=== PATIENT | female | born 1950 | race Caucasian/White ===

== ENCOUNTER 2019-01-11 08:49 | Day surgery (SDC) | payer MEDICARE, BC ==
[2019-01-08 15:04] VITALS: BMI 37.8
[2019-01-11 09:09] LABS: #Eosinphils 0.2 thou/uL (0.0-0.7); #Lymphocytes 1.5 thou/uL (1.20-3.40); #Monocytes 0.3 thou/uL (0.11-0.59); #Neutrophils 4.3 thou/uL (1.40-6.50); %Basophils 0.4 % (0.0-1.0); %Eosinophils 3.8 % (0.0-10.0); %Lymphocytes 23.9 % (21.0-51.0); %Monocytes 5.2 % (0.0-10.0); %Neutrophils 66.6 % (42.0-75.0); Hemoglobin 15.1 g/dL (12.0-16.0); Mean Corpuscular HGB CONC 31.5 g/dL (32.0-36.0); Mean Corpuscular Hemoglobin 27.4 pg (27.0-31.0); Mean Corpuscular Volume 86.9 fL (78.0-98.0); Mean Platelet Volume 7.6 fL (7.4-10.4); Platelet Count 287 thou/uL (130-400); RBC Distribution Width 16.1 % (11.5-14.5); White Blood Cell (WBC) Count 6.4 thou/uL (4.8-10.8)
[2019-01-11 09:18] LABS: INR-International Normal Ratio 0.9; PTT 33.4 SEC (22.9-36.1); Prothrombin Time 12.3 SEC (12.0-14.7)
[2019-01-11] MEDS ORDERED: Fentanyl 100 MCG/2 ML VIAL ONE (11:00)
[2019-01-11] MEDS ORDERED: Midazolam HCl 2 mg/2 ml Vial ONE (11:01)
[2019-01-11] MEDS ORDERED: Sodium Bicarbonate 2.5 MEQ/5 ML VIAL ONE (11:01)
[2019-01-11 11:04] VITALS: BP 140/75; TEMP 97.6
--- NOTE | 2019-01-11 13:22 | CT ---
CT-guided suprapubic catheter placement CONSCIOUS SEDATION: At least 40 minutes were spent with the patient for conscious sedation. HISTORY: Neurogenic bladder. Findings after explaining the procedure and answering all questions, limited CT imaging of the pelvis was performed. Initially, the urinary bladder is completely decompressed and behind bowel loops. 500 cc sterile saline was carefully instilled into the urinary bladder using gravity drainage. Suprap ubic approach was planned. Sterile technique, buffered local anesthesia, CT guidance, and conscious sedation were used to carefu lly advance a 12 [place] Meneses catheter into the urinary bladder using trocar technique. Balloon was inflated to hold position. Clear urine was drained. The catheter was secured externally with buffered local anesthesia and 0 silk suture. Patient tolerated the procedure well and was returned to the holding area in good condition for further monitoring. IMPRESSION: Technically successful CT-guided suprapubic catheter placement.
== END 2019-01-11 14:45 | disposition home or self-care (01) ==
LOC: RAD 08:49
PROVIDERS: ATTEND Urology
DX: N31.9 Neuromuscular dysfunction of bladder, unspecified (principal); I10 Essential (primary) hypertension; E11.9 Type 2 diabetes mellitus without complications; Z87.891 Personal history of nicotine dependence; Z88.8 Allergy status to other drugs, medicaments and biological substances
CPT/HCPCS: 51102; 77002; 85025; 85610; 85730; C2627; 36415; J2250; J3010

== ENCOUNTER 2019-03-10 13:50 | Inpatient (IN) | payer MEDICARE, BC ==
[2019-03-10 14:30] LABS: %Neutrophils 82.5 % (42.0-75.0); Hemoglobin 14.6 g/dL (12.0-16.0); Mean Corpuscular HGB CONC 33.4 g/dL (32.0-36.0); Mean Corpuscular Hemoglobin 29.1 pg (27.0-31.0); Mean Corpuscular Volume 87.1 fL (78.0-98.0); Mean Platelet Volume 8.8 fL (7.4-10.4); Platelet Count 274 thou/uL (130-400); RBC Distribution Width 15.9 % (11.5-14.5); Red Blood Cell (RBC) Count 5.01 mill/uL (4.20-5.40); White Blood Cell (WBC) Count 9.7 thou/uL (4.8-10.8)
[2019-03-10 14:31] LABS: #Eosinphils 0.1 thou/uL (0.0-0.7); #Lymphocytes 1.1 thou/uL (1.20-3.40); #Monocytes 0.6 thou/uL (0.11-0.59); %Basophils 0.2 % (0.0-1.0); %Eosinophils 0.5 % (0.0-10.0); %Lymphocytes 10.8 % (21.0-51.0)
[2019-03-10 14:31] LABS: Bacteria/HPF 3+ HPF (None Seen); Bilirubin Negative (Negative); Blood, Urine 2+ (Negative); Clarity Turbid (Clear); Glucose, Urine (Dipstick) Normal (Negative); Leukocyte 500 Leu/uL (Negative); Nitrite 2+ (Negative); Protein, Urine (Dipstick) 30 mg/dL (Neg-Trace); RBC/HPF Greater than 50 HPF (0-3); Squamous Epithelial None Seen HPF (0-3); Urobilinogen Normal mg/dL (Less than 2); WBC/HPF Greater than 50 HPF (0-3)
--- NOTE | 2019-03-10 14:38 | CT ---
EXAM: Brain CT scan Without contrast: HISTORY: Altered mental status shortness of breath COMPARISON: None FINDINGS: Motion artifact through the lower scan slices levels. Atrophy and chronic white matter ischemic change. No focal mass or midline shift. No intra or extra-axial hemorrhage. Minimal bilateral maxillary sinus mucosal disease. The mastoids are clear. IMPRESSION: No mass or bleed or other significant acute intracranial process.
[2019-03-10] MEDS ORDERED: cefTRIAXone\\ROCEPHIN 2 GM VIAL ONE (14:50)
--- NOTE | 2019-03-10 14:50 | RAD ---
SINGLE VIEW CHEST: Date: 03/10/19 COMPARISON: 02/14/17. HISTORY: Shortness of breath. FINDINGS: Single view of the chest shows an enlarged but stable cardiomediastinal silhouette with atherosclerot ic calcifications in the aorta. Increased interstitial lung markings are present. There is no evidenc e of consolidation, mass, or pleural effusion. IMPRESSION: No evidence of acute cardiopulmonary disease. POS: TPC
--- NOTE | 2019-03-10 14:55 | CT ---
CTA CHEST: Date: 03/10/19 COMPARISON: 10/24/04 CT abdomen. HISTORY: Tachycardia and shortness of breath. Slurred speech. TECHNIQUE: Multiple contiguous axial images were obtained in a CTA of the chest with contrast per pulmonary embo lism protocol. 3D oblique MIP reformats and direct coronal reformats were performed. FINDINGS: The pulmonary arteries are well opacified without filling defects to suggest pulmonary emboli. Mild b iventricular cardiomegaly is seen. No hilar or mediastinal lymphadenopathy seen. There are small bilateral pleural effusions with adjacent atelectasis. No focal infiltrates or suspic ious pulmonary masses are seen. Degenerative changes are seen in the spine. Remote right rib fractures are seen. There are stable bilateral adrenal masses. The other visualized subdiaphragmatic structures are unrem arkable. IMPRESSION: 1. No evidence of pulmonary thromboembolism. 2. Bibasilar atelectasis. 3. Stable bilateral adrenal masses. POS: TPC
[2019-03-10 14:59] LABS: ALT (SGPT) 15 U/L (8-55); AST (SGOT) 11 U/L (5-34); Albumin 4.1 g/dL (3.4-4.8); Alkaline Phosphatase 82 U/L (40-110); Anion Gap 16 mmol/L (10-20); BUN (Urea Nitrogen) 22 mg/dL (9.8-20.1); Bilirubin, Total 0.5 mg/dL (0.2-1.2); Calc. Creatinine Clearance 0 mL/min (70-130); Carbon Dioxide 29 mmol/L (23-31); Chloride 91 mmol/L (98-107); Estimated GFR-MDRD 65; Globulin 2.6 g/dL (2.4-3.5); Glucose 216 mg/dL (80-115); Potassium 3.3 mmol/L (3.5-5.1); Protein, Total 6.7 g/dL (6.0-8.3); Sodium 133 mmol/L (136-145)
[2019-03-10] MEDS ORDERED: Vancomycin HCl 1.5 GM in Sodium Chloride 0.9% 250 ML 300 ML IVPB SCH (15:30)
[2019-03-10] MEDS ORDERED: MEROPENEM 1 GM/50 ML 1 GM in Premix Bag 1 BAG IVPB SCH (17:00)
[2019-03-10] MEDS ORDERED: Acetaminophen 650 MG Suppository PR PRN (17:39)
[2019-03-10] MEDS ORDERED: Ondansetron PF 4 MG/2 ML Vial IVP PRN (17:39)
[2019-03-10] MEDS ORDERED: Ondansetron ODT 4 MG TAB PO PRN (17:39)
[2019-03-10] MEDS ORDERED: HumaLOG 300 UNITS/3 ML VIAL SC PRN (17:44)
[2019-03-10] MEDS ORDERED: Dextrose 50% Abboject 50 ML SYRINGE SLOW IVP PRN (17:44)
[2019-03-10] MEDS ORDERED: Dextrose 5% in Water 1,000 ML IV PRN (17:44)
[2019-03-10] MEDS ORDERED: ISOVUE-370 76%-LOCM 1 ML ONE (18:00)
[2019-03-10] MEDS ORDERED: Potassium Chloride 20 MEQ in Premix Bag 1 BAG IVPB SCH (18:00)
--- NOTE | 2019-03-10 18:01 | PDOC.EVN ---
Event Note - Event Note Event Note: Saw the patient with Tangela. She denies CP or SOB, but has persistent tachycardia on monitor. Very regular and steady at 140. Lungs are clear. Heart is faint, but tachy and regular. BP 130's/110. She has had at least two liters of fluid and she has not had any change in the rate. Sent EKG to Dr. Miranda. A-flutter with 2:1. Will try IV Cardizem and keep NPO. Otherwise, agree with the plan to treat the UTI.
--- NOTE | 2019-03-10 18:12 | PDOC.HHP ---
Hospitalist HPI - History of Present Illness shortness of breath History of Present Illness: Ms. Rebolledo is a 68 year old woman with a known history of ALS with chronic suprapubic catheter, for which she follows with Dr. Wrgiht, who presents with increasing shortness of breath since Friday. Per EMS she was tachycardic at 143, BP 179/93 (normally her BP is below 120s systolic) and had low sats according to her . She denies having any fever at home, no chest pain or cough. No changes with her appetite. She does suffer from chronic constipation but denies any abdominal pain and had a bowel movement yesterday. She manages this with Senna. Denies any blood in her stools. No nausea or vomiting. Denies any lower leg swelling. She her arrival family and patient both state that breathing has improved ever since she was started on antibiotics. She does not have any history of asthma or copd. No issues with her breathing at baseline. Reports having no issues with her swallowing, and is able to tolerate a regular diet without any modifications. ED Course: In the ED she was noted to have a UTI associated with the suprapubic catheter and started on IV Abx with Vancomycin, Ceftriaxone and meropenem. She has received 1.5L of fluids. Her HR has remained elevated in the 130s-140s range. She has remained afebrile. Her lactic acid was normal. CXR done and showed no acute intrathoracic abnormalities. BNP done was 421. Initial troponin negative. WCC normal at 9.7. Blood cultures and urine cultures obtained. EKG: atrial tachycardia with HR of 143 with premature supraventricular complexes. CTA done which was negative for PE, showed bibasalar atelectasis and stable bilateral adrenal masses. Hospitalist ROS - Review of Systems Constitutional: reports: malaise. denies: fever, chills, sweats, weakness, other Eyes: denies: pain, vision change, conjunctivae inflammation, eyelid inflammation, redness, other ENT: denies: ear pain, ear discharge, nose pain, nose discharge, nose congestion , mouth pain, mouth swelling, throat pain, throat swelling, other Respiratory: reports: shortness of breath. denies: cough, dry, hemoptysis, SOB with excertion, pleuritic pain, sputum, wheezing, other Cardiovascular: denies: chest pain, palpitations, orthopnea, paroxysmal noc. dyspnea, edema, light headedness, other Gastrointestinal: reports: constipation (chronic). denies: nausea, vomiting, abdominal pain, diarrhea, melena, hematochezia, other Genitourinary: denies: dysuria, frequency, incontinence, hematuria, retention, other Musculoskeletal: denies: neck pain, shoulder pain, arm pain, back pain, hand pain, leg pain, foot pain, other Skin: denies: rash, lesions, raquel, bruising, other Neurological: reports: weakness (chronic due to ALS). denies: numbness, incoordination, change in speech, confusion, seizures, other Hospitalist History - Past Medical History Source: patient, family Cardiac: reports: CHF Other Medical History: ALS Suprapubic catheter, chronic - Past Surgical History Past Surgical History: reports: Hysterectomy Other Surgical History: Baclofen pump installation Right ankle surgery - Social History Tobacco Type: cigarettes (ecigarettes) Alcohol: reports: None Drugs: reports: none Living Situation: With Family Activity level: bed bound - Exam General Appearance: ill appearing General - other findings: per family she is at baseline, with improved breathing Eye: PERRL, anicteric sclera ENT: normocephalic atraumatic, no oropharyngeal lesions Neck: supple, symmetric, no JVD Heart: RRR, no murmur, no gallops, normal peripheral pulses Respiratory: CTAB, no wheezes, no rales, no ronchi Respiratory - other findings: labored breathing Gastrointestinal: soft, non-tender, non-distended, normal bowel sounds Extremities: no cyanosis, no edema Skin: no lesions, no rashes Neurological: no new deficit Hospitalist Results - Labs Result Diagrams: 03/10/19 14:17 03/10/19 14:17 Lab results: WBC 9.7 thou/uL (4.8-10.8) 03/10/19 14:17 Hgb 14.6 g/dL (12.0-16.0) 03/10/19 14:17 Hct 43.6 % (36.0-47.0) 03/10/19 14:17 MCV 87.1 fL (78.0-98.0) 03/10/19 14:17 Plt Count 274 thou/uL (130-400) 03/10/19 14:17 Neutrophils % 82.5 % (42.0-75.0) H 03/10/19 14:17 Sodium 133 mmol/L (136-145) L 03/10/19 14:17 Potassium 3.3 mmol/L (3.5-5.1) L 03/10/19 14:17 Chloride 91 mmol/L (98-107) L 03/10/19 14:17 Carbon Dioxide 29 mmol/L (23-31) 03/10/19 14:17 BUN 22 mg/dL (9.8-20.1) H 03/10/19 14:17 Creatinine 0.87 mg/dL (0.6-1.1) 03/10/19 14:17 Glucose 216 mg/dL (80-115) H 03/10/19 14:17 Lactic Acid 2.0 mmol/L (0.5-2.2) 03/10/19 14:16 Calcium 10.0 mg/dL (7.8-10.44) 03/10/19 14:17 Total Bilirubin 0.5 mg/dL (0.2-1.2) 03/10/19 14:17 AST 11 U/L (5-34) 03/10/19 14:17 ALT 15 U/L (8-55) 03/10/19 14:17 Alkaline Phosphatase 82 U/L (40-110) 03/10/19 14:17 Troponin I 0.020 ng/mL (< 0.028) 03/10/19 14:17 B-Natriuretic Peptide 421.8 pg/mL (0-100) H 03/10/19 14:17 Serum Total Protein 6.7 g/dL (6.0-8.3) 03/10/19 14:17 Albumin 4.1 g/dL (3.4-4.8) 03/10/19 14:17 Urine Ketones Negative mg/dL (Negative) 03/10/19 14:08 Urine Blood 2+ (Negative) A 03/10/19 14:08 Urine Nitrite 2+ (Negative) A 03/10/19 14:08 Ur Leukocyte Esterase 500 Yeni/uL (Negative) A 03/10/19 14:08 Urine RBC Greater than 50 HPF (0-3) A 03/10/19 14:08 Urine WBC Greater than 50 HPF (0-3) A 03/10/19 14:08 Ur Squamous Epith Cells None Seen HPF (0-3) 03/10/19 14:08 Urine Bacteria 3+ HPF (None Seen) A 03/10/19 14:08 - Radiology Interpretation CT scan - chest Status: report reviewed by me Hospitalist H&P A/P - Problem (1) Shortness of breath Code(s): R06.02 - SHORTNESS OF BREATH Status: Acute Assessment and Plan: Per patient, has improved. ABG requested. Monitor O2 sats. (2) Atrial flutter Code(s): I48.92 - UNSPECIFIED ATRIAL FLUTTER Status: Acute Assessment and Plan: Tachycardia initially felt to be due to infection or dehdyration. Patient symptomatically improved with fluids and abx, however remains tachycardic. EKG reviewed by Dr. Miranda, (following discussion with Dr. Beaver who has assessed patient). Has advised patient in 2:1 atrial flutter, Cardizem 20 mg IV x 1 recommended. Continue cardiac monitoring. Patient aware she is to remain NPO, in the event she needs cardioversion. (3) UTI (urinary tract infection) due to urinary indwelling catheter Code(s): T83.511A - I/I REACT D/T INDWELLING URETHRAL CATHETER, INIT; N39.0 - URINARY TRACT INFECTION, SITE NOT SPECIFIED Status: Acute Assessment and Plan: Due to suprapubic catheter, due for exchange in the next few days. Consult placed to Dr. Wright. Continue IV Abx. Awaiting UCx. (4) Diabetes mellitus Code(s): E11.9 - TYPE 2 DIABETES MELLITUS WITHOUT COMPLICATIONS Status: Chronic Assessment and Plan: Insulin sliding scale, monitor glucose. (5) ALS (amyotrophic lateral sclerosis) Code(s): G12.21 - AMYOTROPHIC LATERAL SCLEROSIS Status: Chronic - Plan Plan: Resume home medications once verified. Code Status: FULL. Surrogate decision maker is her , Giovanny Rebolledo. Patients case discussed with Dr. Beaver who has also evaluated patient and agrees with plan as above.
[2019-03-10] MEDS: Famotidine/PF 20 mg/2ml Vial SLOW IVP SCH (19:57)
[2019-03-10] MEDS: Diltiazem HCl 125 MG, Admixture Fee 1 EACH in Sodium Chloride 0.9% 100 ML IVPB SCH (22:34)
[2019-03-11 04:45] LABS: #Basophils 0.1 thou/uL (0.0-0.2); #Eosinphils 0.2 thou/uL (0.0-0.7); #Lymphocytes 1.4 thou/uL (1.20-3.40); #Monocytes 0.6 thou/uL (0.11-0.59); #Neutrophils 4.4 thou/uL (1.40-6.50); %Basophils 0.8 % (0.0-1.0); %Eosinophils 2.4 % (0.0-10.0); %Lymphocytes 21.7 % (21.0-51.0); %Monocytes 9.2 % (0.0-10.0); %Neutrophils 65.9 % (42.0-75.0); Hemoglobin 13.1 g/dL (12.0-16.0); Mean Corpuscular Hemoglobin 29.1 pg (27.0-31.0); Mean Corpuscular Volume 88.1 fL (78.0-98.0); Mean Platelet Volume 8.9 fL (7.4-10.4); Platelet Count 241 thou/uL (130-400); White Blood Cell (WBC) Count 6.6 thou/uL (4.8-10.8)
[2019-03-11 05:10] LABS: Anion Gap 14 mmol/L (10-20); BUN (Urea Nitrogen) 19 mg/dL (9.8-20.1); Calc. Creatinine Clearance 119 mL/min (70-130); Calcium 9.1 mg/dL (7.8-10.44); Carbon Dioxide 27 mmol/L (23-31); Chloride 96 mmol/L (98-107); Estimated GFR-MDRD 75; Glucose 152 mg/dL (80-115); Potassium 3.2 mmol/L (3.5-5.1); Sodium 134 mmol/L (136-145)
[2019-03-11] MEDS ORDERED: Potassium Chloride 40 MEQ in Premix Bag 1 BAG IVPB SCH (08:30)
[2019-03-11] MEDS ORDERED: Potassium Chloride 20 MEQ in Premix Bag 1 BAG IVPB SCH (09:00)
--- NOTE | 2019-03-11 09:00 | PDOC.HOSPP ---
- Subjective Encounter Date: 03/11/19 Encounter Time: 08:59 Subjective: Feeling much better. Wants to eat. Has had numerous swallow studies. Has not had any problems swallowing at home. Breathing better this morning. - Objective Vital Signs & Weight: Vital Signs (12 hours) Temp Pulse Resp BP Pulse Ox 03/11/19 07:36 98.2 F 101 H 20 110/77 96 03/11/19 04:00 98.3 F 93 19 122/76 93 L 03/10/19 22:40 142 H 117/71 100 Weight Weight 237 lb 4.8 oz I&O: 03/10/19 03/11/19 03/12/19 06:59 06:59 06:59 Intake Total 230 Output Total 375 Balance -145 Result Diagrams: 03/11/19 04:06 03/11/19 04:06 Additional Labs: Accuchecks 03/11/19 03/10/19 05:28 20:26 POC Glucose 150 H 157 H Hospitalist ROS - Medication Medications: Active Medications Generic Name Dose Route Start Last Admin Trade Name Darron PRN Reason Stop Dose Admin Famotidine 20 mg 03/10/19 21:00 03/10/19 19:57 Pepcid SLOW IVP 20 mg Q12HR SHIRIN Administration Diltiazem HCl 125 mg/ 125 mls @ 10 mls/hr 03/10/19 22:30 03/10/19 22:34 Miscellaneous Medication 1 IVPB 125 mls each/ Sodium Chloride INF SHIRIN Administration Protocol - Exam General Appearance: NAD, awake alert Heart: no murmur, no gallops, irregular Respiratory: CTAB, no wheezes, no rales, no ronchi, normal chest expansion, no tachypnea, normal percussion Gastrointestinal: soft, non-tender, non-distended, normal bowel sounds, no palpable masses, no hepatomegaly, no splenomegaly, no bruit Extremities: no edema Skin: normal turgor Neurological - other findings: Slight dysarthria. Musculoskeletal: generalized weakness Hosp A/P (1) Atrial flutter with rapid ventricular response Code(s): I48.92 - UNSPECIFIED ATRIAL FLUTTER Status: Acute (2) Shortness of breath Code(s): R06.02 - SHORTNESS OF BREATH Status: Acute (3) ALS (amyotrophic lateral sclerosis) Code(s): G12.21 - AMYOTROPHIC LATERAL SCLEROSIS Status: Chronic (4) Diabetes mellitus Code(s): E11.9 - TYPE 2 DIABETES MELLITUS WITHOUT COMPLICATIONS Status: Chronic (5) COPD (chronic obstructive pulmonary disease) Status: Chronic (6) Hypokalemia Code(s): E87.6 - HYPOKALEMIA Status: Acute (7) UTI (urinary tract infection) due to urinary indwelling catheter Code(s): T83.511A - I/I REACT D/T INDWELLING URETHRAL CATHETER, INIT; N39.0 - URINARY TRACT INFECTION, SITE NOT SPECIFIED Status: Acute - Plan Rate is much better controlled. Still on Cardizem gtt. Will not likely need cardioversion. Will allow her to eat. Cardiology consult pending. Can likely try to convert to oral meds. Discussed with Dr. Wright. He will see her for SPC exchange. She may be colonized with Enterococcus that is growing in the culture. On Vanc. Will await sensitivities. Symptoms may have been more related to the tachycardia. She has dysarthria, but has had multiple swallow studies with no problems. Will give regular diet. Blood sugars controlled. Continue oral meds. Replete potassium. Continue Pramipexole, Pyridostigmine.
[2019-03-11] MEDS ORDERED: Clopidogrel Bisulfate 75 MG TAB PO SCH (09:15)
[2019-03-11] MEDS ORDERED: Enoxaparin Sodium 80 MG/0.8 ML SYRINGE SC SCH ×2 (09:15→21:00)
[2019-03-11] MEDS: Famotidine/PF 20 mg/2ml Vial SLOW IVP SCH ×2 (09:17→20:44)
[2019-03-11] MEDS ORDERED: Venlafaxine XR 37.5 MG CAP PO SCH (09:30)
[2019-03-11] MEDS ORDERED: Pramipexole Di-HCl 0.25 MG TAB PO SCH (09:30)
[2019-03-11 09:59] LABS: Base Excess-Venous 4.1 mmol/L (-2.0 to 3.0); Bicarbonate (HCO3v) 24.5 mmol/L (22.0-28.0); CO2 Tension (PvCO2) 26.3 mmHg (40.0-50.0); Calcium, Ionized 0.94 mmol/L (See Comments:); Chloride 97 mmol/L (98-107); Hemoglobin - Calc 16.3 g/dL (12.0-16.0); Potassium 3.2 mmol/L (3.5-5.1); Sodium 132 mmol/L (138-145); T. Carbon Dioxide 25.4 mmol/L (22.0-28.0); vO2 Saturation-calc 99.9 % (60.0-85.0)
[2019-03-11] MEDS: Diltiazem HCl 125 MG, Admixture Fee 1 EACH in Sodium Chloride 0.9% 100 ML IVPB SCH (10:23)
[2019-03-11] MEDS ORDERED: Furosemide 20 MG TAB PO SCH (10:30)
[2019-03-11] MEDS ORDERED: Potassium Chloride 20 MEQ TAB PO SCH ×2 (10:30→20:00)
[2019-03-11] MEDS ORDERED: Magnesium 2 GM/50 ML 2 GM in Premix Bag 1 BAG IVPB SCH (11:00)
[2019-03-11] MEDS ORDERED: Furosemide 40 MG/4 ML VIAL SLOW IVP SCH (11:00)
--- NOTE | 2019-03-11 14:45 | CON ---
DATE OF CONSULTATION: 03/11/2019 REASON FOR CONSULTATION: Atrial flutter and atrial fibrillation. HISTORY OF PRESENT ILLNESS: Ms. Rebolledo is a 68-year-old woman with severe multiple medical problems with also atrial arrhythmias. Ms. Rebolledo has a neurologic disorder. 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 She has had progressive muscle weakness associated with this. She is unable to walk. She is even unable to transfer from the bed to the chair due to this severe neurologic disorder. She also has chronic constipation and urinary retention and has in the past received a suprapubic catheter. She does have intermittent urinary infections and does have urinary infection on this occasion. This is being treated with three antibiotics currently. The patient's heart rate was 130 to 140 initially, it is atrial flutter. The patient states that she does not aware of having heart problems in the past. No chest pain or pressure. She said she is actually feeling better today. Her heart rate is lower and she is in atrial fibrillation. MEDICATIONS: At home; 1. Furosemide 20 mg a day. 2. Hydrochlorothiazide 25 mg a day. 3. Aspirin. 4. Clopidogrel. 5. Metformin. 6. Actos. 7. Multivitamin. 8. Iron. 9. Naproxen. REVIEW OF SYSTEMS: CONSTITUTIONAL: Positive for weakness and fatigue. VISION: No changes. HEARING: No changes. PULMONARY: No cough or wheezing. GASTROINTESTINAL: Constipation. CARDIAC: No angina. MUSCULOSKELETAL: No unusual joint pains. She does have severe muscle weakness. SOCIAL HISTORY: No alcohol or tobacco. FAMILY HISTORY: Negative for heart disease at a young age. ALLERGIES: NONE KNOWN. PHYSICAL EXAMINATION: GENERAL: This is a very pleasant, extremely overweight female, 5 feet 4 inches tall, 237 pounds, and BMI is 40.7. HEENT: Eyes, sclerae nonicteric. Mouth, mucous membranes moist. NECK: Supple. No lymphadenopathy. LUNGS: Clear. CARDIAC: Irregularly irregular. HEART: Sounds distant. No murmur, rub, or gallop. ABDOMEN: Obese and nontender. No hepatosplenomegaly. EXTREMITIES: Warm and dry. No clubbing or cyanosis. There is moderate edema. DIAGNOSTIC STUDIES: EKG initially showed atrial flutter with a right bundle branch block, now it is atrial fibrillation. The rate is lower with a right bundle branch block. PERTINENT LABORATORY DATA: Her potassium is 3.2. BNP is 421.8, compatible with heart failure. Magnesium is low as 1.4. ASSESSMENT: 1. Atrial flutter. 2. Atrial fibrillation. 3. Right bundle branch block. 4. Congestive heart failure, probably diastolic, chronic. Ejection fraction is pending. 5. Recurrent urinary tract infection. 6. Neurologic disorder as outlined above. 7. Morbid obesity. 8. Diabetes. PLAN: 1. Replete potassium and magnesium. 2. We will give her a trial of Multaq. 3. If she does not convert to sinus rhythm, may need a transesophageal echo and cardioversion. 4. Increase enoxaparin dose. 5. Consideration for trying one of the new sodium glucose transporter inhibitors would be much better with her heart failure than Actos. Heart failure probably playing some role in her atrial arrhythmias. 6. Echocardiogram pending. Job ID: [id number]
[2019-03-11] MEDS ORDERED: Vancomycin HCl 1.5 GM in Sodium Chloride 0.9% 250 ML 300 ML IVPB SCH (15:00)
[2019-03-11] MEDS: Dronedarone HCl 400 MG TAB PO SCH (16:11)
[2019-03-11] MEDS: Pyridostigmine Bromide IR 60 MG TAB PO SCH ×2 (16:11→20:44)
[2019-03-11] MEDS: metFORMIN 500 MG TAB PO SCH (16:11)
[2019-03-11] MEDS ORDERED: Non-Formulary Item 1 EACH (Metformin Hcl [Metformin Hcl] 1,000 MG) PO SCH (17:00)
[2019-03-11] MEDS: Ferrous Sulfate 325 MG TAB PO SCH (20:44)
[2019-03-11] MEDS: Trospium 20 MG TAB PO SCH (20:44)
[2019-03-11] MEDS: Enoxaparin Sodium 120 MG/0.8 ML SYRINGE SC SCH (20:45)
[2019-03-11] MEDS ORDERED: Non-Formulary Item 1 EACH (Ferrous Sulfate [Ferrous Sulfate] 325 MG) PO SCH (21:00)
--- NOTE | 2019-03-11 22:06 | CON ---
DATE OF CONSULTATION: 03/11/2019 CONSULTING: [facility], Dr. Beaver. REASON FOR CONSULT: SP tube change. HISTORY OF PRESENT ILLNESS: Mrs. Rebolledo is a 68-year-old white female with ALS with chronic suprapubic catheter for neurogenic bladder and difficulty with urination incontinence. She was taken by EMS to the emergency room with tachycardia up to 143, and blood pressure 179/93. After being admitted, it was found that the patient is likely in atrial flutter with atrial fibrillation with evidence of congestive heart failure. This likely was responsible for her symptoms of shortness of breath, chest discomfort, and feelings of malaise. There was some concern about whether or not she had any kind of UTI. Her urine culture is growing enterococcus, but she has a chronic indwelling suprapubic catheter. She had no other significant signs of infection. She states that she does get bladder spasms only for a day or two after her tube changes and then she has no further problems thereafter. Her bladder has been feeling fine without any significant issues or hematuria in the last several days. She is scheduled for an SP tube change tomorrow in my office, but since she is currently admitted, Dr. Beaver asked if I would come by and change her SP tube today. ALLERGIES: NONE. HOME MEDICATIONS: 1. Metformin. 2. Venlafaxine. 3. Mestinon. 4. Mirapex. 5. Actos. 6. Aleve. 7. Multivitamin. 8. Hydrochlorothiazide. 9. Lasix. 10. Ferrous sulfate. 11. B12. 12. Plavix. 13. Aspirin. 14. Baclofen. PAST MEDICAL HISTORY: 1. CHF. 2. ALS. 3. Diabetes. 4. Atrial fibrillation. 5. Atrial flutter. 6. Morbid obesity. PAST SURGICAL HISTORY: 1. SP tube placement. 2. Hysterectomy. 3. D and C. 4. Tonsils and adenoid removal. FAMILY HISTORY: Significant for breast cancer and heart disease. SOCIAL HISTORY: The patient is a nonsmoker. She denies alcohol abuse or illicit drug use. PHYSICAL EXAMINATION: VITAL SIGNS: Temperature 98.2, pulse 101, respirations 20, blood pressure 141/73, saturation 96% on 2 L nasal cannula. GENERAL: No apparent distress. Well nourished, well developed, morbidly obese, answering questions appropriately. HEENT: Normocephalic, atraumatic. Pupils are symmetric and round. Nasal cannula in place. Moist mucous membranes. CARDIOVASCULAR: rhythm. Normal S1 and S2. Symmetric pulses. CHEST: No increased work of breathing. Symmetric expansion of lungs. Difficult to auscultate secondary to patient's size. ABDOMEN: Soft, obese belly, nondistended, nontender. SP tube in place, draining clear yellow urine. EXTREMITIES: No clubbing, cyanosis, or edema. SKIN: Warm and dry. Good turgor. No rashes or lesions. : Deferred at this time. PSYCHIATRIC: Alert and oriented x3. Appropriate mood and affect. LABORATORY EVALUATION: White count of 6.6, hemoglobin of 13.1, creatinine of 0.77. PROCEDURE: SP tube was changed under sterile conditions. The site was prepped with Betadine. Prior SP tube was removed which was a 14-Croatian catheter and a 16-Croatian silicone Meneses catheter was inserted with ease into the patient's bladder. A 10 mL of sterile water was placed into the balloon. Catheter was secured with a StatLock and dressing applied. The patient tolerated the procedure well. ASSESSMENT AND PLAN: A 68-year-old white female with newly diagnosed atrial fibrillation, atrial flutter with congestive heart failure, likely responsible for patient's symptoms. From my current standpoint, I do not think the patient has any evidence of a urinary tract infection. Since she does have bladder spasms, I will start her on trospium 20 mg p.o. b.i.d. to take during her hospitalization. If she likes the medication, we can send this to her as an outpatient as well, or she can just use it on a p.r.n. basis. Her catheter has been changed today. We will make adjustments to our office schedule so that we will see her back in 30 days for the next SP tube up sizing up to an 18-Croatian catheter. Job ID: [id number]
[2019-03-12 05:56] LABS: Anion Gap 14 mmol/L (10-20); BUN (Urea Nitrogen) 16 mg/dL (9.8-20.1); Calc. Creatinine Clearance 112 mL/min (70-130); Calcium 9.1 mg/dL (7.8-10.44); Carbon Dioxide 29 mmol/L (23-31); Chloride 99 mmol/L (98-107); Estimated GFR-MDRD 69; Glucose 163 mg/dL (80-115); Potassium 3.9 mmol/L (3.5-5.1); Sodium 138 mmol/L (136-145)
[2019-03-12 06:05] LABS: #Eosinphils 0.2 thou/uL (0.0-0.7); #Monocytes 0.5 thou/uL (0.11-0.59); #Neutrophils 5.5 thou/uL (1.40-6.50); %Basophils 0.4 % (0.0-1.0); %Eosinophils 2.7 % (0.0-10.0); %Lymphocytes 13.8 % (21.0-51.0); %Monocytes 6.3 % (0.0-10.0); %Neutrophils 76.9 % (42.0-75.0); Hemoglobin 12.9 g/dL (12.0-16.0); Mean Corpuscular HGB CONC 32.6 g/dL (32.0-36.0); Mean Corpuscular Hemoglobin 28.2 pg (27.0-31.0); Mean Corpuscular Volume 86.4 fL (78.0-98.0); Mean Platelet Volume 8.5 fL (7.4-10.4); Platelet Count 239 thou/uL (130-400); RBC Distribution Width 15.9 % (11.5-14.5); RBC Morphology Normal; Red Blood Cell (RBC) Count 4.58 mill/uL (4.20-5.40); White Blood Cell (WBC) Count 7.2 thou/uL (4.8-10.8)
[2019-03-12] MEDS ORDERED: Non-Formulary Item 1 EACH (Pramipexole Di-Hcl [Mirapex] 0.5 MG) PO SCH (09:00)
[2019-03-12] MEDS ORDERED: Clopidogrel Bisulfate 75 MG TAB PO SCH (09:00)
[2019-03-12] MEDS ORDERED: Pioglitazone HCl 45 MG TAB PO SCH (09:00)
--- NOTE | 2019-03-12 09:48 | PRG ---
DATE OF SERVICE: 03/12/2019 SUBJECTIVE: Ms. Rebolledo is awake and alert and is really feeling differently. However, she is back in sinus rhythm with PACs now. OBJECTIVE: VITAL SIGNS: Blood pressure 99/73 and pulse 76 with premature contractions. LUNGS: Clear. CARDIAC: Normal S1 and normal S2 with premature beats. ABDOMEN: Obese and nontender. ASSESSMENT: 1. Paroxysmal atrial fibrillation in sinus rhythm with PACs. 2. Morbid obesity. 3. Neurologic disease as previously outlined. PLAN: 1. Change to oral diltiazem. 2. She is on Multaq. 3. Change to Eliquis from Lovenox. Job ID: [id number]
[2019-03-12] MEDS: Enoxaparin Sodium 120 MG/0.8 ML SYRINGE SC SCH (10:37)
[2019-03-12] MEDS: Dronedarone HCl 400 MG TAB PO SCH (10:37)
[2019-03-12] MEDS: Pramipexole Di-HCl 0.25 MG TAB PO SCH (10:38)
[2019-03-12] MEDS: metFORMIN 500 MG TAB PO SCH ×2 (10:38→16:06)
[2019-03-12] MEDS: Pyridostigmine Bromide IR 60 MG TAB PO SCH ×3 (10:39→19:55)
[2019-03-12] MEDS: Trospium 20 MG TAB PO SCH ×2 (10:39→19:54)
[2019-03-12] MEDS: Furosemide 20 MG TAB PO SCH (10:39)
[2019-03-12] MEDS: Ferrous Sulfate 325 MG TAB PO SCH ×2 (10:39→19:54)
[2019-03-12] MEDS: Apixaban 5 MG TAB PO SCH ×2 (10:39→19:54)
[2019-03-12] MEDS: Aspirin Chewable 81 MG TAB PO SCH (10:40)
[2019-03-12] MEDS: Venlafaxine HCl XR 75 MG CAP PO SCH (10:40)
[2019-03-12] MEDS: Famotidine/PF 20 mg/2ml Vial SLOW IVP SCH ×2 (10:40→19:54)
--- NOTE | 2019-03-12 12:50 | PQF ---
DATE: 03-12-19 ATTN: DR. LOU CID Please exercise your independent, professional judgment in responding to the clarification form. Clinical indicators are provided on the bottom of this form for your review Please check appropriate box(s) to clarify if the following diagnosis has been ruled in or ruled out: SEPSIS [ ] Ruled in diagnosis [ ] Continue to treat [ ] Resolved [ x ] Ruled out diagnosis [ ] Other diagnosis [ ] Unable to determine In addition, please specify: Present on Admission (POA): [ ] Yes [ ] No [ ] Unable to determine For continuity of documentation, please document condition throughout progress notes and discharge summary. Thank You. CLINICAL INDICATORS - SIGNS / SYMPTOMS / LABS: ER NOTES 03-10-19: COMPLAINT POSSIBLE SEPSIS, C/O INTERMITTENT DIFFICULTY BREATHING WITH MENTAL STATUS DECLINE FOR THE PAST 2-3 DAYS PER EMS, TACHYCARDIC IN THE 140-150'S ER NOTES 03-10-19: SHE WILL BE ADMITTED TO THE TELEMETRY FLOOR FOR UROSEPSIS FOR CONTINUED IV ANTIBIOTICS AND MANAGEMENT. ER DX 03-10-19: UROSEPSIS, TACHYCARDIA H&P: UTI D/T URINARY INDWELLING CATHETER D/T SUPRAPUBIC CATH ER NOTE 03-10-19: 159/115, 144, 24, SOB, MENTAL STATUS DECLINE FOR THE PAST 2-3 PER EMS, HX OF MS TYPE OF CONDITION, TACHYCARDIC 140-150'S ER NOTE 03-10-19: BP: 159/115, 139/109, 144/110, 129/111, 150/111, 146/ 122 PULSE: 144, 143, 142, 139, 139, 138, 140, 144 RR: 24, 26, 26, 26, 24, 24 RISK FACTORS: H&P: UTI D/T URINARY INDWELLING CATHETER D/T SUPRAPUBIC CATH ER NOTE 03-10-19: 159/115, 144, 24, SOB, MENTAL STATUS DECLINE FOR THE PAST 2-3 PER EMS, HX OF MS TYPE OF CONDITION, TACHYCARDIC 140-150'S TREATMENTS: ER NOTES 03-12-19: CEFTRIAXONE IV, IVF NS, MEROPENEM IV, VANCOMYCIN IV (This form is maintained as a part of the permanent medical record) 2014 [employer]. All Rights Reserved HARRIS [email or web address] Office: [phone] [email or web address]
[2019-03-12] MEDS: Diltiazem HCl 125 MG, Admixture Fee 1 EACH in Sodium Chloride 0.9% 100 ML IVPB SCH (18:23)
[2019-03-12] MEDS: Acetaminophen 325 MG TAB PO PRN (19:55)
[2019-03-12 20:43] LABS: Hemoglobin 13.3 g/dL (12.0-16.0); Platelet Count 261 thou/uL (130-400)
[2019-03-13 02:35] LABS: #Basophils 0.1 thou/uL (0.0-0.2); #Eosinphils 0.4 thou/uL (0.0-0.7); #Lymphocytes 3.2 thou/uL (1.20-3.40); #Monocytes 0.9 thou/uL (0.11-0.59); #Neutrophils 8.4 thou/uL (1.40-6.50); %Basophils 0.6 % (0.0-1.0); %Eosinophils 2.8 % (0.0-10.0); %Lymphocytes 24.7 % (21.0-51.0); %Monocytes 6.9 % (0.0-10.0); Hemoglobin 15.2 g/dL (12.0-16.0); Mean Corpuscular HGB CONC 32.7 g/dL (32.0-36.0); Mean Corpuscular Hemoglobin 28.8 pg (27.0-31.0); Mean Corpuscular Volume 88.1 fL (78.0-98.0); Mean Platelet Volume 8.7 fL (7.4-10.4); Platelet Count 303 thou/uL (130-400); RBC Distribution Width 16.2 % (11.5-14.5); White Blood Cell (WBC) Count 12.9 thou/uL (4.8-10.8)
[2019-03-13 02:48] LABS: ALT (SGPT) 18 U/L (8-55); AST (SGOT) 13 U/L (5-34); Albumin 4.2 g/dL (3.4-4.8); Alkaline Phosphatase 90 U/L (40-110); Anion Gap 20 mmol/L (10-20); BUN (Urea Nitrogen) 17 mg/dL (9.8-20.1); Bilirubin, Total 0.5 mg/dL (0.2-1.2); Calc. Creatinine Clearance 87 mL/min (70-130); Calcium 9.2 mg/dL (7.8-10.44); Carbon Dioxide 21 mmol/L (23-31); Chloride 99 mmol/L (98-107); Estimated GFR-MDRD 52; Globulin 3.3 g/dL (2.4-3.5); Glucose 237 mg/dL (80-115); Potassium 4.4 mmol/L (3.5-5.1); Protein, Total 7.5 g/dL (6.0-8.3); Sodium 136 mmol/L (136-145)
[2019-03-13 02:55] LABS: Actual Bicarbonate (HCO3a) 24.8 mEq/L (22-28); Analyzer IN Cardio OR; Base Excess (BEa) -1.4 mEq/L (-2.0 to +3.0); CO2 Tension 47.3 mmHg (35.0-45.0); Calcium, Ionized 1.15 mmol/L (1.12-1.30); Hemoglobin (Hb) 14.5 g/dL (12.0-16.0); O2 Tension (PaO2) 195.3 mmHg (> 80.0); Potassium - ABG Lab 5.46 mmol/L (3.70-5.30); pH, Arterial 7.34 (7.35-7.45)
[2019-03-13 02:56] LABS: Puncture Site RRA
[2019-03-13 02:57] LABS: ALV-art Gradient 458.575 (0-20)
[2019-03-13 03:04] LABS: Lactic Acid 5.4 mmol/L (0.5-2.2)
[2019-03-13] MEDS ORDERED: Furosemide 40 MG/4 ML VIAL SLOW IVP SCH (03:15)
--- NOTE | 2019-03-13 03:17 | PDOC.HOSPP ---
- Subjective Encounter Date: 03/13/19 Encounter Time: 03:15 non-verbal Subjective: chief complaint: respiratory distress called to bedside between 2 and 3 am for tachycardia, hypoxia, respiratory distress. EKG ordered and reviewed, appeared to be sinus tachycardia rate in 160s, discussed case and reviewed EKGs ith Dr Roger advertising sales consultant for cardiology who did not believe this was STEMI. Patient nonverbal but appeared in significant distress on initial visit - Objective Vital Signs & Weight: Vital Signs (12 hours) Temp Pulse Resp BP Pulse Ox 03/13/19 02:32 170 H 20 03/13/19 02:29 170 H 28 H 80 L 03/13/19 00:00 97.8 F 91 20 100/71 98 03/12/19 20:22 112 H 20 100 03/12/19 20:00 99.2 F 102 H 22 H 128/89 100 03/12/19 16:42 97.8 F 89 22 H 117/82 95 Weight Admit Weight 237 lb 4.8 oz Weight 237 lb 4.8 oz I&O: 03/11/19 03/12/19 03/13/19 06:59 06:59 06:59 Intake Total 230 1475 680 Output Total 375 1625 320 Balance -145 -150 360 Result Diagrams: 03/13/19 02:20 03/13/19 02:20 Additional Labs: Accuchecks 03/13/19 03/12/19 03/12/19 02:06 20:17 17:00 POC Glucose 138 H 192 H 143 H 03/12/19 03/12/19 10:58 05:32 POC Glucose 162 H 170 H Hospitalist ROS - Medication Medications: Active Medications Generic Name Dose Route Start Last Admin Trade Name Freq PRN Reason Stop Dose Admin Acetaminophen 650 mg 03/10/19 17:39 03/12/19 19:55 Tylenol PO 650 mg Q4H PRN Administration Headache/Fever/Mild Pain (1-3) Albuterol/Ipratropium 3 ml 03/11/19 10:20 03/13/19 02:29 Duoneb NEB 3 ml [id number] PRN Administration SOB &/or Wheezing Apixaban 5 mg 03/12/19 09:00 03/12/19 19:54 Eliquis PO 5 mg BID SHIRIN Administration Aspirin 81 mg 03/12/19 09:00 03/12/19 10:40 Aspirin Chewable PO 81 mg DAILY SHIRIN Administration Diltiazem HCl 120 mg 03/12/19 09:00 03/12/19 10:39 Cardizem Cd PO 120 mg DAILY SHIRIN Administration Famotidine 20 mg 03/10/19 21:00 03/12/19 19:54 Pepcid SLOW IVP 20 mg Q12HR SHIRIN Administration Ferrous Sulfate 325 mg 03/11/19 21:00 03/12/19 19:54 Feosol PO 325 mg BID SHIRIN Administration Furosemide 20 mg 03/12/19 09:00 03/12/19 10:39 Lasix PO 20 mg DAILY SHIRIN Administration Diltiazem HCl 125 mg/ 125 mls @ 5 mls/hr 03/12/19 18:00 03/12/19 18:23 Miscellaneous Medication 1 IVPB 125 mls each/ Sodium Chloride INF SHIRIN Administration Protocol As Directed Metformin HCl 1,000 mg 03/11/19 17:00 03/12/19 16:06 Glucophage PO 1,000 mg BID-WM SHIRIN Administration Pramipexole Dihydrochloride 0.5 mg 03/12/19 09:00 03/12/19 10:38 Mirapex PO 0.5 mg DAILY SHIRIN Administration Pyridostigmine [place] 60 mg 03/11/19 15:00 03/12/19 19:55 Mestinon PO 60 mg TID SHIRIN Administration Trospium 20 mg 03/11/19 21:00 03/12/19 19:54 Trospium PO 20 mg BID SHIRIN Administration Venlafaxine HCl 75 mg 03/12/19 09:00 03/12/19 10:40 Effexor Xr PO 75 mg DAILY SHIRIN Administration - Exam General - other findings: in distress Eye: PERRL, anicteric sclera ENT: normocephalic atraumatic, no oropharyngeal lesions, moist mucosa Neck: supple, symmetric, no JVD, no thyromegaly, no lymphadenopathy, no carotid bruit Heart - other findings: tachycardic, regular Respiratory - other findings: diminished breath sound especially on L, crackles Gastrointestinal: soft, non-tender, non-distended, normal bowel sounds, no palpable masses, no hepatomegaly, no splenomegaly, no bruit Extremities - other findings: contractures bilaterally, no cyanosis Skin - other findings: lesions on legs bilaterally Neurological - other findings: chronically nonverbal, follows commands Musculoskeletal: diffuse muscle atrophy Psychiatric - other findings: unable to evaluate Hosp A/P - Plan # acute hypoxic respiratory failure - patient required BIPAP to sustain life, discussed with cardiology Dr Last and I bleieve this to be flash pulmonary edema caused by atrial flutter causing decompensation, patient moved to CCU after rapid response called, CXR reviewed and appears congestive in nature, will order lasix 40mg IV once and discuss with primary physician in the AM, also increased diltiazem to 10/hr and gave a bolus with some improvement, ABG indicated patient oxygenating well after BIPAP - lasix ordered as above - continue diltiazem at increased dose - appreciate cardiology assistance - follow up final CXR read - no CT pe protocol was ordered as other explination was more compelling and patient not stable enough yet - she has been transferred to CCU - discussed case with and answered questions to best of my abiltities - patient requiring emergent intervention and code green, was on BIPAP to sustain life, one or more organ systems in failure. 70 minutes critical care time # elevated lactic acid - due to hypoxia in 70s before intervention, suspect will improve but need to recheck in 2-3 hours
--- NOTE | 2019-03-13 06:29 | RAD ---
CHEST ONE VIEW: INDICATIONS: Shortness of breath. Desaturation. COMPARISON: Prior exam dated 03/10/2016. FINDINGS: There is worsening pulmonary vascular congestion, cardiomegaly and perihilar air space opacity. There are worsening pleural effusions. No definite pneumothorax is evident. IMPRESSION: Findings consistent with moderate congestive heart failure. POS: BH
[2019-03-13] MEDS: HumaLOG 300 UNITS/3 ML VIAL SC PRN (06:43)
[2019-03-13] MEDS: Pyridostigmine Bromide IR 60 MG TAB PO SCH ×3 (09:38→23:09)
[2019-03-13] MEDS: Famotidine/PF 20 mg/2ml Vial SLOW IVP SCH ×2 (09:38→22:35)
[2019-03-13] MEDS: metFORMIN 500 MG TAB PO SCH ×2 (09:38→16:48)
[2019-03-13] MEDS: Apixaban 5 MG TAB PO SCH ×2 (09:38→22:36)
[2019-03-13] MEDS: Pramipexole Di-HCl 0.25 MG TAB PO SCH (09:38)
[2019-03-13] MEDS: Aspirin Chewable 81 MG TAB PO SCH (09:39)
[2019-03-13] MEDS: Ferrous Sulfate 325 MG TAB PO SCH ×2 (09:39→22:36)
[2019-03-13] MEDS: Furosemide 20 MG TAB PO SCH (09:39)
--- NOTE | 2019-03-13 09:41 | CON ---
DATE OF CONSULTATION: 03/13/2019 REASON FOR CONSULTATION: Acute respiratory failure related to pulmonary edema. This encompassed 70 minutes of time, of that time, greater than 50% was spent with the patient and/or the patient's unit in the hospital. HISTORY OF PRESENT ILLNESS: The patient is a 68-year-old female, who was admitted to this facility by the hospitalist group on 03/10 with increasing shortness of breath. She was initially found to be tachycardic. She was seen by Dr. Vivas, found to be in atrial flutter and atrial fibrillation. She was started on Multaq. Last night, she became tachycardic again, went into overt heart failure with pulmonary edema, was transferred to the CCU and placed on noninvasive ventilation. PAST MEDICAL HISTORY: 1. 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 2. Diabetes mellitus. 3. Congestive heart failure. 4. Chronic suprapubic catheter. PAST SURGICAL HISTORY: Hysterectomy. MEDICATIONS: Prior to admission; 1. Furosemide. 2. Hydrochlorothiazide. 3. Aspirin. 4. Plavix. 5. Metformin. 6. Actos. 7. Multivitamin. 8. Iron. 9. Naprosyn. SOCIAL HISTORY: Nonsmoker. Does not consume alcohol. ALLERGIES: NONE. FAMILY MEDICAL HISTORY: Unremarkable. REVIEW OF SYSTEMS: Difficult to obtain secondary to the patient's dysarthria. PHYSICAL EXAMINATION: VITAL SIGNS: Temperature 98.2, pulse 121, blood pressure 124/83, and O2 saturation 95% on nasal cannula. She is currently off the BiPAP. She has a diltiazem drip running at 5 mg/hour. The patient is 5 feet and 4 inches, weighs 237 pounds. GENERAL: She appears disheveled. HEENT: Unremarkable. NECK: No JVD. LUNGS: She uses abdominal accessory muscles to breathe. She has crackles in both bases. CARDIAC: S1 and S2. Irregularly irregular and tachycardic. ABDOMEN: Soft, obese, nontender, and nondistended. EXTREMITIES: No clubbing, cyanosis, or edema. LABORATORY DATA: Sodium 136, potassium 4.4, chloride 91, CO2 of 21, BUN 17, creatinine 1.0, and glucose 237. Lactate was 5.4. Blood gas; pH of 7.34, pCO2 of 47, pO2 of 195, that was obtained on BiPAP. White blood cell count 12.9, hematocrit 46.7, and platelet count 303. IMAGING DATA: Her chest x-ray demonstrates evidence of congestive heart failure with bilateral pulmonary infiltrates. ASSESSMENT: 1. Pulmonary edema secondary to high-output heart failure. 2. Acute respiratory failure requiring noninvasive mechanical ventilation. 3. 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 It does not appear that she has chronic hypercapnic respiratory failure based on the appearance of her bicarbonate level on her chemistry. RECOMMENDATION: Dorothea as you are doing. Once she is able to be maintained off BiPAP comfortably, then she can be transferred back to the floor. Job ID: [id number]
[2019-03-13] MEDS: Trospium 20 MG TAB PO SCH ×2 (10:53→22:36)
[2019-03-13] MEDS: Venlafaxine HCl XR 75 MG CAP PO SCH (10:53)
[2019-03-13] MEDS: Diltiazem HCl 125 MG, Admixture Fee 1 EACH in Sodium Chloride 0.9% 100 ML IVPB SCH (10:56)
--- NOTE | 2019-03-13 14:19 | PDOC.CPN ---
- Subjective Date: 03/13/19 Time: 14:17 Interval history: She had to be transferred to the ICU overnight as she became tachycardic and tachypneic. She is doing much better now after diuresis. - Review of Systems ROS unobtainable: due to mental status - Objective Allergies/Adverse Reactions: Allergies Allergy/AdvReac Type Severity Reaction Status Date / Time No Known Allergies Allergy Verified 03/10/19 19:19 Visit Medications: Current Medications Acetaminophen (Tylenol) 650 mg PO Q4H PRN PRN Reason: Headache/Fever/Mild Pain (1-3) Last Admin: 03/12/19 19:55 Dose: 650 mg Acetaminophen (Tylenol) 650 mg VT Q4H PRN PRN Reason: Headache/Fever/Mild Pain (1-3) Albuterol/Ipratropium (Duoneb) 3 ml NEB [id number] PRN PRN Reason: SOB &/or Wheezing Last Admin: 03/13/19 02:29 Dose: 3 ml Apixaban (Eliquis) 5 mg PO BID [facility] Last Admin: 03/13/19 09:38 Dose: 5 mg Aspirin (Aspirin Chewable) 81 mg PO DAILY [facility] Last Admin: 03/13/19 09:39 Dose: 81 mg Dextrose/Water (Dextrose 50%) 25 gm SLOW IVP PRN PRN PRN Reason: Hypoglycemia Diltiazem HCl (Cardizem Cd) 120 mg PO DAILY [facility] Last Admin: 03/13/19 09:39 Dose: 120 mg Famotidine (Pepcid) 20 mg SLOW IVP Q12HR [facility] Last Admin: 03/13/19 09:38 Dose: 20 mg Ferrous Sulfate (Feosol) 325 mg PO BID [facility] Last Admin: 03/13/19 09:39 Dose: 325 mg Furosemide (Lasix) 20 mg PO DAILY [facility] Last Admin: 03/13/19 09:39 Dose: 20 mg Glucagon (Glucagon) 1 mg IM PRN PRN PRN Reason: Hypoglycemia Dextrose/Water (D5w) 1,000 mls @ 0 mls/hr IV .Q0M PRN PRN Reason: Hypoglycemia Diltiazem HCl 125 mg/Miscellaneous Medication 1 each/ Sodium Chloride 125 mls @ 5 mls/hr IVPB INF SHIRIN; Protocol Last Admin: 03/13/19 10:56 Dose: 125 mls Insulin Human Lispro (Humalog) 0 units SC .MILD SLIDING SCALE PRN PRN Reason: Mild Correctional Scale Last Admin: 03/13/19 06:43 Dose: 3 unit Insulin Human Lispro (Humalog) 0 units SC .BEDTIME SLIDING SC PRN PRN Reason: Bedtime Correctional Scale Metformin HCl (Glucophage) 1,000 mg PO BID-[facility] Last Admin: 03/13/19 09:38 Dose: 1,000 mg Miscellaneous Medication (Pharmacy To Dose) 0 each PO PRN PRN PRN Reason: PHARMACY TO DOSE Ondansetron HCl (Zofran Odt) 4 mg PO Q6H PRN PRN Reason: Nausea/Vomiting Ondansetron HCl (Zofran) 4 mg IVP Q6H PRN PRN Reason: Nausea/Vomiting Pramipexole Dihydrochloride (Mirapex) 0.5 mg PO DAILY [facility] Last Admin: 03/13/19 09:38 Dose: 0.5 mg Pyridostigmine [place] (Mestinon) 60 mg PO TID [facility] Last Admin: 03/13/19 09:38 Dose: 60 mg Sodium Chloride (Flush - Normal Saline) 10 ml IVF Q12HR PRN PRN Reason: Saline Flush Sodium Chloride (Flush - Normal Saline) 10 ml IVF PRN PRN PRN Reason: Saline Flush Trospium (Trospium) 20 mg PO BID [facility] Last Admin: 03/13/19 10:53 Dose: 20 mg Venlafaxine HCl (Effexor Xr) 75 mg PO DAILY [facility] Last Admin: 03/13/19 10:53 Dose: 75 mg Vital Signs & Weight: Vital Signs Temp Pulse Resp BP BP Pulse Ox 03/13/19 12:11 97.8 F 92 16 131/84 93 L 03/13/19 09:39 106 H 107/62 03/13/19 08:00 98 03/13/19 07:00 98.1 F 03/13/19 04:00 98.2 F 03/13/19 02:45 98.1 F 100 03/13/19 02:32 170 H 20 03/13/19 02:29 170 H 28 H 80 L Admit Weight 237 lb 4.8 oz Weight 237 lb 4.8 oz - Physical Exam General: no apparent distress HEENT: mucus membranes moist, normocephaly Neck: supple neck, midline trachea Cardiac: regular rate and rhythm, no murmur Lungs: normal breath sounds Neuro: weakness Abdomen: active bowel sounds, soft, non-tender Skin: clear Musculoskeletal: no pain - Labs Result Diagrams: 03/13/19 02:20 03/13/19 02:20 Troponin/CKMB Troponin I 0.020 ng/mL (< 0.028) 03/10/19 14:17 - Telemetry Sinus rhythms and dysrhythmias: sinus tachycardia - Assessment/Plan Assessment/Plan: 1. Paroxysmal afib. 2. Morbid obesity 3. ALS. PLAN: - May transfer to telemetry floor. - Continue other meds. - Currently in sinus. - Continue diltiazem PO, will stop drip.
--- NOTE | 2019-03-13 17:59 | PDOC.HOSPP ---
- Subjective Encounter Date: 03/13/19 Encounter Time: 17:50 Subjective: f/u for A-fib RVR with flash pulm edema last pm requiring short-term BiPAP and IV Lasix with Cardizem gtt. Stabilized and was transferred back to telemetry. No new complaints. - Objective Vital Signs & Weight: Vital Signs (12 hours) Temp Pulse Resp BP BP Pulse Ox 03/13/19 15:19 97.9 F 105 H 16 83/52 L 93 L 03/13/19 12:11 97.8 F 92 16 131/84 93 L 03/13/19 09:39 106 H 107/62 03/13/19 08:00 98 03/13/19 07:00 98.1 F Weight Admit Weight 237 lb 4.8 oz Weight 237 lb 4.8 oz Most Recent Monitor Data Heart Rate from ECG 124 NIBP 114/69 NIBP BP-Mean 84 Respiration from ECG 19 SpO2 94 I&O: 03/12/19 03/13/19 03/14/19 06:59 06:59 06:59 Intake Total 1475 753.7 790 Output Total 1625 695 180 Balance -150 58.7 610 Result Diagrams: 03/13/19 02:20 03/13/19 02:20 Additional Labs: Accuchecks 03/13/19 03/13/19 03/13/19 11:56 06:28 02:06 POC Glucose 123 H 219 H 138 H 03/12/19 03/12/19 20:17 05:32 POC Glucose 192 H 170 H Microbiology 03/10/19 14:46 Nasal swab Influenza Types A,B Direct EIA - Final 03/10/19 14:08 Urine Suprapubic catheter Urine Culture - Final Enterococcus faecalis Staphylococcus aureus 03/10/19 15:04 Venous blood - Left Hand Blood Culture - Preliminary NO GROWTH AT 48 HOURS 03/10/19 14:16 Venous blood - Left Hand Blood Culture - Preliminary NO GROWTH AT 48 HOURS Laboratory Tests 03/10/19 03/10/19 03/11/19 14:16 14:17 04:06 WBC 6.6 Lactic Acid 2.0 B-Natriuretic Peptide 421.8 H 03/12/19 03/13/19 05:20 02:20 WBC 7.2 Lactic Acid 5.4 H* B-Natriuretic Peptide Radiology Reviewed by me: Yes (PCXR - mod pulm edema) EKG Reviewed by me: Yes (Tele - SR with PAC's) Hospitalist ROS - Medication Medications: Active Medications Generic Name Dose Route Start Last Admin Trade Name Freq PRN Reason Stop Dose Admin Acetaminophen 650 mg 03/10/19 17:39 03/12/19 19:55 Tylenol PO 650 mg Q4H PRN Administration Headache/Fever/Mild Pain (1-3) Albuterol/Ipratropium 3 ml 03/11/19 10:20 03/13/19 02:29 Duoneb NEB 3 ml [id number] PRN Administration SOB &/or Wheezing Apixaban 5 mg 03/12/19 09:00 03/13/19 09:38 Eliquis PO 5 mg BID SHIRIN Administration Aspirin 81 mg 03/12/19 09:00 03/13/19 09:39 Aspirin Chewable PO 81 mg DAILY SHIRIN Administration Diltiazem HCl 120 mg 03/12/19 09:00 03/13/19 09:39 Cardizem Cd PO 120 mg DAILY SHIRIN Administration Famotidine 20 mg 03/10/19 21:00 03/13/19 09:38 Pepcid SLOW IVP 20 mg Q12HR SHIRIN Administration Ferrous Sulfate 325 mg 03/11/19 21:00 03/13/19 09:39 Feosol PO 325 mg BID SHIRIN Administration Furosemide 20 mg 03/12/19 09:00 03/13/19 09:39 Lasix PO 20 mg DAILY SHIRIN Administration Insulin Human Lispro 0 units 03/10/19 17:44 03/13/19 06:43 Humalog SC 3 unit .MILD SLIDING SCALE PRN Administration Mild Correctional Scale Metformin HCl 1,000 mg 03/11/19 17:00 03/13/19 16:48 Glucophage PO 1,000 mg BID-WM SHIRIN Administration Pramipexole Dihydrochloride 0.5 mg 03/12/19 09:00 03/13/19 09:38 Mirapex PO 0.5 mg DAILY SHIRIN Administration Pyridostigmine [place] 60 mg 03/11/19 15:00 03/13/19 16:48 Mestinon PO 60 mg TID SHIRIN Administration Trospium 20 mg 03/11/19 21:00 03/13/19 10:53 Trospium PO 20 mg BID SHIRIN Administration Venlafaxine HCl 75 mg 03/12/19 09:00 03/13/19 10:53 Effexor Xr PO 75 mg DAILY SHIRIN Administration - Exam General Appearance: NAD, awake alert Eye: PERRL, anicteric sclera ENT: normocephalic atraumatic, no oropharyngeal lesions Neck: supple, symmetric, no JVD, no thyromegaly, no lymphadenopathy Heart: RRR, no gallops, no rubs, normal peripheral pulses Respiratory: no wheezes Respiratory - other findings: diminished in bases, few crackles Gastrointestinal: soft, non-tender, non-distended, normal bowel sounds Gastrointestinal - other findings: indwelling SPT Neurological: no new deficit Neurological - other findings: chronic non-verbal Musculoskeletal: diffuse muscle atrophy Hosp A/P (1) Atrial fibrillation with RVR Code(s): I48.91 - UNSPECIFIED ATRIAL FIBRILLATION Status: Acute Plan: Resolved, SR with PAC's, continue rate-control strategy, Cardizem po (2) Flash pulmonary edema Code(s): J81.0 - ACUTE PULMONARY EDEMA Status: Acute Plan: Resolved, continue Lasix po (3) Acute respiratory failure with hypoxia Code(s): J96.01 - ACUTE RESPIRATORY FAILURE WITH HYPOXIA Status: Acute Plan: Transient, improved after diuresing with Lasix, O2 prn (4) UTI (urinary tract infection) due to urinary indwelling catheter Code(s): T83.511A - I/I REACT D/T INDWELLING URETHRAL CATHETER, INIT; N39.0 - URINARY TRACT INFECTION, SITE NOT SPECIFIED Status: Acute Plan: Enterococcus/Staph spp, start Levaquin 500mg IV daily (5) ALS (amyotrophic lateral sclerosis) Code(s): G12.21 - AMYOTROPHIC LATERAL SCLEROSIS Status: Chronic Plan: Supportive mgmt, turning protocol - Plan continue antibiotics, dialysis social worker, respiratory therapy Stable currently Add Levaquin 500mg IV daily Continue Cardizem Continue Lasix Continue Eliquis AM lab: H/H
--- NOTE | 2019-03-13 20:49 | RAD ---
XR Chest 1 View Portable HISTORY: Shortness of breath. COMPARISON: Exam done earlier today. FINDINGS: Heart size is enlarged pulmonary vessels are engorged with increased parahilar lung marking s fairly similar to the prior exam increased density in the bases suggest effusions. Given the differences in technique no definitive interval change. IMPRESSION: Cardiomegaly with pulmonary edema changes.
[2019-03-13] MEDS ORDERED: Magnesium 2 GM/50 ML 2 GM in Premix Bag 1 BAG IVPB SCH (22:45)
[2019-03-14] MEDS: Acetaminophen 325 MG TAB PO PRN (04:30)
[2019-03-14] MEDS: Ferrous Sulfate 325 MG TAB PO SCH ×2 (08:39→21:30)
[2019-03-14] MEDS: Pyridostigmine Bromide IR 60 MG TAB PO SCH ×3 (08:39→21:32)
[2019-03-14] MEDS: Pramipexole Di-HCl 0.25 MG TAB PO SCH (08:39)
[2019-03-14] MEDS: Apixaban 5 MG TAB PO SCH ×2 (08:39→21:29)
[2019-03-14] MEDS: Furosemide 20 MG TAB PO SCH (08:39)
[2019-03-14] MEDS: metFORMIN 500 MG TAB PO SCH ×2 (08:39→17:25)
[2019-03-14] MEDS: Aspirin Chewable 81 MG TAB PO SCH (08:39)
[2019-03-14] MEDS: Famotidine/PF 20 mg/2ml Vial SLOW IVP SCH ×2 (08:40→21:30)
[2019-03-14] MEDS: Trospium 20 MG TAB PO SCH ×2 (08:40→21:33)
[2019-03-14] MEDS: Venlafaxine HCl XR 75 MG CAP PO SCH (08:40)
[2019-03-14] MEDS: HumaLOG 300 UNITS/3 ML VIAL SC PRN (11:12)
--- NOTE | 2019-03-14 12:22 | PRG ---
DATE OF SERVICE: 03/14/2019 SUBJECTIVE: The patient is doing fairly well. I have a hard time understanding what she is saying because she is very dysarthric. OBJECTIVE: VITAL SIGNS: On exam, her temperature is 98.3, pulse 89, respirations 20, and O2 saturation 97% on 3 L. HEENT: Unremarkable. NECK: No JVD. CHEST: Fairly clear anteriorly. CARDIAC: S1 and S2. Regular. ABDOMEN: Obese, soft, and nontender. EXTREMITIES: No critical edema present. LABORATORY DATA: No labs were done today. ASSESSMENT: Stable pulmonary status. PLAN: She is apparently following up with an ALS Center in [place]. I would defer to them as to further workup for possible need for BiPAP in the future. The main issue for this hospitalization is pulmonary edema secondary to high-output heart failure and that appears to be better. Job ID: [id number]
--- NOTE | 2019-03-14 14:12 | PDOC.HOSPP ---
- Subjective Encounter Date: 03/14/19 Encounter Time: 14:10 Subjective: f/u for flash pulm edema in context of A-fib RVR on transient BiPAP. Overall doing better on current Lasix 20mg daily. States feeling better overall. - Objective Vital Signs & Weight: Vital Signs (12 hours) Temp Pulse Resp BP Pulse Ox 03/14/19 11:08 98.3 F 101 H 20 136/68 98 03/14/19 07:26 98.3 F 89 20 136/71 97 03/14/19 03:37 97 03/14/19 03:09 98.3 F 98 20 115/68 98 Weight Admit Weight 237 lb 4.8 oz Weight 237 lb 4.8 oz Most Recent Monitor Data Heart Rate from ECG 124 NIBP 114/69 NIBP BP-Mean 84 Respiration from ECG 19 SpO2 94 I&O: 03/13/19 03/14/19 03/15/19 06:59 06:59 06:59 Intake Total 753.7 1030 120 Output Total 695 280 125 Balance 58.7 750 -5 Result Diagrams: 03/13/19 02:20 03/13/19 02:20 Additional Labs: Accuchecks 03/14/19 03/14/19 03/13/19 10:40 06:01 21:17 POC Glucose 171 H 145 H 138 H 03/13/19 17:52 POC Glucose 140 H Microbiology 03/10/19 14:46 Nasal swab Influenza Types A,B Direct EIA - Final 03/10/19 14:08 Urine Suprapubic catheter Urine Culture - Final Enterococcus faecalis Staphylococcus aureus 03/10/19 15:04 Venous blood - Left Hand Blood Culture - Preliminary NO GROWTH AT 48 HOURS 03/10/19 14:16 Venous blood - Left Hand Blood Culture - Preliminary NO GROWTH AT 48 HOURS Laboratory Tests 03/10/19 03/10/19 03/11/19 14:16 14:17 04:06 WBC 6.6 Lactic Acid 2.0 B-Natriuretic Peptide 421.8 H 03/12/19 03/13/19 05:20 02:20 WBC 7.2 Lactic Acid 5.4 H* B-Natriuretic Peptide EKG Reviewed by me: Yes ([facility], [facility]) Hospitalist ROS - Medication Medications: Active Medications Generic Name Dose Route Start Last Admin Trade Name Freq PRN Reason Stop Dose Admin Acetaminophen 650 mg 03/10/19 17:39 03/14/19 04:30 Tylenol PO 650 mg Q4H PRN Administration Headache/Fever/Mild Pain (1-3) Albuterol/Ipratropium 3 ml 03/11/19 10:20 03/13/19 21:01 Duoneb NEB 3 ml [id number] PRN Administration SOB &/or Wheezing Apixaban 5 mg 03/12/19 09:00 03/14/19 08:39 Eliquis PO 5 mg BID SHIRIN Administration Aspirin 81 mg 03/12/19 09:00 03/14/19 08:39 Aspirin Chewable PO 81 mg DAILY SHIRIN Administration Diltiazem HCl 120 mg 03/12/19 09:00 03/14/19 08:39 Cardizem Cd PO 120 mg DAILY SHIRIN Administration Famotidine 20 mg 03/10/19 21:00 03/14/19 08:40 Pepcid SLOW IVP 20 mg Q12HR SHIRIN Administration Ferrous Sulfate 325 mg 03/11/19 21:00 03/14/19 08:39 Feosol PO 325 mg BID SHIRIN Administration Furosemide 20 mg 03/12/19 09:00 03/14/19 08:39 Lasix PO 20 mg DAILY SHIRIN Administration Insulin Human Lispro 0 units 03/10/19 17:44 03/14/19 11:12 Humalog SC 2 unit .MILD SLIDING SCALE PRN Administration Mild Correctional Scale Metformin HCl 1,000 mg 03/11/19 17:00 03/14/19 08:39 Glucophage PO 1,000 mg BID-WM SHIRIN Administration Pramipexole Dihydrochloride 0.5 mg 03/12/19 09:00 03/14/19 08:39 Mirapex PO 0.5 mg DAILY SHIRIN Administration Pyridostigmine [place] 60 mg 03/11/19 15:00 03/14/19 08:39 Mestinon PO 60 mg TID SHIRIN Administration Sodium Chloride 10 ml 03/10/19 17:39 03/14/19 08:40 Flush - Normal Saline IVF 10 ml Q12HR PRN Administration Saline Flush Trospium 20 mg 03/11/19 21:00 03/14/19 08:40 Trospium PO 20 mg BID SHIRIN Administration Venlafaxine HCl 75 mg 03/12/19 09:00 03/14/19 08:40 Effexor Xr PO 75 mg DAILY SHIRIN Administration - Exam General Appearance: NAD, awake alert Eye: PERRL, anicteric sclera ENT: normocephalic atraumatic, no oropharyngeal lesions Neck: supple, symmetric, no JVD, no thyromegaly Heart: RRR, no gallops, no rubs, normal peripheral pulses Respiratory: no wheezes, no ronchi Respiratory - other findings: diminished in bases Gastrointestinal: soft, non-tender, non-distended, normal bowel sounds, no palpable masses Gastrointestinal - other findings: obese Extremities: no cyanosis, 1+ LE edema Skin: normal turgor, no lesions Neurological: no new deficit Musculoskeletal: generalized weakness Psychiatric: normal affect, A&O x 3 Hosp A/P (1) Atrial fibrillation with RVR Code(s): I48.91 - UNSPECIFIED ATRIAL FIBRILLATION Status: Acute Plan: Intermittent MAT noted, continue Cardizem/Eliquis, may need EP evaluation (2) Flash pulmonary edema Code(s): J81.0 - ACUTE PULMONARY EDEMA Status: Acute Plan: Continue Lasix 20mg po daily (3) Acute respiratory failure with hypoxia Code(s): J96.01 - ACUTE RESPIRATORY FAILURE WITH HYPOXIA Status: Acute Plan: Consider nocturnal BiPAP (4) UTI (urinary tract infection) due to urinary indwelling catheter Code(s): T83.511A - I/I REACT D/T INDWELLING URETHRAL CATHETER, INIT; N39.0 - URINARY TRACT INFECTION, SITE NOT SPECIFIED Status: Acute Plan: Enterococcus/Staph spp on Ucx, continue Levaquin (5) ALS (amyotrophic lateral sclerosis) Code(s): G12.21 - AMYOTROPHIC LATERAL SCLEROSIS Status: Chronic - Plan continue antibiotics, social worker delinquency prevention, respiratory therapy, DVT proph w/SCDs Stable currently Add Levaquin 500mg IV daily Continue Cardizem 120mg po daily Continue Lasix 20mg po daily Continue Eliquis 5mg po BID AM lab: H/H Likely home with continuation of HH services
--- NOTE | 2019-03-14 19:20 | PDOC.CPN ---
- Subjective Date: 03/14/19 Time: 19:19 Interval history: No new issues. - Review of Systems General: denies: fever/chills, weight/appetite/sleep changes, night sweats, fatigue Respiratory: denies: cough, congestion, shortness of breath, exercise intolerance Cardiovascular: denies: chest pain, palpitation, edema, paroxysmal nocturnal dyspnea, orthopnea Gastrointestinal: denies: nausea, vomiting, diarrhea, constipation, abd pain, GI bleeding Musculoskeletal: denies: pain, tenderness, stiffness, swelling, arthritis/ arthralgias Neurological: reports: weakness. denies: numbness, syncope, seizure - Objective Allergies/Adverse Reactions: Allergies Allergy/AdvReac Type Severity Reaction Status Date / Time No Known Allergies Allergy Verified 03/10/19 19:19 Visit Medications: Current Medications Acetaminophen (Tylenol) 650 mg PO Q4H PRN PRN Reason: Headache/Fever/Mild Pain (1-3) Last Admin: 03/14/19 04:30 Dose: 650 mg Acetaminophen (Tylenol) 650 mg RI Q4H PRN PRN Reason: Headache/Fever/Mild Pain (1-3) Albuterol/Ipratropium (Duoneb) 3 ml NEB [id number] PRN PRN Reason: SOB &/or Wheezing Last Admin: 03/13/19 21:01 Dose: 3 ml Apixaban (Eliquis) 5 mg PO BID [facility] Last Admin: 03/14/19 08:39 Dose: 5 mg Aspirin (Aspirin Chewable) 81 mg PO DAILY [facility] Last Admin: 03/14/19 08:39 Dose: 81 mg Dextrose/Water (Dextrose 50%) 25 gm SLOW IVP PRN PRN PRN Reason: Hypoglycemia Diltiazem HCl (Cardizem Cd) 120 mg PO DAILY [facility] Last Admin: 03/14/19 08:39 Dose: 120 mg Famotidine (Pepcid) 20 mg SLOW IVP Q12HR [facility] Last Admin: 03/14/19 08:40 Dose: 20 mg Ferrous Sulfate (Feosol) 325 mg PO BID [facility] Last Admin: 03/14/19 08:39 Dose: 325 mg Furosemide (Lasix) 20 mg PO DAILY [facility] Last Admin: 03/14/19 08:39 Dose: 20 mg Glucagon (Glucagon) 1 mg IM PRN PRN PRN Reason: Hypoglycemia Dextrose/Water (D5w) 1,000 mls @ 0 mls/hr IV .Q0M PRN PRN Reason: Hypoglycemia Levofloxacin 500 mg/ Device 100 mls @ 100 mls/hr IVPB 2300 [facility] Insulin Human Lispro (Humalog) 0 units SC .MILD SLIDING SCALE PRN PRN Reason: Mild Correctional Scale Last Admin: 03/14/19 11:12 Dose: 2 unit Insulin Human Lispro (Humalog) 0 units SC .BEDTIME SLIDING SC PRN PRN Reason: Bedtime Correctional Scale Metformin HCl (Glucophage) 1,000 mg PO BID[facility] Last Admin: 03/14/19 17:25 Dose: 1,000 mg Miscellaneous Medication (Pharmacy To Dose) 0 each PO PRN PRN PRN Reason: PHARMACY TO DOSE Nystatin (Mycostatin Powder) 0 gm TOP BID [facility] Ondansetron HCl (Zofran Odt) 4 mg PO Q6H PRN PRN Reason: Nausea/Vomiting Ondansetron HCl (Zofran) 4 mg IVP Q6H PRN PRN Reason: Nausea/Vomiting Pramipexole Dihydrochloride (Mirapex) 0.5 mg PO DAILY [facility] Last Admin: 03/14/19 08:39 Dose: 0.5 mg Pyridostigmine [place] (Mestinon) 60 mg PO TID [facility] Last Admin: 03/14/19 15:11 Dose: 60 mg Sodium Chloride (Flush - Normal Saline) 10 ml IVF Q12HR PRN PRN Reason: Saline Flush Last Admin: 03/14/19 08:40 Dose: 10 ml Sodium Chloride (Flush - Normal Saline) 10 ml IVF PRN PRN PRN Reason: Saline Flush Trospium (Trospium) 20 mg PO BID [facility] Last Admin: 03/14/19 08:40 Dose: 20 mg Venlafaxine HCl (Effexor Xr) 75 mg PO DAILY [facility] Last Admin: 03/14/19 08:40 Dose: 75 mg Vital Signs & Weight: Vital Signs Temp Pulse Resp BP Pulse Ox 03/14/19 15:05 98.3 F 87 20 145/94 H 98 03/14/19 11:08 98.3 F 101 H 20 136/68 98 03/14/19 07:26 98.3 F 89 20 136/71 97 Admit Weight 237 lb 4.8 oz Weight 237 lb 4.8 oz - Physical Exam General: alert & oriented x3 HEENT: mucus membranes moist Neck: supple neck Cardiac: regular rate and rhythm Lungs: clear to auscultation Neuro: grossly intact Abdomen: active bowel sounds Skin: clear Musculoskeletal: no pain - Labs Result Diagrams: 03/13/19 02:20 03/13/19 02:20 Troponin/CKMB Troponin I 0.020 ng/mL (< 0.028) 03/10/19 14:17 - Telemetry Sinus rhythms and dysrhythmias: sinus rhythm - Assessment/Plan Assessment/Plan: 1. Paroxysmal afib, back in sinus. 2. Morbid obesity 3. ALS. PLAN: - Continue same meds. - Currently in sinus. - Continue diltiazem PO.
[2019-03-14 19:51] LABS: Hemoglobin 13.2 g/dL (12.0-16.0); Platelet Count 252 thou/uL (130-400)
[2019-03-14] MEDS: Nystatin Powder 15 GM BOT TOP SCH (21:32)
[2019-03-15] MEDS: metFORMIN 500 MG TAB PO SCH ×2 (08:50→16:06)
[2019-03-15] MEDS: Aspirin Chewable 81 MG TAB PO SCH (08:51)
[2019-03-15] MEDS: Famotidine/PF 20 mg/2ml Vial SLOW IVP SCH ×2 (08:52→21:27)
[2019-03-15] MEDS: Furosemide 20 MG TAB PO SCH (08:53)
[2019-03-15] MEDS: Ferrous Sulfate 325 MG TAB PO SCH ×2 (08:53→21:27)
[2019-03-15] MEDS: Nystatin Powder 15 GM BOT TOP SCH ×2 (08:53→21:29)
[2019-03-15] MEDS: Pramipexole Di-HCl 0.25 MG TAB PO SCH (08:54)
[2019-03-15] MEDS: Trospium 20 MG TAB PO SCH ×2 (08:54→21:30)
[2019-03-15] MEDS: Venlafaxine HCl XR 75 MG CAP PO SCH (08:54)
[2019-03-15] MEDS: Apixaban 5 MG TAB PO SCH ×2 (08:56→21:26)
[2019-03-15] MEDS: Pyridostigmine Bromide IR 60 MG TAB PO SCH ×3 (08:59→21:29)
--- NOTE | 2019-03-15 10:25 | PRG ---
DATE OF SERVICE: 03/15/2019 SUBJECTIVE: Ms. Rebolledo is doing okay. She continues to have intermittent episodes of atrial arrhythmias. OBJECTIVE: VITAL SIGNS: Blood pressure 118/90, pulse is in the 90s. LUNGS: Clear. CARDIAC: Normal S1, normal S2. ABDOMEN: Obese, nontender. EXTREMITIES: Mild edema. ASSESSMENT: 1. Recurrent atrial arrhythmias. 2. Morbid obesity. 3. Neurologic disorder as outlined in the chart. PLAN: We will consult Electrophysiology to see if they have any other ideas for dysrhythmic or antiarrhythmics. Job ID: [id number]
--- NOTE | 2019-03-15 14:34 | CON ---
DATE OF CONSULTATION: 03/15/2019 SUBJECTIVE: Ms. Rebolledo is here, who was admitted on the with signs of urosepsis and she was noted to have atrial fibrillation/atrial flutter on presentation. Cardizem IV was initiated. She has also been treated with IV antibiotics. She eventually received some doses of Multaq as well on the , but on the , it was stopped. While being monitored, she developed progressive dyspnea and florid pulmonary edema, eventually required BiPAP therapy. She was moved to the ICU as well. Eventually, Multaq was stopped and she remains in sinus rhythm, but has then developed episodes of atrial tachycardia, which still continues on and off with occasional rapid rates, typical to the presenting rhythm. She has mild symptoms at this point. She still has some lower extremity edema. She denies chest pains. No fever, chills, or cough anymore. No stroke-like symptoms. She denies PND or orthopnea. No fever, chills, or cough. No stroke-like symptoms. No neurological deficits. Rest of 12-point system, otherwise unremarkable. PAST MEDICAL HISTORY: As above includes also morbid obesity and amyotrophic lateral sclerosis like muscle weakness. She has right bundle branch block. She has medical history of CHF and suprapubic catheter. PAST SURGICAL HISTORY: Significant for hysterectomy and right ankle surgery. SOCIAL HISTORY: The patient is smokes E-cigarettes. Denies EtOH or drug abuse. FAMILY HISTORY: Not contributory. OBJECTIVE DATA: VITAL SIGNS: Blood pressure is 136/88, heart rate 98, and temperature 97.8 degrees Fahrenheit. GENERAL: Alert and oriented, morbidly obese woman, in no apparent distress. NECK: Supple. Jugular veins not distended. CHEST: Coarse without crackles. HEART: Sounds are regular on occasion, tachycardic. No murmur or gallop. ABDOMEN: Benign. Bowel sounds positive. EXTREMITIES: Lower extremity without edema, clubbing, or cyanosis. DATABASE: EKG is reviewed revealing typical isthmus dependent atrial flutter, initially with 2:1 AV conduction. Later, the patient develops sinus rhythm with frequent atrial tachycardia rounds, which are on occasion one-to-one on other occasions conducted with Wenckebach pattern to the ventricle. She does have right bundle branch block on the whole EKGs. LABORATORY DATA: White cell count is 12.9, hemoglobin 15.2, and platelet count is 303. Sodium on 03/13/2019 is 136, potassium is 4.4, BUN is 17, and creatinine is 1.05. ASSESSMENT AND PLAN: Ms. Rebolledo is a pleasant 68-year-old woman with no prior cardiac history, but history of obesity and neurological deficits, amyotrophic lateral sclerosis. She presents with atrial flutter with rapid rates initially, which eventually terminates. She had only a very short episode of Multaq therapy noted. Later, she developed episodes of atrial tachyarrhythmias. She also had a congestive heart failure and heart failure exacerbation. My plan would be at this point; 1. Regarding current atrial arrhythmias, the atrial flutter would be relatively simple to ablate. On the other hand, the atrial tachycardia may be a left atrial in origin. This lady for now is relatively poor candidate for a large ablation due to her ongoing infectious issues and amyotrophic lateral sclerosis. This likely makes her a difficult intubation candidate. Again, right-sided ablation though may be a potential possibility, if necessary in the future after medical stabilization. 2. Suppression of atrial arrhythmias could be considered. Alternatives would be amiodarone versus Tikosyn. Alternatively, rate control could be considered as well. 3. Anticoagulation likely to be considered. 4. Evaluate left ventricular function with a 2D echo. We will follow with you. Job ID: [id number]
--- NOTE | 2019-03-15 16:21 | PDOC.HOSPP ---
- Subjective Encounter Date: 03/15/19 Encounter Time: 16:10 Subjective: f/u for A-fib/flutter RVR and atrial tachyarrhythmias on Cardizem/Eliquis. Rate variable on tele monitor. - Objective Vital Signs & Weight: Vital Signs (12 hours) Temp Pulse Resp BP Pulse Ox 03/15/19 15:58 97.7 F 140 H 16 114/81 99 03/15/19 14:54 98 22 H 96 03/15/19 11:22 97.8 F 20 136/88 95 03/15/19 07:37 97.7 F 98 18 118/90 98 Weight Admit Weight 237 lb 4.8 oz Weight 237 lb 4.8 oz Most Recent Monitor Data Heart Rate from ECG 124 NIBP 114/69 NIBP BP-Mean 84 Respiration from ECG 19 SpO2 94 I&O: 03/14/19 03/15/19 03/16/19 06:59 06:59 06:59 Intake Total 1030 785 Output Total 280 605 Balance 750 180 Result Diagrams: 03/14/19 19:44 03/14/19 19:44 Additional Labs: Accuchecks 03/15/19 03/15/19 03/14/19 11:05 05:49 20:43 POC Glucose 188 H 143 H 131 H 03/14/19 17:28 POC Glucose 127 H Microbiology 03/10/19 14:46 Nasal swab Influenza Types A,B Direct EIA - Final 03/10/19 14:08 Urine Suprapubic catheter Urine Culture - Final Enterococcus faecalis Staphylococcus aureus 03/10/19 15:04 Venous blood - Left Hand Blood Culture - Preliminary NO GROWTH AT 48 HOURS 03/10/19 14:16 Venous blood - Left Hand Blood Culture - Preliminary NO GROWTH AT 48 HOURS Laboratory Tests 03/10/19 03/10/19 03/11/19 14:16 14:17 04:06 WBC 6.6 Lactic Acid 2.0 B-Natriuretic Peptide 421.8 H 03/12/19 03/13/19 05:20 02:20 WBC 7.2 Lactic Acid 5.4 H* B-Natriuretic Peptide EKG Reviewed by me: Yes (Tele - MAT/PAT in 110's) Hospitalist ROS - Medication Medications: Active Medications Generic Name Dose Route Start Last Admin Trade Name Freq PRN Reason Stop Dose Admin Acetaminophen 650 mg 03/10/19 17:39 09/29/19 04:30 Tylenol PO 650 mg Q4H PRN Administration Headache/Fever/Mild Pain (1-3) Albuterol/Ipratropium 3 ml 03/11/19 10:20 03/15/19 14:54 Duoneb NEB 3 ml [id number] PRN Administration SOB &/or Wheezing Apixaban 5 mg 03/12/19 09:00 03/15/19 08:56 Eliquis PO 5 mg BID SHIRIN Administration Aspirin 81 mg 03/12/19 09:00 03/15/19 08:51 Aspirin Chewable PO 81 mg DAILY SHIRIN Administration Diltiazem HCl 120 mg 03/12/19 09:00 03/15/19 08:51 Cardizem Cd PO 120 mg DAILY SHIRIN Administration Famotidine 20 mg 03/10/19 21:00 03/15/19 08:52 Pepcid SLOW IVP 20 mg Q12HR SHIRIN Administration Ferrous Sulfate 325 mg 03/11/19 21:00 03/15/19 08:53 Feosol PO 325 mg BID SHIRIN Administration Furosemide 20 mg 03/12/19 09:00 03/15/19 08:53 Lasix PO 20 mg DAILY SHIRIN Administration Levofloxacin 500 mg/ Device 100 mls @ 100 mls/hr 03/14/19 23:00 03/14/19 23: 03 IVPB 100 mls 2300 SHIRIN Administration Insulin Human Lispro 0 units 03/10/19 17:44 03/14/19 11:12 Humalog SC 2 unit .MILD SLIDING SCALE PRN Administration Mild Correctional Scale Metformin HCl 1,000 mg 03/11/19 17:00 03/15/19 16:06 Glucophage PO 1,000 mg BID-WM SHIRIN Administration Nystatin 0 gm 03/14/19 21:00 03/15/19 08:53 Mycostatin Powder TOP 1 applic BID SHIRIN Administration Pramipexole Dihydrochloride 0.5 mg 03/12/19 09:00 03/15/19 08:54 Mirapex PO 0.5 mg DAILY SHIRIN Administration Pyridostigmine [place] 60 mg 03/11/19 15:00 03/15/19 14:29 Mestinon PO 60 mg TID SHIRIN Administration Sodium Chloride 10 ml 03/10/19 17:39 03/14/19 08:40 Flush - Normal Saline IVF 10 ml Q12HR PRN Administration Saline Flush Trospium 20 mg 03/11/19 21:00 03/15/19 08:54 Trospium PO 20 mg BID SHIRIN Administration Venlafaxine HCl 75 mg 03/12/19 09:00 03/15/19 08:54 Effexor Xr PO 75 mg DAILY SHIRIN Administration - Exam General Appearance: NAD, awake alert Eye: PERRL, anicteric sclera ENT: normocephalic atraumatic, no oropharyngeal lesions Neck: supple, symmetric, no JVD, no thyromegaly Heart: no murmur, no gallops, no rubs, irregular Respiratory: CTAB, no wheezes, no rales, no ronchi Gastrointestinal: soft, non-tender, non-distended, normal bowel sounds, no palpable masses Extremities: no cyanosis, no clubbing, no edema Skin: normal turgor, no lesions Neurological - other findings: dysarthria Musculoskeletal: generalized weakness Psychiatric: A&O x 3 Hosp A/P (1) Atrial fibrillation with RVR Code(s): I48.91 - UNSPECIFIED ATRIAL FIBRILLATION Status: Acute Plan: Cardizem with variable rate, may need Amiodarone for better control, consider ablation (2) Flash pulmonary edema Code(s): J81.0 - ACUTE PULMONARY EDEMA Status: Acute Plan: Resolved (3) Acute respiratory failure with hypoxia Code(s): J96.01 - ACUTE RESPIRATORY FAILURE WITH HYPOXIA Status: Acute Plan: Continue supportive mgmt, O2 prn (4) UTI (urinary tract infection) due to urinary indwelling catheter Code(s): T83.511A - I/I REACT D/T INDWELLING URETHRAL CATHETER, INIT; N39.0 - URINARY TRACT INFECTION, SITE NOT SPECIFIED Status: Acute Plan: Continue Levaquin IV (5) ALS (amyotrophic lateral sclerosis) Code(s): G12.21 - AMYOTROPHIC LATERAL SCLEROSIS Status: Chronic Plan: PT for mobilization - Plan plan discussed w/ family, continue antibiotics, PT/OT, social media job titles, respiratory therapy, DVT proph w/SCDs Stable currently Levaquin 500mg IV daily Continue Cardizem 120mg po daily Continue Lasix 20mg po daily Continue Eliquis 5mg po BID 2D echo for EF/structural assessment AM lab: H/H Likely home with continuation of HH services
[2019-03-15] MEDS: Flecainide 50 MG TAB PO SCH (21:28)
[2019-03-16 01:06] LABS: Anion Gap 16 mmol/L (10-20); BUN (Urea Nitrogen) 13 mg/dL (9.8-20.1); Calc. Creatinine Clearance 114 mL/min (70-130); Calcium 8.9 mg/dL (7.8-10.44); Carbon Dioxide 26 mmol/L (23-31); Chloride 100 mmol/L (98-107); Estimated GFR-MDRD 71; Glucose 137 mg/dL (80-115); Magnesium 1.6 mg/dL (1.6-2.6); Sodium 138 mmol/L (136-145)
[2019-03-16 01:29] LABS: #Eosinphils 0.3 thou/uL (0.0-0.7); #Lymphocytes 0.9 thou/uL (1.20-3.40); #Monocytes 0.3 thou/uL (0.11-0.59); #Neutrophils 5.3 thou/uL (1.40-6.50); %Basophils 0.6 % (0.0-1.0); %Eosinophils 3.8 % (0.0-10.0); %Lymphocytes 13.2 % (21.0-51.0); %Monocytes 3.8 % (0.0-10.0); %Neutrophils 78.6 % (42.0-75.0); Mean Corpuscular HGB CONC 33.4 g/dL (32.0-36.0); Mean Corpuscular Hemoglobin 29.1 pg (27.0-31.0); Mean Corpuscular Volume 87.2 fL (78.0-98.0); Mean Platelet Volume 8.4 fL (7.4-10.4); Platelet Count 244 thou/uL (130-400); RBC Distribution Width 16.3 % (11.5-14.5); Red Blood Cell (RBC) Count 4.47 mill/uL (4.20-5.40); White Blood Cell (WBC) Count 6.8 thou/uL (4.8-10.8)
[2019-03-16] MEDS: Pramipexole Di-HCl 0.25 MG TAB PO SCH (08:17)
[2019-03-16] MEDS: Furosemide 20 MG TAB PO SCH (08:18)
[2019-03-16] MEDS: Famotidine/PF 20 mg/2ml Vial SLOW IVP SCH ×2 (08:18→21:19)
[2019-03-16] MEDS: metFORMIN 500 MG TAB PO SCH ×2 (08:18→16:28)
[2019-03-16] MEDS: Venlafaxine HCl XR 75 MG CAP PO SCH (08:18)
[2019-03-16] MEDS: Flecainide 50 MG TAB PO SCH (08:18)
[2019-03-16] MEDS: Ferrous Sulfate 325 MG TAB PO SCH ×2 (08:18→21:18)
[2019-03-16] MEDS: Trospium 20 MG TAB PO SCH ×2 (08:18→22:59)
[2019-03-16] MEDS: Apixaban 5 MG TAB PO SCH ×2 (08:18→21:18)
[2019-03-16] MEDS: Aspirin Chewable 81 MG TAB PO SCH (08:18)
[2019-03-16] MEDS: Nystatin Powder 15 GM BOT TOP SCH ×2 (08:22→21:19)
[2019-03-16] MEDS ORDERED: Propofol 1,000 MG/100 ML VIAL IV ONE (09:05)
[2019-03-16] MEDS ORDERED: CCU Electrolyte Replacement 1 EACH FS ONE (09:06)
--- NOTE | 2019-03-16 09:09 | PDOC.HOSPP ---
- Subjective Encounter Date: 03/16/19 Encounter Time: 08:50 Subjective: Nestor Curt called this am when pt was noted with resp distress, tachycardic with nursing noting increased dyspnea. Discussions with family regarding intubation occurred with confirmation to place on mech ventilation. Pt transferred to CCU for further care, mech ventilation and HR control measures. - Objective Vital Signs & Weight: Vital Signs (12 hours) Temp Pulse Resp BP Pulse Ox 03/16/19 08:18 125 H 03/16/19 07:58 125 H 18 92 L 03/16/19 07:27 98.6 F 157 H 18 144/98 H 93 L 03/16/19 04:00 97.3 F L 102 H 18 141/103 H 92 L 03/16/19 01:55 93 L Weight Admit Weight 237 lb 4.8 oz Weight 253 lb Most Recent Monitor Data Heart Rate from ECG 124 NIBP 114/69 NIBP BP-Mean 84 Respiration from ECG 19 SpO2 94 I&O: 03/15/19 03/16/19 03/17/19 06:59 06:59 06:59 Intake Total 785 Output Total 605 500 Balance 180 -500 Result Diagrams: 03/16/19 01:22 03/16/19 00:44 Additional Labs: Accuchecks 03/16/19 03/15/19 03/15/19 05:41 20:31 17:06 POC Glucose 154 H 144 H 135 H 03/15/19 11:05 POC Glucose 188 H Microbiology 03/10/19 14:46 Nasal swab Influenza Types A,B Direct EIA - Final 03/10/19 14:08 Urine Suprapubic catheter Urine Culture - Final Enterococcus faecalis Staphylococcus aureus 03/10/19 15:04 Venous blood - Left Hand Blood Culture - Preliminary NO GROWTH AT 48 HOURS 03/10/19 14:16 Venous blood - Left Hand Blood Culture - Preliminary NO GROWTH AT 48 HOURS Laboratory Tests 03/10/19 03/10/19 03/11/19 14:16 14:17 04:06 WBC 6.6 Lactic Acid 2.0 Magnesium B-Natriuretic Peptide 421.8 H 03/12/19 03/13/19 03/16/19 05:20 02:20 00:44 WBC 7.2 Lactic Acid 5.4 H* Magnesium 1.6 B-Natriuretic Peptide Radiology Reviewed by me: Yes (PCXR - pending) EKG Reviewed by me: Yes (Tele - Sinus tachycardia/? AF) Hospitalist ROS - Medication Medications: Active Medications Generic Name Dose Route Start Last Admin Trade Name Freq PRN Reason Stop Dose Admin Acetaminophen 650 mg 03/10/19 17:39 03/14/19 04:30 Tylenol PO 650 mg Q4H PRN Administration Headache/Fever/Mild Pain (1-3) Albuterol/Ipratropium 3 ml 03/11/19 10:20 03/16/19 07:58 Duoneb NEB 3 ml [id number] PRN Administration SOB &/or Wheezing Apixaban 5 mg 03/12/19 09:00 03/16/19 08:18 Eliquis PO 5 mg BID SHIRIN Administration Aspirin 81 mg 03/12/19 09:00 03/16/19 08:18 Aspirin Chewable PO 81 mg DAILY SHIRIN Administration Diltiazem HCl 120 mg 03/12/19 09:00 03/16/19 08:18 Cardizem Cd PO 120 mg DAILY SHIRIN Administration Famotidine 20 mg 03/10/19 21:00 03/16/19 08:18 Pepcid SLOW IVP 20 mg Q12HR SHIRIN Administration Ferrous Sulfate 325 mg 03/11/19 21:00 03/16/19 08:18 Feosol PO 325 mg BID SHIRIN Administration Flecainide Acetate 50 mg 03/15/19 21:00 03/16/19 08:18 Tambocor PO 50 mg Q12HR SHIRIN Administration Furosemide 20 mg 03/12/19 09:00 03/16/19 08:18 Lasix PO 20 mg DAILY SHIRIN Administration Levofloxacin 500 mg/ Device 100 mls @ 100 mls/hr 03/14/19 23:00 03/15/19 22: 29 IVPB 100 mls 2300 SHIRIN Administration Insulin Human Lispro 0 units 03/10/19 17:44 03/14/19 11:12 Humalog SC 2 unit .MILD SLIDING SCALE PRN Administration Mild Correctional Scale Metformin HCl 1,000 mg 03/11/19 17:00 03/16/19 08:18 Glucophage PO 1,000 mg BID-WM SHIRIN Administration Nystatin 0 gm 03/14/19 21:00 03/16/19 08:22 Mycostatin Powder TOP 1 applic BID SHIRIN Administration Pramipexole Dihydrochloride 0.5 mg 03/12/19 09:00 03/16/19 08:17 Mirapex PO 0.5 mg DAILY SHIRIN Administration Pyridostigmine [place] 60 mg 03/11/19 15:00 03/15/19 21:29 Mestinon PO 60 mg TID SHIRIN Administration Sodium Chloride 10 ml 03/10/19 17:39 03/14/19 08:40 Flush - Normal Saline IVF 10 ml Q12HR PRN Administration Saline Flush Trospium 20 mg 03/11/19 21:00 03/16/19 08:18 Trospium PO 20 mg BID SHIRIN Administration Venlafaxine HCl 75 mg 03/12/19 09:00 03/16/19 08:18 Effexor Xr PO 75 mg DAILY SHIRIN Administration - Exam General Appearance: ill appearing General - other findings: somnolent on mech ventilation Eye: PERRL ENT: normocephalic atraumatic ENT - other findings: ETT in place, secretions peripherally Neck: supple, symmetric, no JVD, no thyromegaly Heart: no murmur, normal peripheral pulses Heart - other findings: tachycardic, heart sounds distant Respiratory - other findings: diminished bilat, coarse sounds bilat Gastrointestinal: non-distended, normal bowel sounds, no palpable masses Gastrointestinal - other findings: obese Extremities: 1+ LE edema Extremities - other findings: discoloration of bilat feet(chronic) Skin: normal turgor Musculoskeletal: generalized weakness Psychiatric: somnolent, lethargic Hosp A/P (1) Acute respiratory failure with hypoxia Code(s): J96.01 - ACUTE RESPIRATORY FAILURE WITH HYPOXIA Status: Acute Plan: Likely multifactorial and progression of ALS, intubated this am, continue SIMV, check PCXR, ABG, BNP, Pulmonology following (2) Atrial fibrillation with RVR Code(s): I48.91 - UNSPECIFIED ATRIAL FIBRILLATION Status: Acute Plan: Atrial tachycardia vs sinus tachycardia, start Cardizem drip after bolus IV, titrate to optimal HR response (3) Flash pulmonary edema Code(s): J81.0 - ACUTE PULMONARY EDEMA Status: Acute Plan: Suspected, Lasix 40mg IV now, PCXR now (4) UTI (urinary tract infection) due to urinary indwelling catheter Code(s): T83.511A - I/I REACT D/T INDWELLING URETHRAL CATHETER, INIT; N39.0 - URINARY TRACT INFECTION, SITE NOT SPECIFIED Status: Acute Plan: Continue Levaquin 500mg IV daily (5) ALS (amyotrophic lateral sclerosis) Code(s): G12.21 - AMYOTROPHIC LATERAL SCLEROSIS Status: Chronic Plan: Likely progressive trajectory, consider Palliative discussion - Plan plan discussed w/ family, continue antibiotics, social insurance administrator, respiratory therapy, DVT proph w/SCDs Transferred to CCU Lasix 40mg IV x 1 now Start Cardizem gtt after 20mg IV bolus Levaquin 500mg IV daily Continue Eliquis 5mg po BID 2D echo for EF/structural assessment Lab: Troponin I q3h, BNP AM lab: BMP, CBC PCXR in am
[2019-03-16] MEDS ORDERED: Magnesium 2 GM/50 ML 2 GM in Premix Bag 1 BAG IVPB PRN (09:13)
[2019-03-16] MEDS ORDERED: Potassium Phosphate 12 MMOL in Sodium Chloride 0.9% 250 ML 250 ML IV PRN (09:13)
[2019-03-16] MEDS ORDERED: Magnesium Oxide 400 MG TAB PO PRN ×2 (09:13)
[2019-03-16] MEDS ORDERED: Potassium Phosphate 15 MMOL in Sodium Chloride 0.9% 250 ML 250 ML IV PRN (09:13)
[2019-03-16] MEDS ORDERED: Potassium Chloride 20 MEQ TAB PO PRN (09:13)
[2019-03-16] MEDS ORDERED: Potassium Phosphate 9 MMOL in Sodium Chloride 0.9% 100 ML IVPB PRN (09:13)
[2019-03-16] MEDS ORDERED: PHOS-NAK 1 PKT PACK PO PRN ×2 (09:13)
[2019-03-16] MEDS ORDERED: Potassium Chloride 40 MEQ in Sodium Chloride 0.9% 250 ML 250 ML IVPB PRN (09:13)
[2019-03-16] MEDS ORDERED: Lorazepam 2 MG/ML VIAL SLOW IVP PRN (09:14)
[2019-03-16] MEDS ORDERED: Propofol BOLUS 1,000 MG/100 ML VIAL IV PRN (09:14)
[2019-03-16] MEDS ORDERED: Fentanyl BOLUS 250 ML IVPB PRN (09:14)
[2019-03-16] MEDS ORDERED: fentaNYL Citrate/PF 2,000 MCG in Sodium Chloride 0.9% 60 ML IV SCH (09:14)
[2019-03-16] MEDS ORDERED: Ventilator Sedation Protocol 1 EACH FS SCH (09:15)
[2019-03-16] MEDS ORDERED: Diltiazem 125 MG in Sodium Chloride 0.9% 100 ML IVPB SCH (09:15)
[2019-03-16] MEDS ORDERED: Furosemide 40 MG/4 ML VIAL SLOW IVP SCH (09:30)
--- NOTE | 2019-03-16 09:48 | PDOC.OP ---
Operative Note - Operative Note Operative Note: Procedure: Central Line placement Preforming resident: Monique Aldridge MD PGY-2 ATTENDING PHYSICIAN: Dr. Dany Yoder CONSENT: Consent was obtained from family prior to the procedure. Indications, risks, and benefits were explained at length. PROCEDURE SUMMARY: Surgical cap, mask with protective eyewear, full gown and sterile gloves worn throughout the procedure. The patient was placed in Trendelenburg position. Left chest region was prepped using chlorhexidine scrub and draped in sterile fashion using a full drape and sterile probe cover employed. The medial and lateral heads of the sternocleidomastoid muscle were identified as was the carotid pulse. The Internal Jugular vein was identified using the ultrasound. Anesthesia was achieved over the vein using 1% lidocaine. Using real-time out of plane guidance, the introducer needle was inserted into the Internal Jugular vein under direct ultrasound visualization. Venous blood was withdrawn. The syringe was removed and a guidewire was advanced into the introducer needle. The guidewire was visualized in the Internal Jugular Vein by ultrasound. A small incision was made at the skin surface with a scalpel and the introducer needle was exchanged for a dilator over the guidewire. After appropriate dilation was obtained, the dilator was exchanged over the wire for a central venous catheter. The wire was removed and the catheter was sutured in place. Site was dressed appropriately. The patient tolerated the procedure without any hemodynamic compromise. At time of procedure completion, all ports aspirated and flushed properly. Post-procedure chest x-ray is pending at this time. Estimated blood loss is <10cc.
[2019-03-16 10:00] LABS: Actual Bicarbonate (HCO3a) 26.1 mEq/L (22-28); Base Excess (BEa) -1.1 mEq/L (-2.0 to +3.0); CO2 Tension 53.6 mmHg (35.0-45.0); Calcium, Ionized 1.07 mmol/L (1.12-1.30); Carboxyhemoglobin (COHb) 1.6 gm% (0.0-3.0); Hemoglobin (Hb) 13.8 g/dL (12.0-16.0); O2 Tension (PaO2) 66.2 mmHg (> 80.0); Potassium - ABG Lab 3.63 mmol/L (3.70-5.30); pH, Arterial 7.31 (7.35-7.45)
--- NOTE | 2019-03-16 10:00 | RAD ---
Exam: Chest one view HISTORY:Intubated patient Comparison: 03/05/2019 FINDINGS: Endotracheal tube has been placed with tip above the marleen. There is a left internal jugular venous catheter with tip overlying the SVC. Lungs: There is generalized hazy density throughout the right lung. Consolidation of left lung base o bscures left hemidiaphragm. There is interstitial prominence bilaterally. Cardiac silhouette:Enlarged cardiac silhouette Pulmonary vessels: Engorged pulmonary vasculature Pleural Spaces: Bibasilar densities likely relate to superimposed pleural fluid. Pneumothorax: None Osseous abnormalities: None of acuity. IMPRESSION: 1. Interval placement of endotracheal tube and left IJ venous catheter. 2. Bilateral pulmonary parenchymal and pleural-based opacities which may be on the basis of fluid ove rload. Superimposed pneumonia not excluded. Correlate clinically. Recommend continued imaging follow-up.
[2019-03-16 10:02] LABS: Puncture Site RRA
--- NOTE | 2019-03-16 10:03 | PRG ---
DATE OF SERVICE: 03/16/2019 HUGO SPENT: This is 35 minutes of critical care time. This also serves as a Code Blue note. Nestor Elias was called on this patient at approximately 8:30 a.m. this morning. She was found to be in agonal respirations by the nursing staff. I arrived almost immediately and noticed her to have gasping respirations. I spoke to the , who was immediately available. It was clear that the patient need to be in endotracheally intubated. Because of her history of ALS, I wanted to confirm whether or not they truly wanted the patient to be intubated. They said they wanted to proceed with intubation. I used a GlideScope to intubate her with 7.5 endotracheal tube orally on the first attempt. The placement was confirmed by end-tidal CO2 capnography, which turned yellow. Tube was secured at 23 cm at the lip. She was brought to the CCU for further care. OBJECTIVE: VITAL SIGNS: Currently, pulse 141, blood pressure 170/101, O2 saturation 96%, and respiratory rate 30. GENERAL: She is intubated and sedated. HEENT: Otherwise, unremarkable. NECK: No JVD. CHEST: Clear anteriorly. CARDIAC: S1 and S2. Tachycardic. ABDOMEN: Soft, obese. EXTREMITIES: No edema. LABORATORY DATA: White blood cell count 6.8, hematocrit 38.8, and platelet count 244. ABG pending. Sodium 138, potassium 4, chloride 100, CO2 of 26, BUN 13, creatinine 0.8, and glucose 137. ASSESSMENT: 1. Amyotrophic lateral sclerosis with chronic respiratory failure - unable to control airway. 2. Tachyarrhythmias. 3. Obesity. PLAN: She has been intubated and placed on mechanical ventilation. She will need a central line because of poor IV access. Likely will need to progress to tracheostomy and chronic mechanical ventilation, but family needs some time to discuss this. Job ID: [id number]
[2019-03-16] MEDS: Pyridostigmine Bromide IR 60 MG TAB PO SCH ×3 (10:44→21:18)
[2019-03-16] MEDS: HumaLOG 300 UNITS/3 ML VIAL SC PRN (12:06)
[2019-03-16 12:46] LABS: Troponin I 0.101 ng/mL (< 0.028)
[2019-03-16] MEDS: Propofol 1,000 MG/100 ML VIAL IV PRN ×2 (12:50→21:21)
[2019-03-16 13:31] VITALS: BMI 43.4
[2019-03-16 15:28] LABS: Troponin I 0.115 ng/mL (< 0.028)
--- NOTE | 2019-03-16 17:22 | PRG ---
DATE OF SERVICE: 03/16/2019 SUBJECTIVE: Ms. Rebolledo developed a very rapid tachycardia this morning, which she did not tolerate and require transfer to the intensive care unit and intubation. Currently, intubated and sedated. OBJECTIVE: VITAL SIGNS: Blood pressure is 100/60, pulse is variable anywhere between 120 to 150. LUNGS: Distant. CARDIAC: Tachycardic. ABDOMEN: Obese, nontender. DIAGNOSTIC STUDIES: Echocardiogram; ejection fraction is difficult to be precise in view of the severe tachycardia, estimated 20% to 30%, but really cannot be precise due to the degree of tachycardia. EKG has a wide-complex rhythm, looks like I suspect atrial flutter with 2:1 conduction with a rapid rate. ASSESSMENT: 1. Congestive heart failure, likely systolic, exacerbated by tachycardia. 2. Morbid obesity. 3. Neurologic disorder, previously outlined. PLAN: 1. Stop flecainide. 2. Change to amiodarone. 3. Prognosis, guarded. Job ID: [id number]
[2019-03-16] MEDS: Amiodarone 450 MG in Dextrose 5% in Water 250 ML IVPB SCH (18:15)
[2019-03-16 18:25] LABS: Troponin I 0.117 ng/mL (< 0.028)
--- NOTE | 2019-03-16 19:04 | PRG ---
DATE OF SERVICE: 03/16/2019 I am seeing Ms. Rebolledo at our [facility] as a followup. SUBJECTIVE: Ms. Rebolledo developed respiratory failure, required transient resuscitation and intubation at 8:30 this morning. She was noted to be tachycardic at that time but only in sinus tachycardia. She was placed on ventilator. With Diprivan and oxygenation, her symptoms improved. Since then, she is being diuresed with furosemide and chest x-ray intubation with pulmonary parenchymal opacities, fluid overload, superimposed pneumonia is not currently ruled out. OBJECTIVE DATA: VITAL SIGNS: Blood pressure is 144/98, heart rate 157, respirations 18, temperature 98.6 degrees Fahrenheit, and O2 sat is 93% on 2 L at 7:30 a.m. in the morning. At 8 o'clock, blood pressure 152/106. GENERAL: Intubated, sedated woman with elevated BMI, in no apparent distress. NECK: Supple. Jugular veins not distended. CHEST: Coarse without crackles. HEART: Sounds are regular, somewhat tachycardic. No murmur or gallop. ABDOMEN: Benign. Bowel sounds positive. EXTREMITIES: Lower extremities, without edema, clubbing, or cyanosis. DATABASE: Telemetry strips reviewed revealing sinus tachycardia. EKG corresponds to this. No ventricular arrhythmias are seen. No definite flutter noted. LABORATORY DATA: White cell count 6.8, hemoglobin is 13, and platelet count is 244. Sodium 138, potassium 4, BUN is 13, creatinine 0.8. Troponin levels are 0.21 and 0.11. ASSESSMENT AND PLAN: Ms. Rebolledo is a pleasant 68-year-old woman with history of amyotrophic lateral sclerosis, recurrent atrial arrhythmias on admission, recurrent flash pulmonary edema, and atrial flutter on presentation. She developed progressive respiratory failure this morning and eventually, required intubation. It currently seems to be stabilizing. The atrial arrhythmias become more pronounced, although the exact origin of the atrial tachycardia was difficult to visualize. I have not seen definite recurrent atrial flutter. This patient's management is increasingly difficult with her poor respiratory status and recurrent atrial arrhythmias. Hence poor LVEF per ECHO - we will stop flecainide. I am not convinced that though that this morning events are clearly arrhythmia related to progression of her respiratory failure could be also contributory. If necessary, further antiarrhythmic agents used, amiodarone could be a potential choice. PLAN: 1. At this point, continue rate controlling strategies. Monitor, optimize arrhythmias. 2. Optimize pulmonary status. 3. Consider workup for cardiomyopathy. 4. Consider amiodarone if further recurrent atrial arrhythmias are seen. Job ID: [id number] MATTHEW
[2019-03-16 19:53] LABS: Hemoglobin 12.5 g/dL (12.0-16.0); Platelet Count 276 thou/uL (130-400)
[2019-03-17] MEDS: Amiodarone 450 MG in Dextrose 5% in Water 250 ML IVPB SCH ×2 (00:35→18:12)
[2019-03-17 04:38] LABS: #Basophils 0.1 thou/uL (0.0-0.2); #Monocytes 0.7 thou/uL (0.11-0.59); #Neutrophils 6.8 thou/uL (1.40-6.50); %Basophils 0.7 % (0.0-1.0); %Eosinophils 0.5 % (0.0-10.0); %Lymphocytes 11.4 % (21.0-51.0); %Monocytes 7.7 % (0.0-10.0); %Neutrophils 79.7 % (42.0-75.0); Hemoglobin 12.5 g/dL (12.0-16.0); Mean Corpuscular HGB CONC 33.4 g/dL (32.0-36.0); Mean Corpuscular Hemoglobin 29.4 pg (27.0-31.0); Platelet Count 264 thou/uL (130-400); RBC Distribution Width 16.2 % (11.5-14.5); Red Blood Cell (RBC) Count 4.25 mill/uL (4.20-5.40); White Blood Cell (WBC) Count 8.5 thou/uL (4.8-10.8)
[2019-03-17 04:54] LABS: Anion Gap 15 mmol/L (10-20); BUN (Urea Nitrogen) 15 mg/dL (9.8-20.1); Calc. Creatinine Clearance 120 mL/min (70-130); Calcium 8.4 mg/dL (7.8-10.44); Carbon Dioxide 26 mmol/L (23-31); Chloride 98 mmol/L (98-107); Estimated GFR-MDRD 70; Glucose 131 mg/dL (80-115); Potassium 3.5 mmol/L (3.5-5.1); Sodium 135 mmol/L (136-145)
[2019-03-17 07:05] LABS: Actual Bicarbonate (HCO3a) 22.8 mEq/L (22-28); Analyzer IN Cardio OR; Base Excess (BEa) 0.7 mEq/L (-2.0 to +3.0); CO2 Tension 29.4 mmHg (35.0-45.0); Calcium, Ionized 1.11 mmol/L (1.12-1.30); Carboxyhemoglobin (COHb) 1.1 gm% (0.0-3.0); Hemoglobin (Hb) 12.8 g/dL (12.0-16.0); O2 Tension (PaO2) 85.2 mmHg (> 80.0); pH, Arterial 7.51 (7.35-7.45)
[2019-03-17 07:09] LABS: Puncture Site LRA
[2019-03-17] MEDS: Aspirin Chewable 81 MG TAB PO SCH (08:14)
[2019-03-17] MEDS: Venlafaxine HCl XR 75 MG CAP PO SCH (08:14)
[2019-03-17] MEDS: Furosemide 20 MG TAB PO SCH (08:14)
[2019-03-17] MEDS: Pyridostigmine Bromide IR 60 MG TAB PO SCH ×3 (08:14→21:07)
[2019-03-17] MEDS: metFORMIN 500 MG TAB PO SCH ×2 (08:14→16:34)
[2019-03-17] MEDS: Trospium 20 MG TAB PO SCH ×2 (08:14→21:08)
[2019-03-17] MEDS: Famotidine/PF 20 mg/2ml Vial SLOW IVP SCH ×2 (08:15→21:07)
[2019-03-17] MEDS: Ferrous Sulfate 325 MG TAB PO SCH ×2 (08:15→21:07)
[2019-03-17] MEDS: Pramipexole Di-HCl 0.25 MG TAB PO SCH (08:25)
[2019-03-17] MEDS: Apixaban 5 MG TAB PO SCH ×2 (08:25→21:07)
[2019-03-17] MEDS: Nystatin Powder 15 GM BOT TOP SCH ×2 (08:36→21:09)
--- NOTE | 2019-03-17 09:25 | RAD ---
PORTABLE CHEST: INDICATIONS: Pneumonia. CCU followup. COMPARISON: 03/16/2019 FINDINGS: ET tube and NG tube remain in place. Increasing opacification in the right lung is noted, primarily involving the mid and lower right lung. The patient is rotated, which distorts the chest and limits e valuation. There is left basilar opacification also noted, consistent with dense atelectasis or infil trate. Cardiomegaly with mild vascular congestion is noted. IMPRESSION: Increasing opacity in the right lung base. Some of this appearance may be due to positioning. Other f indings such as left basilar atelectasis/consolidation and vascular engorgement appear stable. POS: OFF
[2019-03-17] MEDS: Propofol 1,000 MG/100 ML VIAL IV PRN ×3 (09:50→21:18)
--- NOTE | 2019-03-17 09:55 | PRG ---
DATE OF SERVICE: 03/17/2019 TIME SPENT: 35 minutes of critical care time. SUBJECTIVE: I saw the patient and also I had a discussion with family at bedside including her 's son. She remains intubated on mechanical ventilation. She is sedated on propofol. OBJECTIVE: VITAL SIGNS: Temperature 97.1, pulse 86, blood pressure 130/76, and O2 saturation 96%. She is on amiodarone drip. HEENT: Remarkable for an intubated patient. NECK: No adenopathy or JVD. LUNGS: Coarse breath sounds. CARDIAC: S1 and S2. Regular. ABDOMEN: Soft. EXTREMITIES: No edema. LABORATORY DATA: Sodium 135, potassium 3.5, chloride 98, CO2 of 26, BUN 15, creatinine 0.8, and glucose 131. PH of 7.51, pCO2 of 29, pO2 of 85 that is on SIMV rate 14, tidal volume 500, PEEP 5, pressure support 10, and FiO2 of 40%. White blood cell count 8.5, hematocrit 37.4, and platelet count 264. IMAGING DATA: X-ray is rotated. ASSESSMENT: 1. Acute respiratory failure, requiring mechanical ventilation. 2. Chronic respiratory failure likely secondary to amyotrophic lateral sclerosis. 3. Tachyarrhythmias, which I think are probably aggravated by her bulbar symptoms from amyotrophic lateral sclerosis. PLAN: I discussed with family choice of tracheostomy, feeding tube placement versus Palliative Care. They obviously need some time to decide. I will adjust her respiratory rate. We will go ahead and initiate tube feedings. Job ID: [id number]
--- NOTE | 2019-03-17 10:50 | PRG ---
DATE OF SERVICE: 03/17/2019 SUBJECTIVE: Ms. Rebolledo seems to be doing fair overnight, continues to be intubated and sedated. Heart rhythm is still with episodes of atrial tachycardia rounds. Now, she is on amiodarone medication. OBJECTIVE: VITAL SIGNS: Blood pressure is 107/82, heart rate 84, the patient's respiratory rate is 23, and the patient's temperature is 97.1 degrees Fahrenheit. GENERAL: Intubated, sedated, obese woman, in no apparent distress. NECK: Supple. Jugular veins difficult to visualize. CHEST: Coarse. No crackles. HEART: Sounds are regular to rate and rhythm with occasional ectopy. No murmur or gallop. ABDOMEN: Benign. Bowel sounds positive. EXTREMITIES: Lower extremity with 1 to 2+ edema. NEUROLOGIC: The patient is nonfocal. MUSCULOSKELETAL: Without joint swelling or deformity. SKIN: Without rash. DATABASE: Chest x-rays this morning reveal increasing opacity in the right lung base, possibly positioning related left basilar atelectasis, consolidation, and vascular engorgement. Chest x-ray from 03/16/2019 does reveal LVEF 20% to 30%, heart rate 150 beats per minute, [id number] tricuspid regurgitation, no pericardial effusion, [id number] MR as well. LABORATORY DATA: Reveals white blood cell count 8.5 from 12.5, platelet count is 264. Sodium 135, potassium 3.5, BUN is 15, creatinine 0.81. ABGs; pH 7.51, pO2 of 85, and pCO2 of . ASSESSMENT AND PLAN: Ms. Rebolledo is an unfortunate 68-year-old woman with history of amyotrophic lateral sclerosis, recurrent flash pulmonary edema, and respiratory failure, who was also found in atrial flutter, initially could not tolerate [place]. The paroxysms though seem to have resolved recently, but she has recurrent atrial tachycardia runs. We attempted flecainide suppression last night, but her pulmonary status worsened and she got intubated, continues to have atrial tachycardia runs with no definitive atrial flutter is seen. She was initiated on amiodarone therapy to optimize her cardiac function. In view of her [id number] reduced LVEF on her echo yesterday, this is reasonable choice. Long-term side effects of pulmonary, thyroid, liver, and optic nerve toxicity was discussed with the family. They understand the risks and benefits of this drug. Continue pulmonary optimization as per Dr. Yoder. I suspect she will be difficult case to extubate also has been entertained. Followup echocardiogram will be reasonable after heart rate control to assess the actual LVEF, hence at the time of exam, heart rates were up to 150 at times; therefore, the LVEF might be falsely underestimated. We will follow up with you. Thank you again for allowing me to participate in the care of this patient. Job ID: [id number]
--- NOTE | 2019-03-17 11:01 | PRG ---
DATE OF SERVICE: 03/17/2019 SUBJECTIVE: Ms. Rebolledo is intubated on the ventilator. OBJECTIVE: VITAL SIGNS: Heart rates now in the 90s, it is irregular. LUNGS: Clear. CARDIAC: Irregularly irregular. ABDOMEN: Obese and nontender. EXTREMITIES: There is only mild edema. LABORATORY DATA: Echocardiogram yesterday showed the ejection fraction estimated 20% to 30%, but really this was not necessarily accurate as the heart rate was 150 beats per minute. ASSESSMENT: 1. Respiratory failure. 2. Generalized weakness with neurologic disorder. 3. Congestive heart failure systolic. 4. Atrial fibrillation with a history of atrial tachycardia and flutter. PLAN: 1. She is on intravenous amiodarone. 2. Family is considering code status. Job ID: [id number]
--- NOTE | 2019-03-17 18:47 | PDOC.HOSPP ---
- Subjective Encounter Date: 03/17/19 Encounter Time: 10:30 Subjective: f/u for resp failure on mech ventilation and atrial tachyarrhythmias on current Amiodarone gtt. - Objective Vital Signs & Weight: Vital Signs (12 hours) Temp Pulse Resp BP Pulse Ox 03/17/19 18:39 90 92/56 L 03/17/19 18:00 13 03/17/19 16:00 98.8 F 18 03/17/19 14:58 92 97/73 03/17/19 14:00 13 03/17/19 12:00 98.3 F 15 03/17/19 10:44 86 92/63 03/17/19 10:00 17 03/17/19 08:00 16 03/17/19 07:16 96 03/17/19 07:00 97.1 F L 03/17/19 06:54 127 H 99/74 Weight Admit Weight 237 lb 4.8 oz Weight 253 lb Most Recent Monitor Data Heart Rate from ECG 86 NIBP 92/56 NIBP BP-Mean 68 Respiration from ECG 18 SpO2 97 I&O: 03/16/19 03/17/19 03/18/19 06:59 06:59 06:59 Intake Total 1303 627 Output Total 204 679 6271 Balance -500 356 -468 Result Diagrams: 03/17/19 04:26 03/17/19 04:26 Additional Labs: Accuchecks 03/17/19 03/17/19 03/16/19 15:46 10:47 22:20 POC Glucose 137 H 128 H 98 03/16/19 17:57 POC Glucose 120 H Radiology Reviewed by me: Yes (PCXR - increased density in R lung base, lines/ tubes in place) EKG Reviewed by me: Yes (Tele - intermittent atrial tachycardia) Hospitalist ROS - Medication Medications: Active Medications Generic Name Dose Route Start Last Admin Trade Name Freq PRN Reason Stop Dose Admin Acetaminophen 650 mg 03/10/19 17:39 03/14/19 04:30 Tylenol PO 650 mg Q4H PRN Administration Headache/Fever/Mild Pain (1-3) Albuterol/Ipratropium 3 ml 03/11/19 10:20 03/16/19 07:58 Duoneb NEB 3 ml [id number] PRN Administration SOB &/or Wheezing Apixaban 5 mg 03/12/19 09:00 03/17/19 08:25 Eliquis PO 5 mg BID SHIRIN Administration Aspirin 81 mg 03/12/19 09:00 03/17/19 08:14 Aspirin Chewable PO 81 mg DAILY SHIRIN Administration Famotidine 20 mg 03/10/19 21:00 03/17/19 08:15 Pepcid SLOW IVP 20 mg Q12HR SHIRIN Administration Ferrous Sulfate 325 mg 03/11/19 21:00 03/17/19 08:15 Feosol PO 325 mg BID SHIRIN Administration Furosemide 20 mg 03/12/19 09:00 03/17/19 08:14 Lasix PO 20 mg DAILY SHIRIN Administration Magnesium Sulfate 1 gm/ Sodium 102 mls @ 102 mls/hr 03/16/19 09:13 03/16/19 14:32 Chloride IV 102 mls PRN PRN Administration MAG LEVEL 1.4 - 2.0 Amiodarone HCl 450 mg/ 259 mls @ 0 mls/hr 03/16/19 17:15 03/17/19 18:12 Dextrose/Water IVPB 259 mls INF SHIRIN Administration Protocol Per Protocol Levofloxacin 500 mg/ Device 100 mls @ 100 mls/hr 03/16/19 23:59 03/17/19 00: 33 IVPB 100 mls 2359 SHIRIN Administration Insulin Human Lispro 0 units 03/10/19 17:44 03/16/19 12:06 Humalog SC 3 unit .MILD SLIDING SCALE PRN Administration Mild Correctional Scale Metformin HCl 1,000 mg 03/11/19 17:00 03/17/19 16:34 Glucophage PO 1,000 mg BID-WM SHIRIN Administration Nystatin 0 gm 03/14/19 21:00 03/17/19 08:36 Mycostatin Powder TOP 1 applic BID SHIRIN Administration Pramipexole Dihydrochloride 0.5 mg 03/12/19 09:00 03/17/19 08:25 Mirapex PO 0.5 mg DAILY SHIRIN Administration Propofol 1,000 mg 03/16/19 09:14 03/17/19 15:21 Diprivan IV 04/15/19 09:14 1,000 mg INF PRN Administration TO ACHIEVE GOAL RASS Protocol Pyridostigmine [place] 60 mg 03/11/19 15:00 03/17/19 14:51 Mestinon PO 60 mg TID SHIRIN Administration Sodium Chloride 10 ml 03/10/19 17:39 03/14/19 08:40 Flush - Normal Saline IVF 10 ml Q12HR PRN Administration Saline Flush Trospium 20 mg 03/11/19 21:00 03/17/19 08:14 Trospium PO 20 mg BID SHIRIN Administration Venlafaxine HCl 75 mg 03/12/19 09:00 03/17/19 08:14 Effexor Xr PO 75 mg DAILY SHIRIN Administration - Exam General - other findings: sedate on mech ventilation Eye: PERRL ENT: normocephalic atraumatic, no oropharyngeal lesions ENT - other findings: ETT in place Neck: supple, symmetric, no JVD, no thyromegaly Heart: no rubs, normal peripheral pulses, irregular Heart - other findings: tachycardic Respiratory - other findings: scattered coarse sounds bilat Gastrointestinal: soft, non-distended, normal bowel sounds, no palpable masses Gastrointestinal - other findings: obese Extremities - other findings: discoloration to bilat feet(chronic) Neurological - other findings: sedate on mech vent Psychiatric: somnolent Hosp A/P (1) Acute respiratory failure with hypoxia Code(s): J96.01 - ACUTE RESPIRATORY FAILURE WITH HYPOXIA Status: Acute Plan: Continue mech ventilation, likely progression of ALS in conjunction with flash pulm edema, continue current mech ventilation (2) Atrial fibrillation with RVR Code(s): I48.91 - UNSPECIFIED ATRIAL FIBRILLATION Status: Acute Plan: Persistent atrial tachycardia, continue Amiodarone gtt, Eliquis (3) Flash pulmonary edema Code(s): J81.0 - ACUTE PULMONARY EDEMA Status: Acute Plan: Improved, continue mech ventilation, monitor daily weight, I/O' (4) UTI (urinary tract infection) due to urinary indwelling catheter Code(s): T83.511A - I/I REACT D/T INDWELLING URETHRAL CATHETER, INIT; N39.0 - URINARY TRACT INFECTION, SITE NOT SPECIFIED Status: Acute Plan: Continue Levaquin (5) ALS (amyotrophic lateral sclerosis) Code(s): G12.21 - AMYOTROPHIC LATERAL SCLEROSIS Status: Chronic Plan: Likely progression, Palliative care options - Plan continue antibiotics, social research assistant, respiratory therapy Transferred to CCU Lasix 20mg daily Continue Amiodarone IV gtt Levaquin 500mg IV daily Continue Eliquis 5mg po BID AM lab: BMP, CBC PCXR in am
--- NOTE | 2019-03-17 19:53 | EKG ---
Test Reason : STAT Blood Pressure : / mmHG Vent. Rate : 105 BPM Atrial Rate : 129 BPM P-R Int : 164 ms QRS Dur : 120 ms QT Int : 370 ms P-R-T Axes : 080 -41 042 degrees QTc Int : 489 ms Sinus tachycardia with Premature atrial complexes Left axis deviation Low voltage QRS Right bundle branch block Inferior infarct , age undetermined Abnormal ECG When compared with ECG of 13-MAR-2019 02:15, (Unconfirmed) Significant changes have occurred Confirmed by BÁRBARA QUINN, SM[employer]com (4) on 03/17/2019 7:52:52 PM Referred By: RAAD Confirmed By:DR. Melania GRANGER MD
--- NOTE | 2019-03-17 19:54 | EKG ---
Test Reason : CODE BLUE Blood Pressure : / mmHG Vent. Rate : 148 BPM Atrial Rate : 148 BPM P-R Int : 082 ms QRS Dur : 122 ms QT Int : 332 ms P-R-T Axes : 054 -66 071 degrees QTc Int : 521 ms Sinus tachycardia with short SD with Fusion complexes Left axis deviation Right bundle branch block Inferior infarct (cited on or before 14-FEB-2017) Abnormal ECG When compared with ECG of 16-MAR-2019 00:42, (Unconfirmed) Fusion complexes are now Present Premature atrial complexes are no longer Present SD interval has decreased Serial changes of Inferior infarct Present Confirmed by BÁRBARA QUINN, DR. Velázquez (4) on 03/17/2019 7:54:31 PM Referred By: MARYLOU/JUSTICE Confirmed By:DR. Melania GRANGER MD
[2019-03-18] MEDS: Propofol 1,000 MG/100 ML VIAL IV PRN ×2 (03:52→12:40)
[2019-03-18 04:06] LABS: #Eosinphils 0.1 thou/uL (0.0-0.7); #Monocytes 0.7 thou/uL (0.11-0.59); #Neutrophils 6.4 thou/uL (1.40-6.50); %Basophils 0.3 % (0.0-1.0); %Lymphocytes 12.2 % (21.0-51.0); %Neutrophils 78.5 % (42.0-75.0); Hemoglobin 12.6 g/dL (12.0-16.0); Mean Corpuscular HGB CONC 33.4 g/dL (32.0-36.0); Mean Corpuscular Hemoglobin 29.4 pg (27.0-31.0); Mean Corpuscular Volume 88.2 fL (78.0-98.0); Mean Platelet Volume 8.3 fL (7.4-10.4); Platelet Count 258 thou/uL (130-400); RBC Distribution Width 16.1 % (11.5-14.5); Red Blood Cell (RBC) Count 4.27 mill/uL (4.20-5.40); White Blood Cell (WBC) Count 8.1 thou/uL (4.8-10.8)
[2019-03-18 04:24] LABS: Anion Gap 13 mmol/L (10-20); BUN (Urea Nitrogen) 12 mg/dL (9.8-20.1); Calc. Creatinine Clearance 123 mL/min (70-130); Calcium 8.4 mg/dL (7.8-10.44); Carbon Dioxide 27 mmol/L (23-31); Chloride 100 mmol/L (98-107); Estimated GFR-MDRD 72; Glucose 156 mg/dL (80-115); Potassium 3.2 mmol/L (3.5-5.1); Sodium 137 mmol/L (136-145)
[2019-03-18] MEDS: Potassium Chloride 40 MEQ in Premix Bag 1 BAG IVPB PRN (05:26)
[2019-03-18] MEDS: HumaLOG 300 UNITS/3 ML VIAL SC PRN ×2 (05:35→12:50)
[2019-03-18] MEDS: Ferrous Sulfate 325 MG TAB PO SCH ×2 (07:38→21:45)
[2019-03-18] MEDS: metFORMIN 500 MG TAB PO SCH ×2 (07:38→17:39)
[2019-03-18] MEDS: Furosemide 20 MG TAB PO SCH (07:38)
[2019-03-18] MEDS: Pyridostigmine Bromide IR 60 MG TAB PO SCH ×3 (07:38→21:45)
[2019-03-18] MEDS: Aspirin Chewable 81 MG TAB PO SCH (07:38)
[2019-03-18] MEDS: Nystatin Powder 15 GM BOT TOP SCH ×2 (07:39→21:46)
[2019-03-18] MEDS: Famotidine/PF 20 mg/2ml Vial SLOW IVP SCH ×2 (07:39→21:45)
[2019-03-18] MEDS: Venlafaxine HCl XR 75 MG CAP PO SCH (07:40)
[2019-03-18] MEDS: Trospium 20 MG TAB PO SCH ×2 (07:40→21:45)
[2019-03-18] MEDS: Apixaban 5 MG TAB PO SCH ×2 (07:44→21:45)
[2019-03-18] MEDS: Pramipexole Di-HCl 0.25 MG TAB PO SCH (07:44)
[2019-03-18 08:06] LABS: Actual Bicarbonate (HCO3a) 25.3 mEq/L (22-28); Base Excess (BEa) 2.1 mEq/L (-2.0 to +3.0); Calcium, Ionized 1.17 mmol/L (1.12-1.30); Carboxyhemoglobin (COHb) 1.4 gm% (0.0-3.0); Hemoglobin (Hb) 13.3 g/dL (12.0-16.0); O2 Tension (PaO2) 69.9 mmHg (> 80.0); Potassium - ABG Lab 4.16 mmol/L (3.70-5.30); pH, Arterial 7.48 (7.35-7.45)
[2019-03-18 08:08] LABS: Puncture Site LRA
--- NOTE | 2019-03-18 09:05 | RAD ---
PORTABLE CHEST: HISTORY: Pneumonia followup. CCU followup. COMPARISON: 03/17/2019. FINDINGS: Bilateral effusions and bibasilar infiltrates and/or atelectasis. Cardiomegaly and mild vascular eng orgement. ET tube, NG tube, and central lines are unchanged. IMPRESSION: The above findings have not significantly changed from yesterday. POS: ERNIE
[2019-03-18] MEDS: Amiodarone 450 MG in Dextrose 5% in Water 250 ML IVPB SCH (09:34)
--- NOTE | 2019-03-18 10:14 | PRG ---
DATE OF SERVICE: 03/18/2019 TIME SPENT: 35 minutes critical time. SUBJECTIVE: The patient remains intubated on mechanical ventilation. Her and son are at the bedside. OBJECTIVE: VITAL SIGNS: Temperature 99.0, pulse 94, blood pressure 109/77, O2 saturations 97%. Intake 24 hours 1871, output 1618. HEENT: Unremarkable except for ET tube in place. NECK: No JVD. LUNGS: Clear anteriorly. CARDIAC: S1 and S2, irregular. ABDOMEN: Soft and nontender. EXTREMITIES: No edema. Severe muscle wasting in legs. LABORATORY DATA: ABG; pH 7.48, pCO2 of 35, PO2 of 69 on SIMV rate 10, tidal volume 550, PEEP 5, pressure support 10, FiO2 of 40%. White blood cell count 8.1, hematocrit 37.7, and platelet count 258. Sodium 137, potassium 3.2, BUN 12, creatinine 0.7, glucose 156. ASSESSMENT: 1. Progressive amyotrophic lateral sclerosis. 2. Respiratory failure, requiring mechanical ventilation. 3. Tachyarrhythmias. PLAN: I believe the family is leaning towards withdrawing care, but they want to wait until this coming Friday. I do not think the patient is weanable in the interim. Palliative Care has done a great job of discussing the dynamics with the family. We will follow. Job ID: [id number]
--- NOTE | 2019-03-18 10:42 | PRG ---
DATE OF SERVICE: 03/18/2019 SUBJECTIVE: Ms. Rebolledo is intubated on the ventilator. No review of systems available. She is intubated and sedated. OBJECTIVE: VITAL SIGNS: Her blood pressure 109/77 and pulse is 130, it is tachycardic. LUNGS: Distant. CARDIAC: Tachycardic. ABDOMEN: Obese and nontender. ASSESSMENT: 1. Neurologic disorder as outlined in the chart. 2. Tachycardia. 3. Respiratory failure. PLAN: The patient is on intravenous amiodarone. The family is deciding whether to withdraw support. The prognosis looks very poor. Job ID: [id number]
--- NOTE | 2019-03-18 16:53 | PDOC.CPN ---
- Subjective Date: 03/18/19 Time: 08:00 Interval history: remains intubated and sedated. On IV amiodarone for arrhythmia suppression ( AFlutter and A tach) - Review of Systems ROS unobtainable: due to endotracheal tube (intubated/ sedated) - Objective Allergies/Adverse Reactions: Allergies Allergy/AdvReac Type Severity Reaction Status Date / Time No Known Allergies Allergy Verified 03/10/19 19:19 Visit Medications: Current Medications Acetaminophen (Tylenol) 650 mg PO Q4H PRN PRN Reason: Headache/Fever/Mild Pain (1-3) Last Admin: 03/14/19 04:30 Dose: 650 mg Acetaminophen (Tylenol) 650 mg [place] Q4H PRN PRN Reason: Headache/Fever/Mild Pain (1-3) Albuterol/Ipratropium (Duoneb) 3 ml NEB [id number] PRN PRN Reason: SOB &/or Wheezing Last Admin: 03/16/19 07:58 Dose: 3 ml Apixaban (Eliquis) 5 mg PO BID [facility] Last Admin: 03/18/19 07:44 Dose: 5 mg Aspirin (Aspirin Chewable) 81 mg PO DAILY [facility] Last Admin: 03/18/19 07:38 Dose: 81 mg Dextrose/Water (Dextrose 50%) 25 gm SLOW IVP PRN PRN PRN Reason: Hypoglycemia Famotidine (Pepcid) 20 mg SLOW IVP Q12HR [facility] Last Admin: 03/18/19 07:39 Dose: 20 mg Ferrous Sulfate (Feosol) 325 mg PO BID [facility] Last Admin: 03/18/19 07:38 Dose: Not Given Furosemide (Lasix) 20 mg PO DAILY [facility] Last Admin: 03/18/19 07:38 Dose: 20 mg Glucagon (Glucagon) 1 mg IM PRN PRN PRN Reason: Hypoglycemia Dextrose/Water (D5w) 1,000 mls @ 0 mls/hr IV .Q0M PRN PRN Reason: Hypoglycemia Potassium Chloride 40 meq/ (Sodium Chloride) 270 mls @ 135 mls/hr IVPB ASDIR PRN PRN Reason: FOR SERUM K+ 2.5 - 3.5 Potassium Chloride 40 meq/ (Device) 100 mls @ 50 mls/hr IVPB ASDIR PRN PRN Reason: FOR SERUM K+ 2.5 - 3.5 Last Admin: 03/18/19 05:26 Dose: 100 mls Magnesium Sulfate 1 gm/ Sodium (Chloride) 102 mls @ 102 mls/hr IV PRN PRN PRN Reason: MAG LEVEL 1.4 - 2.0 Last Admin: 03/16/19 14:32 Dose: 102 mls Magnesium Sulfate 2 gm/ Device 50 mls @ 50 mls/hr IVPB ASDIR PRN PRN Reason: MAGNESIUM < 1.4 Potassium Phosphate 9 mmol/ (Sodium Chloride) 103 mls @ 25.75 mls/hr IVPB ASDIR PRN PRN Reason: Phosphate 1.0-1.8 Potassium Phosphate 12 mmol/ (Sodium Chloride) 254 mls @ 63.5 mls/hr IV ASDIR PRN PRN Reason: Serum phosphate 0.5-0.9 Potassium Phosphate 15 mmol/ (Sodium Chloride) 255 mls @ 63.75 mls/hr IV ASDIR PRN PRN Reason: Serum Phos < 0.5 Fentanyl Citrate 2,000 mcg/ (Sodium Chloride) 100 mls @ 0 mls/hr IV INF [facility]; Protocol Stop: 04/15/19 09:14 Fentanyl Citrate (Fentanyl Bolus) 250 mls @ 0 mls/hr IVPB PRN PRN PRN Reason: Breakthrough pain/agitation Stop: 04/15/19 09:14 Amiodarone HCl 450 mg/ (Dextrose/Water) 259 mls @ 0 mls/hr IVPB INF [facility]IRIN; Protocol Last Admin: 03/18/19 09:34 Dose: 259 mls Levofloxacin 500 mg/ Device 100 mls @ 100 mls/hr IVPB 2359 [facility] Last Admin: 03/18/19 01:17 Dose: 100 mls Insulin Human Lispro (Humalog) 0 units SC .MILD SLIDING SCALE PRN PRN Reason: Mild Correctional Scale Last Admin: 03/18/19 12:50 Dose: 2 unit Insulin Human Lispro (Humalog) 0 units SC .BEDTIME SLIDING SC PRN PRN Reason: Bedtime Correctional Scale Lorazepam (Ativan) 2 mg SLOW IVP Q1H PRN PRN Reason: Breakthrough agitation Stop: 04/15/19 09:14 Magnesium Oxide (Magnesium Oxide) 400 mg PO BIDPRN PRN PRN Reason: FOR SERUM MAG 1.4 - 2.0 Magnesium Oxide (Magnesium Oxide) 800 mg PO PRN PRN PRN Reason: FOR SERUM MAG < 1.4 Metformin HCl (Glucophage) 1,000 mg PO BID[facility] Last Admin: 03/18/19 07:38 Dose: 1,000 mg Miscellaneous Medication (Pharmacy To Dose) 0 each PO PRN PRN PRN Reason: PHARMACY TO DOSE Miscellaneous Medication (Phos-Nak) 1 pkt PO TIDPRN PRN PRN Reason: FOR PHOS LEVEL 1.0 - 1.8 Miscellaneous Medication (Phos-Nak) 2 pkt PO TIDPRN PRN PRN Reason: FOR PHOS LEVEL 0.5 - 1.0 Morphine Sulfate (Morphine) 2 mg SLOW IVP Q1H PRN PRN Reason: BREAKTHROUGH PAIN/Agitation Stop: 04/15/19 09:14 Nystatin (Mycostatin Powder) 0 gm TOP BID [facility] Last Admin: 03/18/19 07:39 Dose: 1 applic Ondansetron HCl (Zofran Odt) 4 mg PO Q6H PRN PRN Reason: Nausea/Vomiting Ondansetron HCl (Zofran) 4 mg IVP Q6H PRN PRN Reason: Nausea/Vomiting Potassium Chloride (K-Dur) 40 meq PO ASDIR PRN PRN Reason: FOR SERUM K+ 2.5 - 3.5 Potassium Chloride (Klor-Con) 40 meq PER TUBE ASDIR PRN PRN Reason: FOR SERUM K+ 2.5-3.5 Pramipexole Dihydrochloride (Mirapex) 0.5 mg PO DAILY [facility] Last Admin: 03/18/19 07:44 Dose: 0.5 mg Propofol (Diprivan) 1,000 mg IV INF PRN; Protocol PRN Reason: TO ACHIEVE GOAL RASS Stop: 04/15/19 09:14 Last Admin: 03/18/19 12:40 Dose: 1,000 mg Propofol (Diprivan Bolus) 20 mg IV Q5MIN PRN PRN Reason: BREAKTHROUGH AGITATION Stop: 04/15/19 09:14 Pyridostigmine [place] (Mestinon) 60 mg PO TID [facility] Last Admin: 03/18/19 15:39 Dose: 60 mg Sodium Chloride (Flush - Normal Saline) 10 ml IVF Q12HR PRN PRN Reason: Saline Flush Last Admin: 03/14/19 08:40 Dose: 10 ml Sodium Chloride (Flush - Normal Saline) 10 ml IVF PRN PRN PRN Reason: Saline Flush Trospium (Trospium) 20 mg PO BID [facility] Last Admin: 03/18/19 07:40 Dose: 20 mg Venlafaxine HCl (Effexor Xr) 75 mg PO DAILY [facility] Last Admin: 03/18/19 07:40 Dose: 75 mg Vital Signs & Weight: Vital Signs Temp Pulse Resp BP 03/18/19 14:29 92 96/67 03/18/19 14:00 21 H 03/18/19 12:00 99.4 F 14 03/18/19 10:35 98 108/87 03/18/19 10:00 22 H 03/18/19 08:00 20 03/18/19 07:23 97 88/65 L 03/18/19 07:00 99.0 F 03/18/19 06:00 16 Admit Weight 237 lb 4.8 oz Weight 253 lb - Physical Exam HEENT: mucus membranes moist Neck: supple neck, midline trachea Cardiac: regular rate and rhythm Lungs: clear to auscultation, normal breath sounds, ventilated respirations Abdomen: soft - Labs Result Diagrams: 03/18/19 03:45 03/18/19 03:45 Troponin/CKMB Troponin I 0.117 ng/mL (< 0.028) H 03/16/19 17:53 - Telemetry Sinus rhythms and dysrhythmias: sinus rhythm - Assessment/Plan Assessment/Plan: 1. Atrial arrhythmias -atrial flutter initially then atrial tachycardia - could not tolerate multaq, then attempted flecainide but resp status declined which is likely unrelated. Now on IV amiodarone 2. Pulmonary edema -recurrent flash pulm. edema - intubated 3. Respiratory failure 4. ALS 5. Mild cardiomyopathy -LVEF moderate-severely reduced by echo on 03/16/19 which was performed while HR was 150bpm Continue amiodarone. Family discussing treatment options. Will continue to monitor.
[2019-03-18] MEDS ORDERED: B & O PR PRN (19:19)
--- NOTE | 2019-03-18 19:24 | PDOC.HOSPP ---
- Subjective Encounter Date: 03/18/19 Encounter Time: 16:00 Subjective: f/u resp failure, progressive ALS and currently unweanable. Receiving TF's with Vital HP @ 40ml/h. Family contemplating withdrawal of care in the next 4-5 days. - Objective Vital Signs & Weight: Vital Signs (12 hours) Temp Pulse Resp BP 03/18/19 18:22 94 106/67 03/18/19 18:00 16 03/18/19 17:00 99.5 F 03/18/19 16:00 13 03/18/19 14:29 92 96/67 03/18/19 14:00 21 H 03/18/19 12:00 99.4 F 14 03/18/19 10:35 98 108/87 03/18/19 10:00 22 H 03/18/19 08:00 20 03/18/19 07:23 97 88/65 L Weight Admit Weight 237 lb 4.8 oz Weight 253 lb Most Recent Monitor Data Heart Rate from ECG 94 NIBP 106/67 NIBP BP-Mean 80 Respiration from ECG 18 SpO2 99 I&O: 03/17/19 03/18/19 03/19/19 06:59 06:59 06:59 Intake Total 1303 1871 1246 Output Total 947 1680 380 Balance 356 191 866 Result Diagrams: 03/18/19 03:45 03/18/19 03:45 Additional Labs: Accuchecks 03/18/19 03/18/19 03/17/19 12:50 05:36 20:05 POC Glucose 166 H 160 H 144 H Microbiology 03/10/19 14:46 Nasal swab Influenza Types A,B Direct EIA - Final 03/10/19 14:08 Urine Suprapubic catheter Urine Culture - Final Enterococcus faecalis Staphylococcus aureus 03/10/19 15:04 Venous blood - Left Hand Blood Culture - Preliminary NO GROWTH AT 48 HOURS 03/10/19 14:16 Venous blood - Left Hand Blood Culture - Preliminary NO GROWTH AT 48 HOURS Laboratory Tests 03/10/19 03/10/19 03/11/19 14:16 14:17 04:06 WBC 6.6 Lactic Acid 2.0 Magnesium B-Natriuretic Peptide 421.8 H 03/12/19 03/13/19 03/16/19 05:20 02:20 00:44 WBC 7.2 Lactic Acid 5.4 H* Magnesium 1.6 B-Natriuretic Peptide Radiology Reviewed by me: Yes (PCXR - bilat effusions, atelectasis and infiltrates, tube in position) EKG Reviewed by me: Yes (Tele - Atrial tach, intermittent SR) Hospitalist ROS - Medication Medications: Active Medications Generic Name Dose Route Start Last Admin Trade Name Freq PRN Reason Stop Dose Admin Acetaminophen 650 mg 03/10/19 17:39 03/14/19 04:30 Tylenol PO 650 mg Q4H PRN Administration Headache/Fever/Mild Pain (1-3) Albuterol/Ipratropium 3 ml 03/11/19 10:20 03/16/19 07:58 Duoneb NEB 3 ml [id number] PRN Administration SOB &/or Wheezing Apixaban 5 mg 03/12/19 09:00 03/18/19 07:44 Eliquis PO 5 mg BID [facility] Administration Aspirin 81 mg 03/12/19 09:00 03/18/19 07:38 Aspirin Chewable PO 81 mg DAILY [facility] Administration Famotidine 20 mg 03/10/19 21:00 03/18/19 07:39 Pepcid SLOW IVP 20 mg Q12HR [facility] Administration Ferrous Sulfate 325 mg 03/11/19 21:00 03/18/19 07:38 Feosol PO Not Given BID [facility] Furosemide 20 mg 03/12/19 09:00 03/18/19 07:38 Lasix PO 20 mg DAILY [facility] Administration Potassium Chloride 40 meq/ 100 mls @ 50 mls/hr 03/16/19 09:13 03/18/19 05:26 Device IVPB 100 mls ASDIR PRN Administration FOR SERUM K+ 2.5 - 3.5 Magnesium Sulfate 1 gm/ Sodium 102 mls @ 102 mls/hr 03/16/19 09:13 03/16/19 14:32 Chloride IV 102 mls PRN PRN Administration MAG LEVEL 1.4 - 2.0 Amiodarone HCl 450 mg/ 259 mls @ 0 mls/hr 03/16/19 17:15 03/18/19 09:34 Dextrose/Water IVPB 259 mls INF SHIRIN Administration Protocol Per Protocol Levofloxacin 500 mg/ Device 100 mls @ 100 mls/hr 03/16/19 23:59 03/18/19 01: 17 IVPB 100 mls 2359 SHIRIN Administration Insulin Human Lispro 0 units 03/10/19 17:44 03/18/19 12:50 Humalog SC 2 unit .MILD SLIDING SCALE PRN Administration Mild Correctional Scale Metformin HCl 1,000 mg 03/11/19 17:00 03/18/19 17:39 Glucophage PO 1,000 mg BID-WM [facility] Administration Nystatin 0 gm 03/14/19 21:00 03/18/19 07:39 Mycostatin Powder TOP 1 applic BID [facility] Administration Pramipexole Dihydrochloride 0.5 mg 03/12/19 09:00 03/18/19 07:44 Mirapex PO 0.5 mg DAILY [facility] Administration Propofol 1,000 mg 03/16/19 09:14 03/18/19 12:40 Diprivan IV 04/15/19 09:14 1,000 mg INF PRN Administration TO ACHIEVE GOAL RASS Protocol Pyridostigmine [place] 60 mg 03/11/19 15:00 03/18/19 15:39 Mestinon PO 60 mg TID [facility] Administration Sodium Chloride 10 ml 03/10/19 17:39 03/14/19 08:40 Flush - Normal Saline IVF 10 ml Q12HR PRN Administration Saline Flush Trospium 20 mg 03/11/19 21:00 03/18/19 07:40 Trospium PO 20 mg BID [facility] Administration Venlafaxine HCl 75 mg 03/12/19 09:00 03/18/19 07:40 Effexor Xr PO 75 mg DAILY [facility] Administration - Exam General - other findings: sedate on mech vent ENT: normocephalic atraumatic, no oropharyngeal lesions ENT - other findings: ETT in place Neck: supple, symmetric, no JVD, no thyromegaly Heart: RRR, no gallops, no rubs, normal peripheral pulses Respiratory - other findings: diminished bilat, coarse sounds in bases Gastrointestinal: soft, non-distended, normal bowel sounds, no palpable masses Extremities: no cyanosis Extremities - other findings: discoloration to bilat feet Neurological - other findings: unresponsive on mech vent/sedate Psychiatric: somnolent Hosp A/P (1) Acute respiratory failure with hypoxia Code(s): J96.01 - ACUTE RESPIRATORY FAILURE WITH HYPOXIA Status: Acute Plan: Multifactorial including pulm edema, continue SIMV, currently unweanable (2) Atrial fibrillation with RVR Code(s): I48.91 - UNSPECIFIED ATRIAL FIBRILLATION Status: Acute Plan: Rate improved, continue Amiodarone gtt, Eliquis 5mg BID (3) Flash pulmonary edema Code(s): J81.0 - ACUTE PULMONARY EDEMA Status: Acute Plan: Continue pulmonary support, Lasix 20mg po daily (4) UTI (urinary tract infection) due to urinary indwelling catheter Code(s): T83.511A - I/I REACT D/T INDWELLING URETHRAL CATHETER, INIT; N39.0 - URINARY TRACT INFECTION, SITE NOT SPECIFIED Status: Acute Plan: Continue Levaquin (5) ALS (amyotrophic lateral sclerosis) Code(s): G12.21 - AMYOTROPHIC LATERAL SCLEROSIS Status: Chronic Plan: Appears to progressive, Palliative care, Family contemplating withdrawal of care - 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
[2019-03-18 20:37] LABS: Hemoglobin 12.2 g/dL (12.0-16.0); Platelet Count 253 thou/uL (130-400)
[2019-03-19] MEDS: Propofol 1,000 MG/100 ML VIAL IV PRN ×3 (03:13→17:18)
[2019-03-19 04:26] LABS: #Eosinphils 0.2 thou/uL (0.0-0.7); #Lymphocytes 0.8 thou/uL (1.20-3.40); #Monocytes 0.7 thou/uL (0.11-0.59); #Neutrophils 7.6 thou/uL (1.40-6.50); %Basophils 0.4 % (0.0-1.0); %Eosinophils 1.6 % (0.0-10.0); %Lymphocytes 8.9 % (21.0-51.0); %Neutrophils 82.2 % (42.0-75.0); Hemoglobin 12.6 g/dL (12.0-16.0); Mean Corpuscular HGB CONC 33.3 g/dL (32.0-36.0); Mean Corpuscular Hemoglobin 29.6 pg (27.0-31.0); Mean Corpuscular Volume 88.8 fL (78.0-98.0); Mean Platelet Volume 8.3 fL (7.4-10.4); Platelet Count 254 thou/uL (130-400); RBC Distribution Width 16.2 % (11.5-14.5); Red Blood Cell (RBC) Count 4.27 mill/uL (4.20-5.40); White Blood Cell (WBC) Count 9.2 thou/uL (4.8-10.8)
[2019-03-19 04:45] LABS: Anion Gap 13 mmol/L (10-20); BUN (Urea Nitrogen) 10 mg/dL (9.8-20.1); Calc. Creatinine Clearance 135 mL/min (70-130); Calcium 8.4 mg/dL (7.8-10.44); Carbon Dioxide 26 mmol/L (23-31); Chloride 100 mmol/L (98-107); Estimated GFR-MDRD 81; Glucose 157 mg/dL (80-115); Potassium 3.5 mmol/L (3.5-5.1); Sodium 135 mmol/L (136-145)
[2019-03-19] MEDS: HumaLOG 300 UNITS/3 ML VIAL SC PRN ×2 (05:37→11:11)
[2019-03-19] MEDS ORDERED: Furosemide 40 MG/4 ML VIAL SLOW IVP SCH (08:45)
--- NOTE | 2019-03-19 09:13 | PRG ---
DATE OF SERVICE: 03/19/2019 SUBJECTIVE: The patient is doing about the same. There have been no changes. OBJECTIVE: VITAL SIGNS: Temperature is 99.0, pulse is 82, blood pressure is 91/59. Currently, on amiodarone drip. Intake for 24 hours 2604, output 850. HEENT: Endotracheal tube in place. NECK: No JVD. CHEST: Clear anteriorly. CARDIAC: S1 and S2. Regular. ABDOMEN: Soft. EXTREMITIES: No edema. IMAGING DATA: Chest x-ray showed some pulmonary edema. ET tube was in good position. LABORATORY DATA: White blood cell count 9.2, hematocrit 37.9, and platelet count 254. Sodium 135, potassium 3.5, chloride 100, CO2 of 26, BUN 10, creatinine 0.7, glucose 157. ASSESSMENT: 1. Amyotrophic lateral sclerosis. 2. Respiratory failure, requiring mechanical ventilation. 3. Some component of fluid overload. PLAN: 1. I will give her one dose of diuretics. 2. Family is leaning towards withdrawal of care on Friday. I told them they could take their time as this is definitely a big decision. Job ID: [id number]
[2019-03-19] MEDS: metFORMIN 500 MG TAB PO SCH ×2 (09:20→16:04)
[2019-03-19] MEDS: Ferrous Sulfate 325 MG TAB PO SCH ×2 (09:21→20:36)
[2019-03-19] MEDS: Aspirin Chewable 81 MG TAB PO SCH (09:21)
[2019-03-19] MEDS: Famotidine/PF 20 mg/2ml Vial SLOW IVP SCH ×2 (09:21→20:36)
[2019-03-19] MEDS: Pyridostigmine Bromide IR 60 MG TAB PO SCH ×3 (09:22→20:36)
[2019-03-19] MEDS: Venlafaxine HCl XR 75 MG CAP PO SCH (09:22)
[2019-03-19] MEDS: Trospium 20 MG TAB PO SCH ×2 (09:23→20:36)
[2019-03-19] MEDS: Nystatin Powder 15 GM BOT TOP SCH ×2 (09:24→20:36)
[2019-03-19] MEDS: Apixaban 5 MG TAB PO SCH ×2 (09:24→20:36)
[2019-03-19] MEDS: Pramipexole Di-HCl 0.25 MG TAB PO SCH (09:32)
--- NOTE | 2019-03-19 09:57 | PRG ---
DATE OF SERVICE: 03/19/2019 SUBJECTIVE: Ms. Rebolledo remains intubated on the ventilator. Her heart rate is controlled. She is on intravenous amiodarone. OBJECTIVE: VITAL SIGNS: Blood pressure is 90/50, pulse is in the 80s, it looks like it is mostly atrial fibrillation with occasional sinus beats. ASSESSMENT: 1. Atrial arrhythmias. 2. Multiorgan disease as outlined previously. PLAN: Continue intravenous amiodarone for now. Family is making decisions about code status. Dr. Harden available this weekend if needed. Job ID: [id number]
--- NOTE | 2019-03-19 09:58 | RAD ---
PORTABLE AP CHST XRAY: HISTORY: Pneumonia. COMPARISON: 03/18/2019. FINDINGS: Endotracheal tube, nasogastric tube, and left internal jugular vein central venous catheter remain in place and unchanged in position. Bilateral pleural effusions and associated passive atelectasis are again noted. There is a hazy density seen in the right mid lung zone which could be related to atel ectasis or a developing area of pneumonitis. Continued followup is suggested. Cardiac silhouette re edi enlarged. Pulmonary vasculature is at the upper limits of normal. No other interval change. IMPRESSION: 1. Bilateral pleural effusions and associated atelectasis similar to prior exam. 2. Minimal hazy and patchy density right mid lung zone which could be related to either atelectasis or developing area of pneumonitis. Continued followup is recommended. POS: OFF
[2019-03-19] MEDS: Amiodarone 450 MG in Dextrose 5% in Water 250 ML IVPB SCH ×2 (13:04)
--- NOTE | 2019-03-19 14:05 | PDOC.CPN ---
- Subjective Date: 03/19/19 Time: 14:04 Interval history: remains intubated and sedated. On IV amiodarone for arrhythmia suppression ( AFlutter and A tach). No significant changes in patient condition overnight. - Review of Systems ROS unobtainable: due to endotracheal tube - Objective Allergies/Adverse Reactions: Allergies Allergy/AdvReac Type Severity Reaction Status Date / Time No Known Allergies Allergy Verified 03/10/19 19:19 Visit Medications: Current Medications Acetaminophen (Tylenol) 650 mg PO Q4H PRN PRN Reason: Headache/Fever/Mild Pain (1-3) Last Admin: 03/14/19 04:30 Dose: 650 mg Acetaminophen (Tylenol) 650 mg [place] Q4H PRN PRN Reason: Headache/Fever/Mild Pain (1-3) Albuterol/Ipratropium (Duoneb) 3 ml NEB [id number] PRN PRN Reason: SOB &/or Wheezing Last Admin: 03/16/19 07:58 Dose: 3 ml Apixaban (Eliquis) 5 mg PO BID [facility] Last Admin: 03/19/19 09:24 Dose: 5 mg Aspirin (Aspirin Chewable) 81 mg PO DAILY [facility] Last Admin: 03/19/19 09:21 Dose: 81 mg [place] Alkaloids/Opium (B & O) 60 mg [place] BIDPRN PRN PRN Reason: Bladder Spasms Dextrose/Water (Dextrose 50%) 25 gm SLOW IVP PRN PRN PRN Reason: Hypoglycemia Famotidine (Pepcid) 20 mg SLOW IVP Q12HR [facility] Last Admin: 03/19/19 09:21 Dose: 20 mg Ferrous Sulfate (Feosol) 325 mg PO BID [facility] Last Admin: 03/19/19 09:21 Dose: 325 mg Glucagon (Glucagon) 1 mg IM PRN PRN PRN Reason: Hypoglycemia Dextrose/Water (D5w) 1,000 mls @ 0 mls/hr IV .Q0M PRN PRN Reason: Hypoglycemia Potassium Chloride 40 meq/ (Sodium Chloride) 270 mls @ 135 mls/hr IVPB ASDIR PRN PRN Reason: FOR SERUM K+ 2.5 - 3.5 Potassium Chloride 40 meq/ (Device) 100 mls @ 50 mls/hr IVPB ASDIR PRN PRN Reason: FOR SERUM K+ 2.5 - 3.5 Last Admin: 03/18/19 05:26 Dose: 100 mls Magnesium Sulfate 1 gm/ Sodium (Chloride) 102 mls @ 102 mls/hr IV PRN PRN PRN Reason: MAG LEVEL 1.4 - 2.0 Last Admin: 03/16/19 14:32 Dose: 102 mls Magnesium Sulfate 2 gm/ Device 50 mls @ 50 mls/hr IVPB ASDIR PRN PRN Reason: MAGNESIUM < 1.4 Potassium Phosphate 9 mmol/ (Sodium Chloride) 103 mls @ 25.75 mls/hr IVPB ASDIR PRN PRN Reason: Phosphate 1.0-1.8 Potassium Phosphate 12 mmol/ (Sodium Chloride) 254 mls @ 63.5 mls/hr IV ASDIR PRN PRN Reason: Serum phosphate 0.5-0.9 Potassium Phosphate 15 mmol/ (Sodium Chloride) 255 mls @ 63.75 mls/hr IV ASDIR PRN PRN Reason: Serum Phos < 0.5 Fentanyl Citrate 2,000 mcg/ (Sodium Chloride) 100 mls @ 0 mls/hr IV INF [facility]; Protocol Stop: 04/15/19 09:14 Fentanyl Citrate (Fentanyl Bolus) 250 mls @ 0 mls/hr IVPB PRN PRN PRN Reason: Breakthrough pain/agitation Stop: 04/15/19 09:14 Amiodarone HCl 450 mg/ (Dextrose/Water) 259 mls @ 0 mls/hr IVPB INF [facility]; Protocol Last Admin: 03/19/19 13:04 Dose: 259 mls Levofloxacin 500 mg/ Device 100 mls @ 100 mls/hr IVPB 2359 [facility] Last Admin: 03/19/19 00:00 Dose: 100 mls Insulin Human Lispro (Humalog) 0 units SC .MILD SLIDING SCALE PRN PRN Reason: Mild Correctional Scale Last Admin: 03/19/19 11:11 Dose: 2 unit Insulin Human Lispro (Humalog) 0 units SC .BEDTIME SLIDING SC PRN PRN Reason: Bedtime Correctional Scale Lorazepam (Ativan) 2 mg SLOW IVP Q1H PRN PRN Reason: Breakthrough agitation Stop: 04/15/19 09:14 Magnesium Oxide (Magnesium Oxide) 400 mg PO BIDPRN PRN PRN Reason: FOR SERUM MAG 1.4 - 2.0 Magnesium Oxide (Magnesium Oxide) 800 mg PO PRN PRN PRN Reason: FOR SERUM MAG < 1.4 Metformin HCl (Glucophage) 1,000 mg PO BID-WM [facility] Last Admin: 03/19/19 09:20 Dose: 1,000 mg Miscellaneous Medication (Pharmacy To Dose) 0 each PO PRN PRN PRN Reason: PHARMACY TO DOSE Miscellaneous Medication (Phos-Nak) 1 pkt PO TIDPRN PRN PRN Reason: FOR PHOS LEVEL 1.0 - 1.8 Miscellaneous Medication (Phos-Nak) 2 pkt PO TIDPRN PRN PRN Reason: FOR PHOS LEVEL 0.5 - 1.0 Morphine Sulfate (Morphine) 2 mg SLOW IVP Q1H PRN PRN Reason: BREAKTHROUGH PAIN/Agitation Stop: 04/15/19 09:14 Nystatin (Mycostatin Powder) 0 gm TOP BID [facility] Last Admin: 03/19/19 09:24 Dose: 1 applic Ondansetron HCl (Zofran Odt) 4 mg PO Q6H PRN PRN Reason: Nausea/Vomiting Ondansetron HCl (Zofran) 4 mg IVP Q6H PRN PRN Reason: Nausea/Vomiting Potassium Chloride (K-Dur) 40 meq PO ASDIR PRN PRN Reason: FOR SERUM K+ 2.5 - 3.5 Potassium Chloride (Klor-Con) 40 meq PER TUBE ASDIR PRN PRN Reason: FOR SERUM K+ 2.5-3.5 Pramipexole Dihydrochloride (Mirapex) 0.5 mg PO DAILY [facility] Last Admin: 03/19/19 09:32 Dose: 0.5 mg Propofol (Diprivan) 1,000 mg IV INF PRN; Protocol PRN Reason: TO ACHIEVE GOAL RASS Stop: 04/15/19 09:14 Last Admin: 03/19/19 11:04 Dose: 1,000 mg Propofol (Diprivan Bolus) 20 mg IV Q5MIN PRN PRN Reason: BREAKTHROUGH AGITATION Stop: 04/15/19 09:14 Pyridostigmine [place] (Mestinon) 60 mg PO TID [facility] Last Admin: 03/19/19 09:22 Dose: 60 mg Sodium Chloride (Flush - Normal Saline) 10 ml IVF Q12HR PRN PRN Reason: Saline Flush Last Admin: 03/14/19 08:40 Dose: 10 ml Sodium Chloride (Flush - Normal Saline) 10 ml IVF PRN PRN PRN Reason: Saline Flush Trospium (Trospium) 20 mg PO BID [facility] Last Admin: 03/19/19 09:23 Dose: 20 mg Venlafaxine HCl (Effexor Xr) 75 mg PO DAILY [facility] Last Admin: 03/19/19 09:22 Dose: 75 mg Vital Signs & Weight: Vital Signs Temp Pulse Resp BP Pulse Ox 03/19/19 13:00 98.9 F 03/19/19 11:58 17 03/19/19 10:30 87 114/69 03/19/19 10:00 19 03/19/19 08:00 16 100 03/19/19 07:50 81 99/69 03/19/19 07:00 99 F 03/19/19 06:00 16 03/19/19 04:00 99.4 F 17 Admit Weight 237 lb 4.8 oz Weight 253 lb - Physical Exam General: no apparent distress HEENT: mucus membranes moist Neck: supple neck, midline trachea Cardiac: irregularly regular Lungs: clear to auscultation Abdomen: soft - Labs Result Diagrams: 03/19/19 04:15 03/19/19 04:15 Troponin/CKMB Troponin I 0.117 ng/mL (< 0.028) H 03/16/19 17:53 - Telemetry Sinus rhythms and dysrhythmias: sinus rhythm (frequent PACS/MAT) - Assessment/Plan Assessment/Plan: 1. Atrial arrhythmias -atrial flutter initially then atrial tachycardia - could not tolerate multaq, then attempted flecainide but resp status declined which is likely unrelated. Now on IV amiodarone 2. Pulmonary edema -recurrent flash pulm. edema - intubated 3. Respiratory failure 4. ALS 5. Mild cardiomyopathy -LVEF moderate-severely reduced by echo on 03/16/19 which was performed while HR was 150bpm Continue amiodarone. Per nursing staff, family plans to withdraw care friday. EP signing off.
--- NOTE | 2019-03-19 20:42 | PDOC.HOSPP ---
- Subjective Encounter Date: 03/19/19 Encounter Time: 14:33 Subjective: 68 y/o female with ALS complicated with urinary retention s/p suprapubic catheter admitted with worsening sob.Found to have atrail fib/flutter. Impression of pulmonary edema from CHF exacerbation was made and patient was treated with diuretic and BIPAP with improvement. She however later had acute worsening of symptoms necesitating intubation. Patient is still intubated. - Objective Vital Signs & Weight: Vital Signs (12 hours) Temp Pulse Resp BP Pulse Ox 03/19/19 20:00 100 03/19/19 19:00 99.9 F H 17 03/19/19 18:29 129 H 123/78 03/19/19 18:00 14 03/19/19 16:00 99.3 F 13 03/19/19 14:38 83 108/59 L 03/19/19 14:00 17 03/19/19 13:00 98.9 F 03/19/19 11:58 17 03/19/19 10:30 87 114/69 03/19/19 10:00 19 Weight Admit Weight 237 lb 4.8 oz Weight 253 lb Most Recent Monitor Data Heart Rate from ECG 89 NIBP 84/49 NIBP BP-Mean 60 Respiration from ECG 19 SpO2 100 I&O: 03/18/19 03/19/19 03/20/19 06:59 06:59 06:59 Intake Total 1871 2604 521 Output Total 2313 699 5140 Balance 191 1754 -2186 Result Diagrams: 03/19/19 04:15 03/19/19 04:15 Additional Labs: Accuchecks 03/19/19 03/19/19 03/19/19 16:08 11:10 05:37 POC Glucose 141 H 165 H 178 H 03/18/19 03/18/19 22:05 17:41 POC Glucose 137 H 158 H Hospitalist ROS - Medication Medications: Active Medications Generic Name Dose Route Start Last Admin Trade Name Freq PRN Reason Stop Dose Admin Acetaminophen 650 mg 03/10/19 17:39 03/14/19 04:30 Tylenol PO 650 mg Q4H PRN Administration Headache/Fever/Mild Pain (1-3) Albuterol/Ipratropium 3 ml 03/11/19 10:20 03/16/19 07:58 Duoneb NEB 3 ml [id number] PRN Administration SOB &/or Wheezing Apixaban 5 mg 03/12/19 09:00 03/19/19 09:24 Eliquis PO 5 mg BID SHIRIN Administration Aspirin 81 mg 03/12/19 09:00 03/19/19 09:21 Aspirin Chewable PO 81 mg DAILY SHIRIN Administration Famotidine 20 mg 03/10/19 21:00 03/19/19 09:21 Pepcid SLOW IVP 20 mg Q12HR SHIRIN Administration Ferrous Sulfate 325 mg 03/11/19 21:00 03/19/19 09:21 Feosol PO 325 mg BID SHIRIN Administration Potassium Chloride 40 meq/ 100 mls @ 50 mls/hr 03/16/19 09:13 03/18/19 05:26 Device IVPB 100 mls ASDIR PRN Administration FOR SERUM K+ 2.5 - 3.5 Magnesium Sulfate 1 gm/ Sodium 102 mls @ 102 mls/hr 03/16/19 09:13 03/16/19 14:32 Chloride IV 102 mls PRN PRN Administration MAG LEVEL 1.4 - 2.0 Amiodarone HCl 450 mg/ 259 mls @ 0 mls/hr 03/16/19 17:15 03/19/19 13:04 Dextrose/Water IVPB 259 mls INF SHIRIN Administration Protocol Per Protocol Levofloxacin 500 mg/ Device 100 mls @ 100 mls/hr 03/16/19 23:59 03/19/19 00: 00 IVPB 100 mls 2359 SHIRIN Administration Insulin Human Lispro 0 units 03/10/19 17:44 03/19/19 11:11 Humalog SC 2 unit .MILD SLIDING SCALE PRN Administration Mild Correctional Scale Metformin HCl 1,000 mg 03/11/19 17:00 03/19/19 16:04 Glucophage PO 1,000 mg BID-WM SHIRIN Administration Nystatin 0 gm 03/14/19 21:00 03/19/19 09:24 Mycostatin Powder TOP 1 applic BID SHIRIN Administration Pramipexole Dihydrochloride 0.5 mg 03/12/19 09:00 03/19/19 09:32 Mirapex PO 0.5 mg DAILY SHIRIN Administration Propofol 1,000 mg 03/16/19 09:14 03/19/19 17:18 Diprivan IV 04/15/19 09:14 1,000 mg INF PRN Administration TO ACHIEVE GOAL RASS Protocol Pyridostigmine [place] 60 mg 03/11/19 15:00 03/19/19 15:07 Mestinon PO 60 mg TID SHIRIN Administration Sodium Chloride 10 ml 03/10/19 17:39 03/14/19 08:40 Flush - Normal Saline IVF 10 ml Q12HR PRN Administration Saline Flush Trospium 20 mg 03/11/19 21:00 03/19/19 09:23 Trospium PO 20 mg BID SHIRIN Administration Venlafaxine HCl 75 mg 03/12/19 09:00 03/19/19 09:22 Effexor Xr PO 75 mg DAILY SHIRIN Administration - Exam General - other findings: sedated ENT: normocephalic atraumatic Heart: irregular Respiratory - other findings: ventilator transmitted sound noted Gastrointestinal: soft, non-distended Gastrointestinal - other findings: obese. suprapubic catheter noted Extremities: 1+ LE edema Musculoskeletal - other findings: lower extremity atrophy noted Psychiatric - other findings: sedated Hosp A/P (1) Acute respiratory failure with hypoxia Code(s): J96.01 - ACUTE RESPIRATORY FAILURE WITH HYPOXIA Status: Acute (2) CHF exacerbation Code(s): I50.9 - HEART FAILURE, UNSPECIFIED Status: Acute (3) Atrial fibrillation with RVR Code(s): I48.91 - UNSPECIFIED ATRIAL FIBRILLATION Status: Acute (4) Atrial flutter with rapid ventricular response Code(s): I48.92 - UNSPECIFIED ATRIAL FLUTTER Status: Acute (5) Flash pulmonary edema Code(s): J81.0 - ACUTE PULMONARY EDEMA Status: Acute (6) Hypokalemia Code(s): E87.6 - HYPOKALEMIA Status: Acute (7) UTI (urinary tract infection) due to urinary indwelling catheter Code(s): T83.511A - I/I REACT D/T INDWELLING URETHRAL CATHETER, INIT; N39.0 - URINARY TRACT INFECTION, SITE NOT SPECIFIED Status: Acute (8) ALS (amyotrophic lateral sclerosis) Code(s): G12.21 - AMYOTROPHIC LATERAL SCLEROSIS Status: Chronic (9) Diabetes mellitus Code(s): E11.9 - TYPE 2 DIABETES MELLITUS WITHOUT COMPLICATIONS Status: Chronic (10) COPD (chronic obstructive pulmonary disease) Status: Chronic (11) DMII (diabetes mellitus, type 2) Status: Chronic - Plan Continue antibiotics, diuretics and amiodarone. Sedation and vent management as per pulm/Crtical care. Continue sliding scale insulin. Continue other supportive care. Urinary retention management as per urology.
[2019-03-20] MEDS: Amiodarone 450 MG in Dextrose 5% in Water 250 ML IVPB SCH ×2 (03:41→18:11)
[2019-03-20 05:18] LABS: #Eosinphils 0.1 thou/uL (0.0-0.7); #Lymphocytes 0.7 thou/uL (1.20-3.40); #Monocytes 0.5 thou/uL (0.11-0.59); %Basophils 0.2 % (0.0-1.0); %Eosinophils 1.7 % (0.0-10.0); %Lymphocytes 7.9 % (21.0-51.0); %Monocytes 6.4 % (0.0-10.0); %Neutrophils 83.8 % (42.0-75.0); Hemoglobin 11.5 g/dL (12.0-16.0); Mean Corpuscular HGB CONC 32.8 g/dL (32.0-36.0); Mean Corpuscular Hemoglobin 29.3 pg (27.0-31.0); Mean Corpuscular Volume 89.1 fL (78.0-98.0); Mean Platelet Volume 8.4 fL (7.4-10.4); Platelet Count 243 thou/uL (130-400); RBC Distribution Width 15.8 % (11.5-14.5); Red Blood Cell (RBC) Count 3.95 mill/uL (4.20-5.40); White Blood Cell (WBC) Count 8.3 thou/uL (4.8-10.8)
[2019-03-20 05:41] LABS: Anion Gap 10 mmol/L (10-20); BUN (Urea Nitrogen) 13 mg/dL (9.8-20.1); Calc. Creatinine Clearance 146 mL/min (70-130); Calcium 8.2 mg/dL (7.8-10.44); Carbon Dioxide 29 mmol/L (23-31); Chloride 101 mmol/L (98-107); Estimated GFR-MDRD 88; Glucose 179 mg/dL (80-115); Potassium 3.2 mmol/L (3.5-5.1); Sodium 137 mmol/L (136-145)
[2019-03-20] MEDS: HumaLOG 300 UNITS/3 ML VIAL SC PRN ×2 (06:21→18:10)
[2019-03-20] MEDS: Potassium Chloride 40 MEQ in Premix Bag 1 BAG IVPB PRN (06:21)
[2019-03-20] MEDS ORDERED: Norepinephrine 4 MG/4 ML VIAL ONE ×2 (06:47→06:48)
[2019-03-20 07:33] LABS: Actual Bicarbonate (HCO3a) 26.2 mEq/L (22-28); Base Excess (BEa) 1.3 mEq/L (-2.0 to +3.0); CO2 Tension 42.6 mmHg (35.0-45.0); Calcium, Ionized 1.16 mmol/L (1.12-1.30); Carboxyhemoglobin (COHb) 1.1 gm% (0.0-3.0); Hemoglobin (Hb) 12.5 g/dL (12.0-16.0); Potassium - ABG Lab 3.81 mmol/L (3.70-5.30); pH, Arterial 7.41 (7.35-7.45)
[2019-03-20 07:35] LABS: Puncture Site RRA
[2019-03-20] MEDS: Propofol 1,000 MG/100 ML VIAL IV PRN ×3 (07:37→20:46)
[2019-03-20] MEDS: metFORMIN 500 MG TAB PO SCH ×2 (07:38→17:14)
[2019-03-20] MEDS: Aspirin Chewable 81 MG TAB PO SCH (09:59)
[2019-03-20] MEDS: Pyridostigmine Bromide IR 60 MG TAB PO SCH ×3 (09:59→20:43)
[2019-03-20] MEDS: Famotidine/PF 20 mg/2ml Vial SLOW IVP SCH ×2 (09:59→20:43)
[2019-03-20] MEDS: Ferrous Sulfate 325 MG TAB PO SCH ×2 (09:59→20:43)
[2019-03-20] MEDS: Trospium 20 MG TAB PO SCH ×2 (10:00→20:43)
[2019-03-20] MEDS: Apixaban 5 MG TAB PO SCH ×2 (10:00→20:43)
[2019-03-20] MEDS: Venlafaxine HCl XR 75 MG CAP PO SCH (10:06)
[2019-03-20] MEDS: Nystatin Powder 15 GM BOT TOP SCH ×2 (10:08→20:43)
[2019-03-20] MEDS: Pramipexole Di-HCl 0.25 MG TAB PO SCH (10:19)
--- NOTE | 2019-03-20 13:03 | RAD ---
PORTABLE AP CHEST XRAY: HISTORY: Pneumonia. Followup evaluation. COMPARISON: 03/19/2019. FINDINGS: Endotracheal tube, nasogastric tube, and left internal jugular vein central venous catheter remain in place and unchanged in position. Bilateral pleural effusions and atelectasis are present. Cardiac silhouette is stable in size. There is mild pulmonary vascular congestion present. No other interva l change. IMPRESSION: 1. Lines and tubes stable in position. 2. Bilateral pleural effusions and atelectasis. 3. Minimal hazy density is seen in the right mid lung zone which may be related to atelectasis or fo danis area of pneumonitis. Continued followup is recommended. POS: OFF
--- NOTE | 2019-03-20 18:30 | PDOC.HOSPP ---
- Subjective Encounter Date: 03/20/19 Encounter Time: 16:28 Subjective: 68 y/o female with ALS complicated with urinary retention s/p suprapubic catheter admitted with worsening sob.Found to have atrail fib/flutter. Impression of pulmonary edema from CHF exacerbation was made and patient was treated with diuretic and BIPAP with improvement. She however later had acute worsening of symptoms necesitating intubation. Patient is still intubated and mechanically ventilated. - Objective Vital Signs & Weight: Vital Signs (12 hours) Pulse Resp BP Pulse Ox 03/20/19 18:00 15 03/20/19 16:00 15 03/20/19 15:36 80 91/66 03/20/19 14:00 14 03/20/19 13:44 83 88/58 L 03/20/19 12:00 12 03/20/19 10:40 81 125/81 03/20/19 10:00 17 03/20/19 08:08 78 93/62 03/20/19 08:00 15 97 Weight Admit Weight 237 lb 4.8 oz Weight 253 lb Most Recent Monitor Data Heart Rate from ECG 85 NIBP 92/63 NIBP BP-Mean 72 Respiration from ECG 14 SpO2 100 I&O: 03/19/19 03/20/19 03/21/19 06:59 06:59 06:59 Intake Total 2604 2089 60 Output Total 850 3117 Balance 1754 -1028 60 Result Diagrams: 03/20/19 05:00 03/20/19 05:00 Additional Labs: Accuchecks 03/20/19 03/19/19 11:59 21:17 POC Glucose 173 H 161 H Hospitalist ROS - Medication Medications: Active Medications Generic Name Dose Route Start Last Admin Trade Name Freq PRN Reason Stop Dose Admin Acetaminophen 650 mg 03/10/19 17:39 03/14/19 04:30 Tylenol PO 650 mg Q4H PRN Administration Headache/Fever/Mild Pain (1-3) Albuterol/Ipratropium 3 ml 03/11/19 10:20 03/16/19 07:58 Duoneb NEB 3 ml [id number] PRN Administration SOB &/or Wheezing Apixaban 5 mg 03/12/19 09:00 03/20/19 10:00 Eliquis PO 5 mg BID SHIRIN Administration Aspirin 81 mg 03/12/19 09:00 03/20/19 09:59 Aspirin Chewable PO 81 mg DAILY SHIRIN Administration Famotidine 20 mg 03/10/19 21:00 03/20/19 09:59 Pepcid SLOW IVP 20 mg Q12HR SHIRIN Administration Ferrous Sulfate 325 mg 03/11/19 21:00 03/20/19 09:59 Feosol PO 325 mg BID SHIRIN Administration Potassium Chloride 40 meq/ 100 mls @ 50 mls/hr 03/16/19 09:13 03/20/19 06:21 Device IVPB 100 mls ASDIR PRN Administration FOR SERUM K+ 2.5 - 3.5 Magnesium Sulfate 1 gm/ Sodium 102 mls @ 102 mls/hr 03/16/19 09:13 03/16/19 14:32 Chloride IV 102 mls PRN PRN Administration MAG LEVEL 1.4 - 2.0 Amiodarone HCl 450 mg/ 259 mls @ 0 mls/hr 03/16/19 17:15 03/20/19 18:11 Dextrose/Water IVPB 259 mls INF SHIRIN Administration Protocol Per Protocol Levofloxacin 500 mg/ Device 100 mls @ 100 mls/hr 03/16/19 23:59 03/19/19 23: 59 IVPB 100 mls 2359 SHIRIN Administration Insulin Human Lispro 0 units 03/10/19 17:44 03/20/19 18:10 Humalog SC 2 unit .MILD SLIDING SCALE PRN Administration Mild Correctional Scale Metformin HCl 1,000 mg 03/11/19 17:00 03/20/19 17:14 Glucophage PO 1,000 mg BID-WM SHIRIN Administration Nystatin 0 gm 03/14/19 21:00 03/20/19 10:08 Mycostatin Powder TOP 1 applic BID SHIRIN Administration Pramipexole Dihydrochloride 0.5 mg 03/12/19 09:00 03/20/19 10:19 Mirapex PO 0.5 mg DAILY SHIRIN Administration Propofol 1,000 mg 03/16/19 09:14 03/20/19 14:30 Diprivan IV 04/15/19 09:14 1,000 mg INF PRN Administration TO ACHIEVE GOAL RASS Protocol Pyridostigmine [place] 60 mg 03/11/19 15:00 03/20/19 15:22 Mestinon PO 60 mg TID SHIRIN Administration Sodium Chloride 10 ml 03/10/19 17:39 03/14/19 08:40 Flush - Normal Saline IVF 10 ml Q12HR PRN Administration Saline Flush Trospium 20 mg 03/11/19 21:00 03/20/19 10:00 Trospium PO 20 mg BID SHIRIN Administration Venlafaxine HCl 75 mg 03/12/19 09:00 03/20/19 10:06 Effexor Xr PO 75 mg DAILY SHIRIN Administration - Exam General Appearance: awake alert ENT: normocephalic atraumatic ENT - other findings: ET tube and NG tube in place Heart: RRR Respiratory - other findings: ventilator transmited breathsound heard in all lung zones Gastrointestinal: soft, non-distended Extremities: 1+ LE edema Neurological - other findings: sedated Hosp A/P (1) Acute respiratory failure with hypoxia Code(s): J96.01 - ACUTE RESPIRATORY FAILURE WITH HYPOXIA Status: Acute (2) CHF exacerbation Code(s): I50.9 - HEART FAILURE, UNSPECIFIED Status: Acute (3) Atrial fibrillation with RVR Code(s): I48.91 - UNSPECIFIED ATRIAL FIBRILLATION Status: Acute (4) Atrial flutter with rapid ventricular response Code(s): I48.92 - UNSPECIFIED ATRIAL FLUTTER Status: Acute (5) Flash pulmonary edema Code(s): J81.0 - ACUTE PULMONARY EDEMA Status: Acute (6) Hypokalemia Code(s): E87.6 - HYPOKALEMIA Status: Acute (7) UTI (urinary tract infection) due to urinary indwelling catheter Code(s): T83.511A - I/I REACT D/T INDWELLING URETHRAL CATHETER, INIT; N39.0 - URINARY TRACT INFECTION, SITE NOT SPECIFIED Status: Acute (8) ALS (amyotrophic lateral sclerosis) Code(s): G12.21 - AMYOTROPHIC LATERAL SCLEROSIS Status: Chronic (9) Diabetes mellitus Code(s): E11.9 - TYPE 2 DIABETES MELLITUS WITHOUT COMPLICATIONS Status: Chronic (10) COPD (chronic obstructive pulmonary disease) Status: Chronic (11) DMII (diabetes mellitus, type 2) Status: Chronic (12) Hypomagnesemia Code(s): E83.42 - HYPOMAGNESEMIA Status: Acute - Plan Continue antibiotics and amiodarone. Replete serum potassium and magnesium Sedation and vent management as per pulm/Crtical care. Continue sliding scale insulin. Continue other supportive care. Urinary retention management as per urology.
[2019-03-20] MEDS ORDERED: Magnesium Sulfate 4 GM in Sodium Chloride 0.9% 250 ML 250 ML IVPB SCH (19:15)
--- NOTE | 2019-03-20 20:33 | PRG ---
DATE OF SERVICE: 03/20/2019 SUBJECTIVE: Ms. Rebolledo is not moving and resting comfortably. Her hemodynamics have been stable. Family is contemplating withdrawing support this weekend. OBJECTIVE: VITAL SIGNS: Heart rates in 80s, oximetry is 97, blood pressure 90/ 76, respiratory rate is 18. LUNGS: Clear. HEART: Regular rhythm. ABDOMEN: Soft. EXTREMITIES: Without edema. LABORATORY DATA: White count 8.3, hemoglobin 11.5, platelets 243. Electrolytes are normal. Potassium is 3.2, glucose 179. She really does not need to continue with point of care glucoses, given the dismal prognosis with her ALS. IMPRESSION: ALS advanced, currently mechanically ventilated. We are awaiting family's decisions. We will stop doing daily blood gases. Her pH is 7.41, CO2 of 42, PO2 of 75. Critical care time is 35 minutes. Job ID: [id number] MTDD
[2019-03-21] MEDS: HumaLOG 300 UNITS/3 ML VIAL SC PRN (06:18)
[2019-03-21] MEDS: metFORMIN 500 MG TAB PO SCH ×2 (07:51→16:33)
[2019-03-21] MEDS: Pyridostigmine Bromide IR 60 MG TAB PO SCH ×3 (08:24→20:22)
[2019-03-21] MEDS: Famotidine/PF 20 mg/2ml Vial SLOW IVP SCH ×2 (08:24→20:22)
[2019-03-21] MEDS: Trospium 20 MG TAB PO SCH ×2 (08:24→20:22)
[2019-03-21] MEDS: Venlafaxine HCl XR 75 MG CAP PO SCH (08:24)
[2019-03-21] MEDS: Aspirin Chewable 81 MG TAB PO SCH (08:25)
[2019-03-21] MEDS: Ferrous Sulfate 325 MG TAB PO SCH ×2 (08:25→20:22)
[2019-03-21] MEDS: Nystatin Powder 15 GM BOT TOP SCH ×2 (08:26→20:25)
[2019-03-21] MEDS: Apixaban 5 MG TAB PO SCH ×2 (08:32→20:29)
[2019-03-21] MEDS: Pramipexole Di-HCl 0.25 MG TAB PO SCH (08:32)
[2019-03-21] MEDS: Amiodarone 450 MG in Dextrose 5% in Water 250 ML IVPB SCH (09:03)
[2019-03-21] MEDS: Propofol 1,000 MG/100 ML VIAL IV PRN ×2 (10:17→17:07)
--- NOTE | 2019-03-21 15:26 | PDOC.HOSPP ---
- Subjective Encounter Date: 03/21/19 Encounter Time: 11:23 Subjective: 68 y/o female with ALS complicated with urinary retention s/p suprapubic catheter admitted with worsening sob.Found to have atrail fib/flutter. Impression of pulmonary edema from CHF exacerbation was made and patient was treated with diuretic and BIPAP with improvement. She however later developed worsening respiratory status and intubated. Patient is still intubated, sedated and mechanically ventilated. No new problem. - Objective Vital Signs & Weight: Vital Signs (12 hours) Temp Pulse Resp BP Pulse Ox 03/21/19 14:00 13 03/21/19 13:06 78 110/63 03/21/19 12:00 98.8 F 18 03/21/19 10:35 78 121/71 03/21/19 10:00 14 03/21/19 08:00 16 03/21/19 07:52 74 126/65 03/21/19 07:11 97 03/21/19 07:00 97.5 F L 03/21/19 06:00 14 03/21/19 04:00 98.4 F 17 Weight Admit Weight 237 lb 4.8 oz Weight 253 lb Most Recent Monitor Data Heart Rate from ECG 79 NIBP 117/73 NIBP BP-Mean 87 Respiration from ECG 19 SpO2 98 I&O: 03/20/19 03/21/19 03/22/19 06:59 06:59 06:59 Intake Total 2089 2528 30 Output Total 3117 977 280 Balance -1028 1551 -250 Result Diagrams: 03/20/19 05:00 03/20/19 05:00 Additional Labs: Accuchecks 03/21/19 06:16 POC Glucose 175 H Hospitalist ROS - Medication Medications: Active Medications Generic Name Dose Route Start Last Admin Trade Name Freq PRN Reason Stop Dose Admin Acetaminophen 650 mg 03/10/19 17:39 03/14/19 04:30 Tylenol PO 650 mg Q4H PRN Administration Headache/Fever/Mild Pain (1-3) Albuterol/Ipratropium 3 ml 03/11/19 10:20 03/16/19 07:58 Duoneb NEB 3 ml [id number] PRN Administration SOB &/or Wheezing Apixaban 5 mg 03/12/19 09:00 03/21/19 08:32 Eliquis PO Not Given BID SHIRIN Aspirin 81 mg 03/12/19 09:00 03/21/19 08:25 Aspirin Chewable PO 81 mg DAILY SHIRIN Administration Famotidine 20 mg 03/10/19 21:00 03/21/19 08:24 Pepcid SLOW IVP 20 mg Q12HR SHIRIN Administration Ferrous Sulfate 325 mg 03/11/19 21:00 03/21/19 08:25 Feosol PO 325 mg BID SHIRIN Administration Potassium Chloride 40 meq/ 100 mls @ 50 mls/hr 03/16/19 09:13 03/20/19 06:21 Device IVPB 100 mls ASDIR PRN Administration FOR SERUM K+ 2.5 - 3.5 Magnesium Sulfate 1 gm/ Sodium 102 mls @ 102 mls/hr 03/16/19 09:13 03/16/19 14:32 Chloride IV 102 mls PRN PRN Administration MAG LEVEL 1.4 - 2.0 Amiodarone HCl 450 mg/ 259 mls @ 0 mls/hr 03/16/19 17:15 03/21/19 09:03 Dextrose/Water IVPB 259 mls INF SHIRIN Administration Protocol Per Protocol Levofloxacin 500 mg/ Device 100 mls @ 100 mls/hr 03/16/19 23:59 03/20/19 23: 14 IVPB 100 mls 2359 SHIRIN Administration Insulin Human Lispro 0 units 03/10/19 17:44 03/21/19 06:18 Humalog SC 2 unit .MILD SLIDING SCALE PRN Administration Mild Correctional Scale Metformin HCl 1,000 mg 03/11/19 17:00 03/21/19 07:51 Glucophage PO 1,000 mg BID-WM SHIRIN Administration Nystatin 0 gm 03/14/19 21:00 03/21/19 08:26 Mycostatin Powder TOP 1 applic BID SHIRIN Administration Pramipexole Dihydrochloride 0.5 mg 03/12/19 09:00 03/21/19 08:32 Mirapex PO 0.5 mg DAILY SHIRIN Administration Propofol 1,000 mg 03/16/19 09:14 03/21/19 10:17 Diprivan IV 04/15/19 09:14 1,000 mg INF PRN Administration TO ACHIEVE GOAL RASS Protocol Pyridostigmine [place] 60 mg 03/11/19 15:00 03/21/19 14:25 Mestinon PO 60 mg TID SHIRIN Administration Sodium Chloride 10 ml 03/10/19 17:39 03/14/19 08:40 Flush - Normal Saline IVF 10 ml Q12HR PRN Administration Saline Flush Trospium 20 mg 03/11/19 21:00 03/21/19 08:24 Trospium PO 20 mg BID SHIRIN Administration Venlafaxine HCl 75 mg 03/12/19 09:00 03/21/19 08:24 Effexor Xr PO 75 mg DAILY SHIRIN Administration - Exam General - other findings: sedated Eye: anicteric sclera ENT: normocephalic atraumatic ENT - other findings: ET and NG tubes in place Heart: RRR Respiratory - other findings: ventilator transmitted breast sound heard in all lung zones Gastrointestinal: soft, non-distended Extremities: 1+ LE edema Neurological - other findings: sedated Hosp A/P (1) Acute respiratory failure with hypoxia Code(s): J96.01 - ACUTE RESPIRATORY FAILURE WITH HYPOXIA Status: Acute (2) CHF exacerbation Code(s): I50.9 - HEART FAILURE, UNSPECIFIED Status: Acute (3) Atrial fibrillation with RVR Code(s): I48.91 - UNSPECIFIED ATRIAL FIBRILLATION Status: Acute (4) Atrial flutter with rapid ventricular response Code(s): I48.92 - UNSPECIFIED ATRIAL FLUTTER Status: Acute (5) Flash pulmonary edema Code(s): J81.0 - ACUTE PULMONARY EDEMA Status: Acute (6) Hypokalemia Code(s): E87.6 - HYPOKALEMIA Status: Acute (7) UTI (urinary tract infection) due to urinary indwelling catheter Code(s): T83.511A - I/I REACT D/T INDWELLING URETHRAL CATHETER, INIT; N39.0 - URINARY TRACT INFECTION, SITE NOT SPECIFIED Status: Acute (8) ALS (amyotrophic lateral sclerosis) Code(s): G12.21 - AMYOTROPHIC LATERAL SCLEROSIS Status: Chronic (9) Diabetes mellitus Code(s): E11.9 - TYPE 2 DIABETES MELLITUS WITHOUT COMPLICATIONS Status: Chronic (10) COPD (chronic obstructive pulmonary disease) Status: Chronic (11) DMII (diabetes mellitus, type 2) Status: Chronic (12) Hypomagnesemia Code(s): E83.42 - HYPOMAGNESEMIA Status: Acute - Plan Continue antibiotics and amiodarone. Monitor electrolytes and replete as needed Sedation and vent management as per pulm/Crtical care. Continue sliding scale insulin. Continue other supportive care. Urinary retention management as per urology.
--- NOTE | 2019-03-21 18:50 | PRG ---
DATE OF SERVICE: 03/21/2019 SUBJECTIVE: Ms. Rebolledo does not open her eyes when I examined her. Hemodynamics have been stable. Plan still is I am told to withdraw support tomorrow because of her advanced ALS. OBJECTIVE: VITAL SIGNS: Blood pressure was 106/71, heart rate 77, respiratory rate is in the teens. LUNGS: Unchanged. HEART: Unchanged. ABDOMEN: Unchanged. LABORATORY DATA: There is no new lab. No reason to continue drawing lab if removing towards supportive care. IMPRESSION: Advanced amyotrophic lateral sclerosis and respiratory failure. PLAN: Continue support, moving towards comfort measures in the morning. Job ID: [id number]
[2019-03-22] MEDS: Propofol 1,000 MG/100 ML VIAL IV PRN ×2 (00:55→09:39)
[2019-03-22] MEDS: Amiodarone 450 MG in Dextrose 5% in Water 250 ML IVPB SCH (00:55)
--- NOTE | 2019-03-22 07:54 | EKG ---
Test Reason : Blood Pressure : / mmHG Vent. Rate : 098 BPM Atrial Rate : 098 BPM P-R Int : 156 ms QRS Dur : 118 ms QT Int : 368 ms P-R-T Axes : 052 -33 012 degrees QTc Int : 469 ms Sinus rhythm with marked sinus arrhythmia Left axis deviation Low voltage QRS Right bundle branch block Inferior infarct (cited on or before 14-FEB-2017) Abnormal ECG When compared with ECG of 10-MAR-2019 14:06, (Unconfirmed) Fusion complexes are no longer Present Premature supraventricular complexes are no longer Present Confirmed by PADMINI SOLIS (2) on 03/22/2019 7:54:27 AM Referred By: RAAD Confirmed By:PADMINI SOLIS
--- NOTE | 2019-03-22 07:55 | EKG ---
Test Reason : STAT Blood Pressure : / mmHG Vent. Rate : 159 BPM Atrial Rate : 075 BPM P-R Int : 146 ms QRS Dur : 014 ms QT Int : 210 ms P-R-T Axes : -27 120 021 degrees QTc Int : 341 ms Sinus rhythm with frequent Premature ventricular complexes and Fusion complexes Indeterminate axis Pulmonary disease pattern Right ventricular hypertrophy with repolarization abnormality ST elevation consider inferolateral injury or acute infarct * ACUTE IA * Abnormal ECG When compared with ECG of 12-MAR-2019 17:26, (Unconfirmed) Significant changes have occurred Confirmed by PADMINI SOLIS (2) on 03/22/2019 7:55:40 AM Referred By: RAAD Confirmed By:PADMINI SOLIS
[2019-03-22] MEDS: metFORMIN 500 MG TAB PO SCH ×2 (07:56→17:56)
[2019-03-22] MEDS: Famotidine/PF 20 mg/2ml Vial SLOW IVP SCH (08:34)
[2019-03-22] MEDS: Pyridostigmine Bromide IR 60 MG TAB PO SCH ×2 (08:34→17:55)
[2019-03-22] MEDS: Ferrous Sulfate 325 MG TAB PO SCH (08:34)
[2019-03-22] MEDS: Apixaban 5 MG TAB PO SCH (08:34)
[2019-03-22] MEDS: Nystatin Powder 15 GM BOT TOP SCH (08:34)
[2019-03-22] MEDS: Pramipexole Di-HCl 0.25 MG TAB PO SCH (08:34)
[2019-03-22] MEDS: Aspirin Chewable 81 MG TAB PO SCH (08:34)
[2019-03-22] MEDS: Trospium 20 MG TAB PO SCH (08:35)
[2019-03-22] MEDS: Venlafaxine HCl XR 75 MG CAP PO SCH (08:35)
--- NOTE | 2019-03-22 09:31 | PRG ---
DATE OF SERVICE: 03/22/2019 TIME SPENT: 35 minutes of critical care time. SUBJECTIVE: The patient remains intubated on mechanical ventilation. Her was at the bedside and had many questions, which we discussed. OBJECTIVE: VITAL SIGNS: Temperature 98.2, pulse 74, blood pressure 112/71, currently on propofol. 24-hour intake 2201, output 1020. HEENT: Unchanged. NECK: No adenopathy or JVD. LUNGS: Clear. CARDIAC: S1 and S2. Regular. ABDOMEN: Morbidly obese. EXTREMITIES: Edematous. LABORATORY DATA: No labs were done today. ASSESSMENT: 1. Amyotrophic lateral sclerosis with progression. 2. Respiratory failure, requiring mechanical ventilation. PLAN: Compassionate extubation is planned when the family is ready. Again, I answered all the questions pertaining to the case. Job ID: [id number]
[2019-03-22] MEDS ORDERED: Scopolamine 1.5 mg/72 hour Patch TD SCH (09:45)
--- NOTE | 2019-03-22 14:58 | PDOC.PALCO ---
Palliative Care Consult - Consult Details Requesting Physician: Dr Evans Reason for Consult: goals of care, family support Family Members Present: - Pertinent HPI 68 year old female with ALS who had an onset of shortness of breath, ems was called and initial assessment patient was tachycardiac and hypertensive with poor o2 saturation and was transferred to [facility] for evaluation. No know triggers and no alleviating factors. Patient wa admitted ot the floor but 03/16 had an episode of tachycardia and required to be transferred to ICU and intubated. Patient with poor prognosis and Palliative Care consult for family support and goals of care. - Pertinent PMH CHF, ALS, Suprapubic cath - Social History Smoking Status: Current some day smoker Smoking: cigarettes Alcohol Use: none Drug Use History: none Living Situation: (Bed/recliner bound at home) - Medications MAR Reviewed: Yes - Allergies Allergies/Adverse Reactions: Allergies Allergy/AdvReac Type Severity Reaction Status Date / Time No Known Allergies Allergy Verified 03/10/19 19:19 - Objective Vital Signs: Vital Signs - Most Recent Temp Pulse Resp BP Pulse Ox 98.8 F 73 16 106/66 96 03/22/19 12:00 03/22/19 10:18 03/22/19 12:00 03/22/19 10:18 03/22/19 07:19 Palliative Performance Scale: 20 - Physical Exam Constitutional: moderate distress HEENT: moist MMs, sclera anicteric Deviation from normal: Mechanical ventilation Cardiovascular: RRR Musculoskeletal: edema present Deviation from normal: sedated Deviation from normal: sedated, does marble machine tender hand Deviation from normal: delayed cap refill to feet bilaterally - Problem List (1) Palliative care encounter Code(s): Z51.5 - ENCOUNTER FOR PALLIATIVE CARE Current Visit: Yes Status: Acute (2) CHF exacerbation Code(s): I50.9 - HEART FAILURE, UNSPECIFIED Current Visit: Yes Status: Acute (3) ALS (amyotrophic lateral sclerosis) Code(s): G12.21 - AMYOTROPHIC LATERAL SCLEROSIS Current Visit: Yes Status: Chronic (4) COPD (chronic obstructive pulmonary disease) Current Visit: No Status: Chronic - Plan/Recommendations Plan: Lengthy conversation with patient , he discussed life review with patient. has decided on compassionate extubation for 03/22. Will order Scopolamine patches for 03/22 Extubation planned for mid Friday with family at bedside. Comfort measures after extubation [60] minutes spent on this encounter with >50% of the time in counseling and coordination of care. Thank you for this very appropriate consult.
--- NOTE | 2019-03-22 15:07 | PDOC.PALPN ---
Palliative Progress Note - Subjective Patient remains on mechanical ventilation, jimenez with clear urine. unable to assess ROS as patient sedated - Objective Vital Signs: Vital Signs - Most Recent Temp Pulse Resp BP Pulse Ox 98.8 F 73 16 106/66 96 03/22/19 12:00 03/22/19 10:18 03/22/19 12:00 03/22/19 10:18 03/22/19 07:19 - Physical Exam Constitutional: mild distress HEENT: moist MMs, sclera anicteric, EOMI Deviation from normal: mechanical ventilation Cardiovascular: RRR Gastrointestinal: soft, positive bowel sounds Musculoskeletal: edema present Deviation from normal: sedated Deviation from normal: sedated - Assessment (1) Palliative care encounter Code(s): Z51.5 - ENCOUNTER FOR PALLIATIVE CARE Current Visit: Yes Status: Acute (2) CHF exacerbation Code(s): I50.9 - HEART FAILURE, UNSPECIFIED Current Visit: Yes Status: Acute (3) ALS (amyotrophic lateral sclerosis) Code(s): G12.21 - AMYOTROPHIC LATERAL SCLEROSIS Current Visit: Yes Status: Chronic (4) COPD (chronic obstructive pulmonary disease) Current Visit: No Status: Chronic - Plan Plan: Family at bedside, they stepped out with the exception of the daughter in law. Compassionate extubation, patient tolerated and is taking spontaneous respirations. Comfort measures in place. Will continue supportive measures for the family [60] minutes spent on this encounter with >50% of the time in counseling and coordination of care.
[2019-03-22] MEDS ORDERED: Atropine Sulfate 1% Ophth Soln 5 ml Bottle PO PRN (15:57)
--- NOTE | 2019-03-22 16:06 | PDOC.PALFU ---
Palliative Care Follow-up Note Patient awake, alert. Denies pain. Continued difficulty clearing oral secretions. Addition of atropine gtts to reduce oral secretions. Patient to be moved to medical floor for continued comfort measures.
--- NOTE | 2019-03-22 18:48 | PDOC.HOSPP ---
- Subjective Encounter Date: 03/22/19 Encounter Time: 19:35 Subjective: f/u resp failure on [facility] ventilation now with compassionate extubation per family request. Transitioning to comfort care. - Objective Vital Signs & Weight: Vital Signs (12 hours) Temp Pulse Resp BP Pulse Ox 03/22/19 16:00 98.4 F 96 03/22/19 12:00 98.8 F 16 03/22/19 10:18 73 106/66 03/22/19 10:00 12 03/22/19 08:00 17 03/22/19 07:19 96 03/22/19 07:07 70 102/64 03/22/19 07:00 98.2 F Weight Admit Weight 237 lb 4.8 oz Weight 253 lb Most Recent Monitor Data Heart Rate from ECG 87 NIBP 114/67 NIBP BP-Mean 82 Respiration from ECG 18 SpO2 96 I&O: 03/21/19 03/22/19 03/23/19 06:59 06:59 06:59 Intake Total 2528 2201 442 Output Total 977 1020 790 Balance 1551 1181 -348 Result Diagrams: 03/20/19 05:00 03/20/19 05:00 EKG Reviewed by me: Yes (Tele - SR) Hospitalist ROS - Medication Medications: Active Medications Generic Name Dose Route Start Last Admin Trade Name Freq PRN Reason Stop Dose Admin Acetaminophen 650 mg 03/10/19 17:39 03/14/19 04:30 Tylenol PO 650 mg Q4H PRN Administration Headache/Fever/Mild Pain (1-3) Albuterol/Ipratropium 3 ml 03/11/19 10:20 03/16/19 07:58 Duoneb NEB 3 ml O1CG-SS PRN Administration SOB &/or Wheezing Apixaban 5 mg 03/12/19 09:00 03/22/19 08:34 Eliquis PO Not Given BID [facility] Aspirin 81 mg 03/12/19 09:00 03/22/19 08:34 Aspirin Chewable PO Not Given DAILY [facility] Famotidine 20 mg 03/10/19 21:00 03/22/19 08:34 Pepcid SLOW IVP Not Given Q12HR [facility] Ferrous Sulfate 325 mg 03/11/19 21:00 03/22/19 08:34 Feosol PO Not Given BID [facility] Potassium Chloride 40 meq/ 100 mls @ 50 mls/hr 03/16/19 09:13 03/20/19 06:21 Device IVPB 100 mls ASDIR PRN Administration FOR SERUM K+ 2.5 - 3.5 Magnesium Sulfate 1 gm/ Sodium 102 mls @ 102 mls/hr 03/16/19 09:13 03/16/19 14:32 Chloride IV 102 mls PRN PRN Administration MAG LEVEL 1.4 - 2.0 Amiodarone HCl 450 mg/ 259 mls @ 0 mls/hr 03/16/19 17:15 03/22/19 00:55 Dextrose/Water IVPB 259 mls INF [facility]IRIN Administration Protocol Per Protocol Levofloxacin 500 mg/ Device 100 mls @ 100 mls/hr 03/16/19 23:59 03/21/19 23: 16 IVPB 100 mls 2359 [facility]IRIN Administration Insulin Human Lispro 0 units 03/10/19 17:44 03/21/19 06:18 Humalog SC 2 unit .MILD SLIDING SCALE PRN Administration Mild Correctional Scale Metformin HCl 1,000 mg 03/11/19 17:00 03/22/19 17:56 Glucophage PO Not Given BID-WM [facility] Nystatin 0 gm 03/14/19 21:00 03/22/19 08:34 Mycostatin Powder TOP Not Given BID [facility] Pramipexole Dihydrochloride 0.5 mg 03/12/19 09:00 03/22/19 08:34 Mirapex PO Not Given DAILY [facility] Propofol 1,000 mg 03/16/19 09:14 03/22/19 09:39 Diprivan IV 04/15/19 09:14 1,000 mg INF PRN Administration TO ACHIEVE GOAL RASS Protocol Pyridostigmine [place] 60 mg 03/11/19 15:00 03/22/19 17:55 Mestinon PO Not Given TID [facility] Scopolamine 3 mg 03/22/19 09:45 03/22/19 10:19 Transderm Scop TD 3 mg Q3D [facility] Administration Sodium Chloride 10 ml 03/10/19 17:39 03/14/19 08:40 Flush - Normal Saline IVF 10 ml Q12HR PRN Administration Saline Flush Trospium 20 mg 03/11/19 21:00 03/22/19 08:35 Trospium PO Not Given BID [facility] Venlafaxine HCl 75 mg 03/12/19 09:00 03/22/19 08:35 Effexor Xr PO Not Given DAILY [facility] - Exam General - other findings: opens eyes Eye: PERRL ENT: normocephalic atraumatic, no oropharyngeal lesions Neck: supple, symmetric, no JVD, no thyromegaly Heart: RRR, no gallops, no rubs, normal peripheral pulses Respiratory - other findings: diminished in bases Gastrointestinal: soft, non-tender, non-distended, normal bowel sounds Extremities: no cyanosis, no clubbing Skin: normal turgor Neurological: no new deficit Musculoskeletal: generalized weakness Hosp A/P (1) Acute respiratory failure with hypoxia Code(s): J96.01 - ACUTE RESPIRATORY FAILURE WITH HYPOXIA Status: Acute Plan: compassionate extubation today per family request, transitioning to comfort measures (2) Atrial fibrillation with RVR Code(s): I48.91 - UNSPECIFIED ATRIAL FIBRILLATION Status: Acute Plan: SR currently (3) Flash pulmonary edema Code(s): J81.0 - ACUTE PULMONARY EDEMA Status: Acute (4) UTI (urinary tract infection) due to urinary indwelling catheter Code(s): T83.511A - I/I REACT D/T INDWELLING URETHRAL CATHETER, INIT; N39.0 - URINARY TRACT INFECTION, SITE NOT SPECIFIED Status: Acute Plan: Enterococcus and Staph spp on Levaquin (5) ALS (amyotrophic lateral sclerosis) Code(s): G12.21 - AMYOTROPHIC LATERAL SCLEROSIS Status: Chronic Plan: Progressive, transitioning to comfort care after compassionate extubation - Plan continue antibiotics, marriage and family social worker Transfer to medical floor Comfort care per Palliative team Pain control as clinically indicated Continue Levaquin Asifonebs prn Code Status: DNAR
[2019-03-22] MEDS: Morphine 2 MG/ML SYRINGE SLOW IVP PRN (22:22)
[2019-03-23] MEDS: Morphine 2 MG/ML SYRINGE SLOW IVP PRN ×2 (00:09→10:52)
[2019-03-23 08:41] VITALS: BP 95/58; TEMP 97.8
--- NOTE | 2019-03-23 10:35 | PRG ---
DATE OF SERVICE: 03/23/2019 SUBJECTIVE: She is sleeping comfortably. She required a dose of Ativan earlier for some respiratory distress. OBJECTIVE: VITAL SIGNS: Temperature 97.8, pulse 63, respirations 16, O2 saturation 93% on 2.5 L, and blood pressure 95/58. HEENT: Unremarkable. NECK: Upper airway noises. LUNGS: Coarse rhonchi. CARDIAC: S1 and S2, regular. ASSESSMENT: Amyotrophic lateral sclerosis with progressive bulbar symptoms. PLAN: I think she had a brief honeymoon period yesterday after extubation, but I anticipate her slowly worsening over time. I agree with the plan for inpatient hospice. Job ID: [id number]
--- NOTE | 2019-03-23 23:58 | DIS ---
DATE OF ADMISSION: 03/10/2019 DATE OF DISCHARGE: 03/23/2019 DISCHARGE DIAGNOSES: 1. Acute hypoxic respiratory failure, multifactorial, status post extubation on 03/22/2019. 2. Atrial fibrillation with rapid ventricular response with sinus mechanism. 3. Flash pulmonary edema. 4. Urinary tract infection due to indwelling Meneses catheter with enterococcus and Staphylococcus species. 5. Amyotrophic lateral sclerosis, progressive and end-stage. CONSULTATIONS: 1. Dr. Berkowitz and Dr. Yoder with Pulmonology Service. 2. Dr. Snyder with Electrophysiology Service. 3. Dr. Vivas with Cardiology Service. 4. Palliative Care Service. PERTINENT LABORATORY AND X-RAY FINDINGS: Potassium ranged between 3.2 to 4.4. Lactic acid level ranged between 2.0 to 5.4. BNP ranged between 422 to 1033. Troponin I ranged between 0.020 to 0.117. CBC showed a hemoglobin ranged between 11.5 to 15.2. Urine culture dated 03/10/2019, positive for Enterococcus faecalis and Staphylococcus aureus species. Blood cultures x2 dated 03/10/2019, showed no growth at 5 days. Influenza A and B antigen dated 03/10/2019, negative. Portable chest x-ray dated 03/10/2019, showed no acute cardiopulmonary process. CT of the brain without contrast dated 03/10/2019, showed no acute intracranial process. CT angiogram of the chest dated 03/10/2019, showed no acute thromboembolism. Bibasilar atelectasis noted. Bilateral adrenal masses. 2D transthoracic echocardiogram dated 03/16/2019, showed ejection fraction of 20% to 30%. Technically limited study due to tachycardia. Moderate mitral and tricuspid regurgitation. No significant aortic stenosis or regurgitation. HOSPITAL COURSE: The patient was initially admitted after initially presenting with increased shortness of breath, tachycardia, and low oxygen saturations. The patient underwent extensive evaluation and initially treated for urinary tract infection due to chronic indwelling catheter. The patient was placed on broad-spectrum IV antibiotic therapy with urine culture showing Enterococcus and Staphylococcus aureus species. The patient was also noted with tachycardia at the time of admission, felt to be atrial fibrillation/flutter. The patient received aggressive IV fluid hydration as well as Cardizem bolus and cardiac monitoring. The patient was evaluated by the Cardiology Service with recommendations for a trial of Multaq. The patient received treatment doses for subcutaneous Lovenox. The patient was also treated for suspected congestive heart failure exacerbation with fluid monitoring and intermittent Lasix. The patient eventually transitioned to diltiazem as well as Eliquis for anticoagulation. The patient did develop a flash pulmonary edema during the hospital course, necessitating a transfer to the intermediate care unit for BiPAP noninvasive mechanical ventilation, likely multifactorial including progressive ALS in conjunction with congestive heart failure. The patient received diuresis and oxygen support, stabilizing and transitioning back to the telemetry unit. The patient had subsequent repeat respiratory distress and failure necessitating transfer to the Critical Care Unit. The patient clinically decompensated requiring intubation and mechanical ventilation. The patient was treated aggressively at the direction of the Pulmonology Critical Care Service, however, clinically did not improve with aggressive supportive measures. Due to the patient's multiple comorbid status and failing respiratory status, discussions were had with Palliative Care Service regarding comfort care. The family decided to pursue comfort measures, at which point, the patient was compassionately extubated on 03/22/2019. The patient transitioned to general inpatient hospice care on 03/23/2019, after transfer to the oncology floor. I have examined the patient at time of transfer and discharged with family in agreement with course of action and disposition. MEDICATIONS: At the time of discharge: 1. Enteric-coated aspirin 81 mg daily. 2. Plavix 75 mg daily. 3. Lasix 20 mg daily. 4. Multivitamin 1 tablet p.o. daily. 5. Mestinon 60 mg p.o. t.i.d. 6. Effexor XR 75 mg p.o. daily. 7. Ferrous sulfate 325 mg b.i.d. FOLLOWUP: The patient will transition to general inpatient hospice care on 03/22/2019. CONDITION AT THE TIME OF DISCHARGE: Guarded. ACTIVITY: Bed-bound. DIET: N.p.o. CODE STATUS: Do not attempt resuscitation. DISPOSITION: Transfer of care to general inpatient hospice on 03/22/2019. Job ID: [id number]
--- NOTE | 2019-03-25 07:25 | PQF ---
WILLIE GREEN CHARLES DO [id number] [id number] CLINICAL DOCUMENTATION CLARIFICATION FORM: POST DISCHARGE Addendum to original discharge summary date: ____ Late entry note date: __ DATE: 03-25-19 ATTN: Dr.Cole Velasco Please exercise your independent, professional judgment in responding to the clarification form. Clinical indicators are provided on the bottom of this form for your review Diagnosis: Acute Hypoxic respiratory failure Present on Admission (POA): [ ] Yes [ x ] No [ ] Unable to determine Coding guidelines require hospitals to identify whether a diagnosis was present on admission (POA) or not. To accurately assign the appropriate POA indicator, this information must be clearly documented within the medical record. CLINICAL INDICATORS : ED provider p1 03/10-Patient presenr for evaluation of Shrotness of breath ED provider p1 03/10-Presents to ED via EMS from home with c/o of intermittent difficulty breathing with mental status decline for the past 2-3 days per EMS ED provider p2 03/10-Respiratory rate : 26 ED provider p4 03/10-She presented with a heart rate in the 140's and hypoxia with sats in the low 90% Hospitalist PN p1 03/16-Code blue called this am when pt was noted with resp distress, tachycardic with nursing noting increased dyspnea RISK FACTORS: Hospitalist PN p6 03/13-Acute Hypoxic Respiratory Failure Hospitalist PN p6 03/13-Flash Pumonary edema Hospitalist PN p6 03/13-CHF TREATMENT: H&P p4 03/10-ABS requested. Monitor O2 sats Hospitalist PN p6 03/13-Required BiPap Hospitalist PN p7 03/16-Intubated on Mechanical Ventilator (This form is maintained as a part of the permanent medical record) 2014 [employer]. All Rights Reserved Na [email or web address] [not provided] MTDD
== END 2019-03-23 11:27 | disposition hospice, inpatient (51) | DRG 698 ==
LOC: ERS 13:50 → 2NO 16:23 → CCU 03-13 02:44 → 2NO 03-13 11:50 → CCU 03-16 08:56 → ONC 03-22 21:11
PROVIDERS: ADMIT Internal Medicine; ATTEND Internal Medicine
PROC: 0T2BX0Z Change Drainage Device in Bladder, External Approach (ICD-10-PCS; principal; 2019-03-11)
PROC: 5A09357 Assistance with Respiratory Ventilation, Less than 24 Consecutive Hours, Continuous Positive Airway Pressure (ICD-10-PCS; 2019-03-12)
PROC: 0BH18EZ Insertion of Endotracheal Airway into Trachea, Via Natural or Artificial Opening Endoscopic (ICD-10-PCS; 2019-03-16)
PROC: 02HV33Z Insertion of Infusion Device into Superior Vena Cava, Percutaneous Approach (ICD-10-PCS; 2019-03-16)
PROC: B548ZZA Ultrasonography of Superior Vena Cava, Guidance (ICD-10-PCS; 2019-03-16)
PROC: 5A1955Z Respiratory Ventilation, Greater than 96 Consecutive Hours (ICD-10-PCS; 2019-03-16)
DX: T83.518A Infection and inflammatory reaction due to other urinary catheter, initial encounter (principal); J81.0 Acute pulmonary edema; J96.21 Acute and chronic respiratory failure with hypoxia; I50.23 Acute on chronic systolic (congestive) heart failure; G12.21 Amyotrophic lateral sclerosis; I48.92 Unspecified atrial flutter; Z68.41 Body mass index [BMI] 40.0-44.9, adult; I42.9 Cardiomyopathy, unspecified; Z66 Do not resuscitate; Z51.5 Encounter for palliative care; E11.9 Type 2 diabetes mellitus without complications; F17.290 Nicotine dependence, other tobacco product, uncomplicated; K59.09 Other constipation; Y84.6 Urinary catheterization as the cause of abnormal reaction of the patient, or of later complication, without mention of misadventure at the time of the procedure; R33.9 Retention of urine, unspecified; J44.9 Chronic obstructive pulmonary disease, unspecified; E87.6 Hypokalemia; I44.7 Left bundle-branch block, unspecified; E66.01 Morbid (severe) obesity due to excess calories; N31.2 Flaccid neuropathic bladder, not elsewhere classified; B95.8 Unspecified staphylococcus as the cause of diseases classified elsewhere; B95.2 Enterococcus as the cause of diseases classified elsewhere; I48.0 Paroxysmal atrial fibrillation; E83.42 Hypomagnesemia; Z79.899 Other long term (current) drug therapy; Z90.710 Acquired absence of both cervix and uterus; Z79.84 Long term (current) use of oral hypoglycemic drugs; Z79.01 Long term (current) use of anticoagulants; Z87.440 Personal history of urinary (tract) infections; Z79.82 Long term (current) use of aspirin; Z79.02 Long term (current) use of antithrombotics/antiplatelets; Z74.01 Bed confinement status
CPT/HCPCS: 36415; 36416; 70450; 71045; 71275; 80048; 80053; 81003; 81015; 82330; 82565; 82803; 82805; 83605; 83735; 83880; 84484; 85014; 85018; 85025; 85049; 87040; 87077; 87086; 87186; 87804; 93005; 93010; 93306; 94002; 94003; 94640; 94660; 96361; 96365; 96366; 96367; J0282; J0696; J1650; J1940; J1956; J2060; J2185; J2270; J2704; J3370; J3475; J3480; J3490; J7050; J7070; J7620; Q9966; S0028

== ENCOUNTER 2019-03-23 12:55 | Inpatient (IN) | payer BC, MEDICARE, OTHER ==
[2019-03-23] MEDS ORDERED: Scopolamine 1.5 mg/72 hour Patch TOP PRN (13:18)
[2019-03-23] MEDS ORDERED: Morphine 4 MG/ML VIAL SLOW IVP PRN (13:18)
[2019-03-23] MEDS ORDERED: Ondansetron PF 4 MG/2 ML Vial IVP PRN (13:18)
[2019-03-23] MEDS: Morphine 2 MG/ML SYRINGE SLOW IVP PRN ×2 (14:30→16:32)
[2019-03-23] MEDS ORDERED: Lorazepam 2 MG/ML VIAL SLOW IVP SCH (15:00)
[2019-03-23 16:03] VITALS: BMI 43.0
[2019-03-23] MEDS: Lorazepam 2 MG/ML VIAL SLOW IVP SCH ×2 (17:56→21:23)
[2019-03-23] MEDS: Morphine 2 MG/ML SYRINGE SLOW IVP SCH ×3 (17:59→22:08)
[2019-03-24] MEDS: Morphine 2 MG/ML SYRINGE SLOW IVP SCH ×12 (00:03→22:44)
[2019-03-24] MEDS: Lorazepam 2 MG/ML VIAL SLOW IVP SCH ×6 (01:03→20:10)
[2019-03-25] MEDS: Morphine 2 MG/ML SYRINGE SLOW IVP SCH ×12 (00:21→21:57)
[2019-03-25] MEDS: Lorazepam 2 MG/ML VIAL SLOW IVP SCH ×6 (00:21→21:56)
[2019-03-26] MEDS: Morphine 2 MG/ML SYRINGE SLOW IVP SCH ×12 (00:46→22:30)
[2019-03-26] MEDS: Lorazepam 2 MG/ML VIAL SLOW IVP SCH ×6 (01:59→21:37)
[2019-03-26] MEDS ORDERED: Scopolamine 1.5 mg/72 hour Patch TOP PRN (09:18)
[2019-03-27] MEDS: Morphine 2 MG/ML SYRINGE SLOW IVP SCH ×8 (00:35→14:14)
[2019-03-27] MEDS: Lorazepam 2 MG/ML VIAL SLOW IVP SCH ×6 (01:30→20:18)
[2019-03-27] MEDS: Morphine 2 MG/ML SYRINGE SLOW IVP PRN (15:39)
[2019-03-27] MEDS ORDERED: Acetaminophen 650 MG Suppository PR PRN (15:49)
[2019-03-27] MEDS ORDERED: Lorazepam 2 MG/ML VIAL SLOW IVP PRN ×2 (15:50→16:11)
[2019-03-27] MEDS: Morphine 4 MG/ML VIAL SLOW IVP SCH ×4 (16:40→22:05)
[2019-03-27 19:35] VITALS: BP 135/86; TEMP 102.7
[2019-03-28] MEDS: Morphine 4 MG/ML VIAL SLOW IVP SCH (00:25)
[2019-03-28] MEDS: Lorazepam 2 MG/ML VIAL SLOW IVP SCH (00:25)
--- NOTE | 2019-03-30 08:59 | DIS ---
DATE OF ADMISSION: 03/23/2019 DATE OF DISCHARGE: 03/28/2019 DATE OF : 03/28/2019. ADMISSION DIAGNOSIS: End-stage amyotrophic lateral sclerosis. DISCHARGE DIAGNOSIS: End-stage amyotrophic lateral sclerosis. HOSPITAL COURSE: This is a 68-year-old female with known end-stage ALS with a chronic suprapubic catheter. She was having increasing shortness of breath while at home and tachycardic in the 140s, was brought to the hospital, was not responding well to treatments and she was becoming more weak ALS, they knew there was nothing more that could be done, so discussed with family and the hospital staff. They consulted Inpatient Hospice. [facility] was consulted. She was kept comfortable and out of pain and on March 28, she ceased respirations and peacefully. Her was at bedside. Job ID: [id number]
== END 2019-03-28 01:15 | disposition expired | DRG 951 ==
LOC: ONC 12:55
PROVIDERS: ADMIT Internal Medicine; ATTEND Internal Medicine
DX: Z51.5 Encounter for palliative care (principal); G12.21 Amyotrophic lateral sclerosis; E11.9 Type 2 diabetes mellitus without complications; Z74.01 Bed confinement status; Z66 Do not resuscitate
CPT/HCPCS: J2060; J2270